=== PATIENT | male | born 1945 | race Caucasian/White ===

== ENCOUNTER 2017-06-30 12:28 | Emergency (ER) | payer MEDICARE, OTHER ==
[2017-06-30] MEDS ORDERED: Acetaminophen 500 MG Tab PO ONE (12:40)
--- NOTE | 2017-06-30 12:49 | EDM.PDOC ---
ED HPI GENERAL MEDICAL PROBLEM - General Chief Complaint: General Stated Complaint: BY AMBULANCE Time Seen by Provider: 06/30/17 12:46 Source of Information: Reports: Patient History Limitations: Reports: No Limitations - History of Present Illness INITIAL COMMENTS - FREE TEXT/NARRATIVE: Pt presents to the ER per [facility] with c/o fever, weakness, sore throat, cough. He and his state that he began experiencing cold symptoms about 3 days ago. Yesterday he began spiking a fever and feeling more sob. states he has been very weak and sleeping more. He states he has had a sore throat and cough productive of yellow phlegm. Pt denies chest pains, N/V/D. Onset: Gradual Onset Date: 06/27/17 Location: Reports: Head, Neck, Chest - Related Data Allergies Allergy/AdvReac Type Severity Reaction Status Date / Time azithromycin [From Zithromax] Allergy rash/hives Verified 06/30/17 12:41 Home Meds: Home Meds Allopurinol [Zyloprim] 1 tab PO DAILY 06/30/17 [History] Carvedilol [Carvedilol] 1 tab PO BID 06/30/17 [History] Digoxin [Digoxin] 1 tab PO DAILY 06/30/17 [History] Furosemide [Furosemide] 1 tab PO DAILY 06/30/17 [History] Glimepiride [Amaryl] 1 tab PO DAILY 06/30/17 [History] Losartan [Cozaar] 1 tab PO DAILY 06/30/17 [History] Simvastatin [Zocor] 1 tab PO BEDTIME 06/30/17 [History] Warfarin Sodium [Jantoven] 1 tab PO ASDIRECTED 06/30/17 [History] Warfarin Sodium [Jantoven] 7.5 mg PO ASDIRECTED 06/30/17 [History] metFORMIN HCl [Metformin HCl] 1 tab PO BID 06/30/17 [History] ED ROS GENERAL - Review of Systems Review Of Systems: ROS reveals no pertinent complaints other than HPI. ED EXAM, SEPSIS - Physical Exam Exam: See Below Exam Limited By: No Limitations General Appearance: Alert, WD/WN, Mild Distress Eye Exam: Bilateral Eye: EOMI, Normal Inspection, PERRL (3 brisk) Ears: Normal External Exam, Hearing Grossly Normal Nose: Normal Inspection Throat/Mouth: Normal Voice, No Airway Compromise, Other (pharyngeal erythema) Head: Atraumatic, Normocephalic Neck: Normal Inspection, Supple, Non-Tender, Full Range of Motion Respiratory/Chest: No Accessory Muscle Use, Chest Non-Tender, Decreased Breath Sounds, Rhonchi Cardiovascular: Tachycardia, Irregularly Irregular Peripheral Pulses: 1+: Radial (L), Radial (R), Dorsalis Pedis (L), Dorsalis Pedis (R) GI/Abdominal Exam: Normal Bowel Sounds, Soft, Non-Tender, No Organomegaly, No Distention, No Abnormal Bruit, No Mass (Male) Exam: Deferred Rectal (Males) Exam: Deferred Back: Normal Inspection, Full Range of Motion Extremities: Normal Inspection, Normal Range of Motion, Non-Tender, No Pedal Edema, Normal Capillary Refill Neurological: Alert, Oriented, Normal Cognition, Normal Gait, No Motor/Sensory Deficits, Slow to Respond Psychiatric: Normal Affect, Normal Mood Skin: Warm, Dry, Intact, Normal Color, No Rash Lymphatic: Bilateral: No Adenopathy EKG INTERPRETATION EKG Date: 06/30/17 Time: 12:38 Rhythm: A-Fib Rate (Beats/Min): 146 Comparison: NA - No Prior EKG Course - Vital Signs Last Recorded V/S: Last Vital Signs Temp 103 F H 06/30/17 14:52 Pulse 132 H 06/30/17 13:51 Resp 22 H 06/30/17 13:51 BP 119/84 06/30/17 13:51 Pulse Ox 99 06/30/17 13:51 - Orders/Labs/Meds Orders: Active Orders 24 hr Category Date Time Status EKG Documentation Completion [RC] STAT Care 06/30/17 12:40 Active CULTURE BLOOD [BC] Stat Lab 06/30/17 12:50 Received CULTURE BLOOD [BC] Stat Lab 06/30/17 12:58 Received Blood Culture x2 Reflex Set [OM.PC] Stat Oth 06/30/17 12:40 Ordered Labs: Laboratory Tests 06/30/17 06/30/17 06/30/17 Range/Units 12:50 12:50 12:50 WBC 15.8 H (5.0-10.0) 10^3/uL RBC 4.39 L (4.6-6.2) 10^6/uL Hgb 13.2 L (14.0-18.0) g/dL Hct 39.2 L (40.0-54.0) % MCV 89.3 (80-100) fL MCH 30.1 (27.0-34.0) pg MCHC 33.7 (33.0-35.0) g/dL Plt Count 214 (150-450) 10^3/uL Neut % (Auto) 77.3 H (42.2-75.2) % Lymph % (Auto) 14.2 L (20.5-50.1) % Hutchinson % (Auto) 8.1 H (2-8) % Eos % (Auto) 0.2 L (1.0-3.0) % Baso % (Auto) 0.2 (0.0-1.0) % PT (9.0-12.0) SEC INR (0.9-1.2) Sodium 137 (135-145) mmol/L Potassium 3.9 (3.6-5.0) mmol/L Chloride 105 (101-111) mmol/L Carbon Dioxide 22.0 (21.0-31.0) mmol/L Anion Gap 13.9 BUN 20 H (7-18) mg/dL Creatinine 1.5 H (0.6-1.3) mg/dL Est Cr Clr Drug Dosing 41.01 mL/min Estimated GFR (MDRD) 46 BUN/Creatinine Ratio 13.33 Glucose 179 H (74-105) mg/dL Lactic Acid 1.8 (0.5-2.2) mmol/L Calcium 8.7 (8.4-10.2) mg/dl Total Bilirubin 0.9 (0.2-1.0) mg/dL AST 21 (10-42) IU/L ALT 14 (10-60) IU/L Alkaline Phosphatase 40 L (42-121) IU/L Troponin I < 0.02 (0.00-0.02) ng/ml B-Natriuretic Peptide (0-100) pg/ml Total Protein 7.7 (6.7-8.2) g/dl Albumin 3.8 (3.2-5.5) g/dl Globulin 3.9 Albumin/Globulin Ratio 0.97 Digoxin (0-2.5) ng/ml 06/30/17 06/30/17 06/30/17 Range/Units 12:50 12:50 12:50 WBC (5.0-10.0) 10^3/uL RBC (4.6-6.2) 10^6/uL Hgb (14.0-18.0) g/dL Hct (40.0-54.0) % MCV (80-100) fL MCH (27.0-34.0) pg MCHC (33.0-35.0) g/dL Plt Count (150-450) 10^3/uL Neut % (Auto) (42.2-75.2) % Lymph % (Auto) (20.5-50.1) % Hutchinson % (Auto) (2-8) % Eos % (Auto) (1.0-3.0) % Baso % (Auto) (0.0-1.0) % PT 17.7 H (9.0-12.0) SEC INR 1.8 H (0.9-1.2) Sodium (135-145) mmol/L Potassium (3.6-5.0) mmol/L Chloride (101-111) mmol/L Carbon Dioxide (21.0-31.0) mmol/L Anion Gap BUN (7-18) mg/dL Creatinine (0.6-1.3) mg/dL Est Cr Clr Drug Dosing mL/min Estimated GFR (MDRD) BUN/Creatinine Ratio Glucose (74-105) mg/dL Lactic Acid (0.5-2.2) mmol/L Calcium (8.4-10.2) mg/dl Total Bilirubin (0.2-1.0) mg/dL AST (10-42) IU/L ALT (10-60) IU/L Alkaline Phosphatase (42-121) IU/L Troponin I (0.00-0.02) ng/ml B-Natriuretic Peptide 102 H (0-100) pg/ml Total Protein (6.7-8.2) g/dl Albumin (3.2-5.5) g/dl Globulin Albumin/Globulin Ratio Digoxin 1.1 (0-2.5) ng/ml Meds: Medications Discontinued Medications Generic Name Dose Route Start Last Admin Trade Name Freq PRN Reason Stop Dose Admin Acetaminophen 1,000 mg 06/30/17 12:40 06/30/17 12:53 Tylenol Extra Strength PO 06/30/17 12:41 1,000 mg ONETIME ONE Administration Diltiazem HCl 25 mg 12/16/17 14:30 06/30/17 14:41 Diltiazem IVPUSH 06/30/17 14:31 25 mg ONETIME ONE Administration Sodium Chloride 1,000 mls @ 100 mls/hr 06/30/17 13:15 06/30/17 13:09 Normal Saline IV 100 mls/hr ASDIRECTED ALEX Administration Levofloxacin/Dextrose 500 mg/ 100 mls @ 100 mls/hr 06/30/17 14:29 06/30/17 14 :59 Premix IV 06/30/17 15:28 100 mls/hr ONETIME ONE Administration Ibuprofen 600 mg 06/30/17 14:29 06/30/17 14:52 Motrin PO 06/30/17 14:30 600 mg ONETIME ONE Administration - Radiology Interpretation Free Text/Narrative:: Portable Chest xray: Cardiomegaly with very mild CHF. No pneumonia See rad report Departure - Departure Time of Disposition: 15:14 Disposition: DC/Tfer to [facility] Condition: Fair, Serious Clinical Impression: Hyperthermia, Neutrophilic leukocytosis - Discharge Information Referrals: PCP,None [Primary Care Provider] - Forms: ED Department Discharge, Interfacility Transfer EMTALA - My Orders Last 24 Hours: My Active Orders 06/30/17 12:40 EKG Documentation Completion [RC] STAT Blood Culture x2 Reflex Set [OM.PC] Stat 06/30/17 12:50 CULTURE BLOOD [BC] Stat 06/30/17 12:58 CULTURE BLOOD [BC] Stat - Assessment/Plan Last 24 Hours: My Active Orders 06/30/17 12:40 EKG Documentation Completion [RC] STAT Blood Culture x2 Reflex Set [OM.PC] Stat 06/30/17 12:50 CULTURE BLOOD [BC] Stat 06/30/17 12:58 CULTURE BLOOD [BC] Stat
[2017-06-30] MEDS ORDERED: Sodium Chloride 0.9% 1,000 ML IV SCH (13:15)
[2017-06-30 13:22] LABS: CHLORIDE,CL 105 mmol/L (101-111); SODIUM,NA 137 mmol/L (135-145)
[2017-06-30] MEDS ORDERED: Ibuprofen 600 MG Tab PO ONE (14:29)
[2017-06-30] MEDS ORDERED: Levofloxacin/Dextrose 5%-Water 500 MG in Premix Bag 1 BAG IV ONE (14:29)
[2017-06-30] MEDS ORDERED: Diltiazem 25 MG/5 ML SDV IVPUSH ONE (14:30)
--- NOTE | 2017-07-04 10:50 | EKG ---
06/30/2017 - SHANTI ORTIZ - FINDINGS: I reviewed the EKG and agree with the machine's reading. [facility] /[id number]
== END 2017-06-30 15:14 ==
LOC: DL.ED 12:28
DX: D72.829 Elevated white blood cell count, unspecified (principal); R06.02 Shortness of breath; Z88.1 Allergy status to other antibiotic agents; Z79.899 Other long term (current) drug therapy; Z79.01 Long term (current) use of anticoagulants; Z79.84 Long term (current) use of oral hypoglycemic drugs
CPT/HCPCS: 36415; 71010; 80053; 80162; 83605; 83880; 84484; 85025; 85610; 87040; 87804; 93005; 93010; 96361; 96374; 96375; 99285; A9270; J1956; J3490; J7030

== ENCOUNTER 2020-12-22 05:31 | Day surgery (SDC) | payer MEDICARE, OTHER ==
[~2020-12-22 05:31] MED LIST: Dextrose 5%-0.45% NaCl 1,000 ML IV SCH; Midazolam 1 MG/ML 2 ML SDV ONE; Sodium Chloride 0.9% 10 ML Syringe FLUSH PRN; fentaNYL 100 MCG/2 ML SDV ONE
[2020-12-22] MEDS ORDERED: fentaNYL 100 MCG/2 ML SDV IV ONE ×3 (05:32→06:51)
[2020-12-22] MEDS ORDERED: Midazolam 1 MG/ML 2 ML SDV IV ONE ×4 (05:32→06:54)
--- NOTE | 2020-12-22 07:56 | OR ---
DATE: 12/22/2020 PROCEDURE: Esophagogastroduodenoscopy and multiple pinch biopsies. INSTRUMENT USED: [id number]-[id number] Olympus video panendoscope. PREMEDICATIONS: No oral or topical anesthesia used. Fentanyl 100 mcg intravenous, Versed 2 mg intravenous. Nasal O2 cannula. The procedure was done under pulse oximetry, BP recording, and hall monitor. INDICATION: The patient with unexplained iron deficiency anemia on long-term Coumadin. DESCRIPTION OF PROCEDURE: Esophagogastroduodenoscopy is performed for detection of any active erosive lesions, Burden esophagus and/or malignancy also under consideration, H pylori status to be determined, small bowel biopsies to be obtained for celiac disease if indicated, endoscopic hemostasis therapy if needed. The scope was passed with ease. Adequate visualization of the esophagus was made from proximal to distal areas. No esophageal lesions identified. No distal esophageal stricture. No uphill or downhill esophageal varices. No Vernell-Nixon tear. No evidence of erosive esophagitis by [place] criteria. No esophageal polyp or tumor mass identified. Z-line was seen at around 39 cm distal to the oral verge. No proximal gastric varices noted. Gastric fundus examination by retroflexion showed no polypoid lesions. No gastric ulcer, malignant mass, or vascular ectasia identified. Few scattered gastric antral erosions were noted without bleeding from them. Duodenal bulb showed no ulcer. Visualized second part of the duodenum was unremarkable. Multiple pinch biopsies were taken from the gastric antrum and proximal body, and sent for PyloriTek test for H pylori, and if negative in an hour, tissue is to be sent for histopathology. No bleeding was noted from any of the visualized areas at the completion of examination. Photographs were taken of the duodenal bulb, gastric antrum, fundus, and distal esophagus. IMPRESSION: Gastric antral erosions. The patient tolerated the procedure well. [facility] /[id number]
== END 2020-12-22 09:03 | disposition home or self-care (01) ==
LOC: DL.ENDO 05:31
PROVIDERS: ATTEND Internal Medicine Gastroenterology
DX: K25.9 Gastric ulcer, unspecified as acute or chronic, without hemorrhage or perforation (principal); D64.9 Anemia, unspecified; E11.22 Type 2 diabetes mellitus with diabetic chronic kidney disease; I13.0 Hypertensive heart and chronic kidney disease with heart failure and stage 1 through stage 4 chronic kidney disease, or unspecified chronic kidney disease; N18.9 Chronic kidney disease, unspecified; I50.9 Heart failure, unspecified; I48.20 Chronic atrial fibrillation, unspecified
CPT/HCPCS: 87077; 88305; J2250; J3010; J7042

== ENCOUNTER 2020-12-31 06:00 | Day surgery (SDC) | payer MEDICARE, OTHER ==
[~2020-12-31 06:00] MED LIST changes: -Dextrose 5%-0.45% NaCl 1,000 ML IV SCH; -Sodium Chloride 0.9% 10 ML Syringe FLUSH PRN; -fentaNYL 100 MCG/2 ML SDV ONE
[2020-12-31] MEDS ORDERED: fentaNYL 100 MCG/2 ML SDV IV ONE ×3 (06:01→07:20)
[2020-12-31] MEDS ORDERED: fentaNYL 100 MCG/2 ML SDV ONE (06:01)
[2020-12-31] MEDS ORDERED: Midazolam 1 MG/ML 2 ML SDV IV ONE ×5 (06:01→07:42)
[2020-12-31] MEDS ORDERED: Dextrose 5%-0.45% NaCl 1,000 ML IV SCH (06:15)
--- NOTE | 2020-12-31 08:57 | OR ---
DATE: 12/31/2020 PROCEDURES: Total colonoscopy, narrow band imaging, multiple cold snare polypectomies, and biopsies. INSTRUMENT USED: [id number]-[id number] Olympus video colonoscope. PREMEDICATIONS: Fentanyl 100 mcg intravenous, Versed 3 mg intravenous. Nasal O2 cannula. The procedure was done under pulse oximetry, BP recording, and marketing support assistant. INDICATION: The patient with unexplained iron deficiency anemia. Colonoscopic examination is done for detection of any polypoid lesions and removal, endoscopic hemostasis therapy if needed. DESCRIPTION OF PROCEDURE: Initial rectal exam showed large polypoid mass at finger tip.Rigid anoscopy showed the large sessile polyp. Colonoscope was passed with ease. More than 2 cm sized sessile polyp noted in the distal rectum, villous configuration. NBI and magnification views were obtained. Multiple pinch biopsies were obtained and sent for histopathology. In the proximal sigmoid colon, 1 cm sized benign-appearing polyp was noted. Cold snare polypectomy was done. The tissue was retrieved and sent for histopathology. Polypectomy site was found to be clean. Photographs were obtained. Numerous scattered diverticula were noted in the distal left colon along with deformity. The scope was passed with ease up to the ileocecal area. Photographs were taken of the normal-appearing cecum, identified by landmarks of appendiceal orifice and double-bulged ileocecal folds. No bleeding was noted from any of the visualized areas at the commencement of the examination. The bowel preparation was found to be adequate, [place] scale 2 in all the regions, total score 6. In the mid ascending colon, around 2 cm sized superficial sessile polyp was noted. NBI views were obtained and photographs were taken. Numerous scattered diminutive polyps were noted, the ones in mid ascending colon and mid transverse colon removed by cold biopsy polypectomy technique. Probing the proximal sides of folds and flexures using adequate distention and clearing of the stool material, withdrawal of the scope was made. No bleeding was noted from any of the visualized areas at the completion of examination. IMPRESSION: 1. Diverticulosis. 2. Multiple colonic polyps. The patient tolerated the procedure well. [facility] [place] /[id number] OZZIE
== END 2020-12-31 10:08 | disposition home or self-care (01) ==
LOC: DL.ENDO 06:00
PROVIDERS: ATTEND Internal Medicine Gastroenterology
DX: D12.5 Benign neoplasm of sigmoid colon (principal); D12.8 Benign neoplasm of rectum; D12.2 Benign neoplasm of ascending colon; D12.3 Benign neoplasm of transverse colon; K57.30 Diverticulosis of large intestine without perforation or abscess without bleeding; D50.9 Iron deficiency anemia, unspecified; E11.22 Type 2 diabetes mellitus with diabetic chronic kidney disease; I13.0 Hypertensive heart and chronic kidney disease with heart failure and stage 1 through stage 4 chronic kidney disease, or unspecified chronic kidney disease; N18.9 Chronic kidney disease, unspecified; I50.9 Heart failure, unspecified; I48.20 Chronic atrial fibrillation, unspecified
CPT/HCPCS: 88305; J2250; J3010; J7042

== ENCOUNTER 2021-05-10 02:54 | Inpatient (IN) | payer MEDICARE, OTHER ==
[2021-05-10] MEDS ORDERED: Sodium Chloride 0.9% 1,000 ML IV ONE (03:33)
--- NOTE | 2021-05-10 03:58 | EDM.PDOC ---
ED HPI GENERAL MEDICAL PROBLEM - General Chief Complaint: Fever Stated Complaint: AMBULANCE Time Seen by Provider: 05/10/21 03:25 Source of Information: Reports: Patient, EMS, RN History Limitations: Reports: No Limitations - History of Present Illness INITIAL COMMENTS - FREE TEXT/NARRATIVE: ED via [facility] with generalized weakness, lower abdominal pain, hx colon cancer near rectum. pain intermittent and not new for patient. Weakness also comes and goes. getting out of bed [employer] and went only to knee and could not get up off floor No fever, Diarrhea today, maybe some blood not sure, Has had radiation and oral chemo. Last at [facility] on 04/27. Surgery scheduled for june for area next to rectum that radiation did not effect. No known exposure to flu or COVID - Related Data Allergies Allergy/AdvReac Type Severity Reaction Status Date / Time azithromycin [From Zithromax] Allergy rash/hives Verified 12/31/20 06:11 lisinopril AdvReac Cough Verified 12/31/20 06:11 Home Meds: Home Meds Digoxin 125 mcg PO DAILY 06/30/17 [History] Furosemide 20 mg PO DAILY 06/30/17 [History] Glimepiride [Amaryl] 4 mg PO DAILY 06/30/17 [History] carvediloL [Carvedilol] 6.25 mg PO BID 06/30/17 [History] Warfarin Sodium [Jantoven] 5 mg PO DAILY 05/10/21 [History] Past Medical History HEENT History: Reports: Hard of Hearing, Impaired Vision, Macular Degeneration Other HEENT History: wears glasses and wears hearing aides. Cardiovascular History: Reports: Afib, CAD, Heart Failure, High Cholesterol, Hypertension Respiratory History: Reports: Bronchitis, Recurrent Gastrointestinal History: Reports: None Genitourinary History: Reports: Chronic Renal Insuffiency Musculoskeletal History: Reports: Gout, Other (See Below) Other Musculoskeletal History: Knee pain, uses a lift chair Neurological History: Reports: None Psychiatric History: Reports: None Endocrine/Metabolic History: Reports: Diabetes, Type II, Obesity/BMI 30+ Hematologic History: Reports: None Immunologic History: Reports: None Oncologic (Cancer) History: Reports: None Dermatologic History: Reports: None - Infectious Disease History Infectious Disease History: Reports: Chicken Pox, Measles, Mumps - Past Surgical History Head Surgeries/Procedures: Reports: None HEENT Surgical History: Reports: Cataract Surgery, Tonsillectomy Cardiovascular Surgical History: Reports: Other (See Below) Other Cardiovascular Surgeries/Procedures: angiogram Respiratory Surgical History: Reports: None GI Surgical History: Reports: Appendectomy, Cholecystectomy, Colonoscopy, EGD, Hernia Repair/Other Male Surgical History: Reports: None Neurological Surgical History: Reports: None Musculoskeletal Surgical History: Reports: Shoulder Surgery, Other (See Below) Other Musculoskeletal Surgeries/Procedures:: rotory cuff surgery Oncologic Surgical History: Reports: None Dermatological Surgical History: Reports: None Social & Family History - Family History Family Medical History: No Pertinent Family History - Tobacco Use Tobacco Use Status *Q: Never Tobacco User Second Hand Smoke Exposure: No - Caffeine Use Caffeine Use: Reports: Coffee Other Caffeine Use: COFFEE 2-3 CUPS DAILY IN THE AM ED ROS GENERAL - Review of Systems Review Of Systems: Comprehensive ROS is negative, except as noted in HPI. ED EXAM, GENERAL - Physical Exam Exam: See Below Exam Limited By: No Limitations General Appearance: Alert, Mild Distress, Other (generalized weakness) Eye Exam: Bilateral Eye: EOMI, PERRL Ears: Normal External Exam Nose: Normal Inspection Throat/Mouth: Normal Inspection Head: Atraumatic, Normocephalic Neck: Normal Inspection Respiratory/Chest: No Respiratory Distress, Lungs Clear, Normal Breath Sounds Cardiovascular: No Edema, Tachycardia, Irregularly Irregular GI/Abdominal: Normal Bowel Sounds, Soft, Tender (general lower abdomen). No: Distended, Guarding Rectal (Males) Exam: Heme - Stool Back Exam: Normal Inspection, Other (stiff) Extremities: Pedal Edema (trace) Neurological: Alert, Oriented, Normal Cognition, Memory Loss Recent Events Psychiatric: Flat Affect Skin Exam: Warm, Dry, Intact, Pallor #1 Interpretation EKG Date: 05/10/21 Time: 03:24 Rhythm: A-Fib Rate (Beats/Min): 9 [place]: LAD-Left [place] Deviation P-Wave: Variable Comparison: NA - No Prior EKG Course - Vital Signs Last Recorded V/S: Last Vital Signs Temp 99.1 F 05/10/21 03:24 Pulse 127 H 05/10/21 03:24 Resp 18 05/10/21 03:24 BP 117/74 05/10/21 03:24 Pulse Ox 94 L 05/10/21 03:24 - Orders/Labs/Meds Orders: Active Orders 24 hr Category Date Time Status CULTURE BLOOD [BC] Stat Lab 05/10/21 03:30 Received Sodium Chloride 0.9% [Normal Saline] 1,000 ml Med 05/10/21 03:33 Active IV .BOLUS Blood Culture x2 Reflex Set [OM.PC] Stat Oth 05/10/21 03:25 Ordered Medication Orders Sodium Chloride (Normal Saline) 1,000 mls @ 200 mls/hr IV .BOLUS ONE Stop: 05/10/21 08:32 Last Infusion: 05/10/21 04:52 Dose: 250 mls/hr Documented by: Admin: 05/10/21 03:39 Dose: 200 mls/hr Documented by: KAROLYN Labs: Laboratory Tests 05/10/21 05/10/21 05/10/21 Range/Units 03:15 03:30 03:30 WBC 11.6 H (5.0-10.0) 10^3/uL RBC 3.70 L (4.6-6.2) 10^6/uL Hgb 11.7 L D (14.0-18.0) g/dL Hct 34.4 L (40.0-54.0) % MCV 93.0 D (80-100) fL MCH 31.6 (27.0-34.0) pg MCHC 34.0 (33.0-35.0) g/dL Plt Count 183 (150-450) 10^3/uL Neut % (Auto) 74.2 (42.2-75.2) % Lymph % (Auto) 10.4 L (20.5-50.1) % Ford % (Auto) 14.8 H (2-8) % Eos % (Auto) 0.3 L (1.0-3.0) % Baso % (Auto) 0.3 (0.0-1.0) % PT 78.3 H D (9.0-12.0) SEC INR 8.1 H* (0.9-1.2) Sodium (136-145) mmol/L Potassium (3.5-5.1) mmol/L Chloride (98-107) mmol/L Carbon Dioxide (21-32) mmol/L Anion Gap (7-13) mEq/L BUN (7-18) mg/dL Creatinine (0.70-1.30) mg/dL Est Cr Clr Drug Dosing mL/min Estimated GFR (MDRD) BUN/Creatinine Ratio (No establ ref range) Glucose (70-99) mg/dL Lactic Acid (0.4-2.0) mmol/L Calcium (8.5-10.1) mg/dL Magnesium (1.8-2.4) mg/dL Total Bilirubin (0.2-1.0) mg/dL AST (15-37) U/L ALT (16-63) U/L Alkaline Phosphatase (46-116) U/L Total Protein (6.4-8.2) g/dL Albumin (3.4-5.0) g/dL Globulin Albumin/Globulin Ratio Amylase (25-115) U/L Lipase (73-393) U/L Urine Color (YELLOW) Urine Appearance (CLEAR) Urine pH (5.0-9.0) Ur Specific [place] (1.005-1.030) Urine Protein (NEGATIVE) Urine Glucose (UA) (NEGATIVE) Urine Ketones (NEGATIVE) Urine Occult Blood (NEGATIVE) Urine Nitrite (NEGATIVE) Urine Bilirubin (NEGATIVE) Urine Urobilinogen (0.2-1.0) mg/dL Ur Leukocyte Esterase (NEGATIVE) U Hyaline Cast (Auto) Urine RBC (0-5) /HPF Urine WBC (0-5/HPF) /HPF Ur Epithelial Cells (NOT SEEN) /HPF Amorphous Sediment (NOT SEEN) /HPF Fine Granular Casts (NOT SEEN) /LPF Urine Mucus (NOT SEEN) /LPF Digoxin (0.9-2.0) ng/mL Influenza Type A RNA Negative (NEGATIVE) Influenza Type B RNA Negative (NEGATIVE) SARS-CoV-2 RNA (SHARMAINE) Negative (NEGATIVE) 05/10/21 05/10/21 05/10/21 Range/Units 03:30 03:30 03:30 WBC (5.0-10.0) 10^3/uL RBC (4.6-6.2) 10^6/uL Hgb (14.0-18.0) g/dL Hct (40.0-54.0) % MCV (80-100) fL MCH (27.0-34.0) pg MCHC (33.0-35.0) g/dL Plt Count (150-450) 10^3/uL Neut % (Auto) (42.2-75.2) % Lymph % (Auto) (20.5-50.1) % Ford % (Auto) (2-8) % Eos % (Auto) (1.0-3.0) % Baso % (Auto) (0.0-1.0) % PT (9.0-12.0) SEC INR (0.9-1.2) Sodium 136 (136-145) mmol/L Potassium 4.3 (3.5-5.1) mmol/L Chloride 100 (98-107) mmol/L Carbon Dioxide 27 (21-32) mmol/L Anion Gap 13.3 H (7-13) mEq/L BUN 18 (7-18) mg/dL Creatinine 2.06 H (0.70-1.30) mg/dL Est Cr Clr Drug Dosing 28.08 mL/min Estimated GFR (MDRD) 31 BUN/Creatinine Ratio 8.7 (No establ ref range) Glucose 230 H (70-99) mg/dL Lactic Acid 1.6 (0.4-2.0) mmol/L Calcium 8.5 (8.5-10.1) mg/dL Magnesium 1.9 (1.8-2.4) mg/dL Total Bilirubin 1.0 (0.2-1.0) mg/dL AST 18 (15-37) U/L ALT 17 (16-63) U/L Alkaline Phosphatase 81 (46-116) U/L Total Protein 7.6 (6.4-8.2) g/dL Albumin 3.1 L (3.4-5.0) g/dL Globulin 4.5 Albumin/Globulin Ratio 0.69 Amylase 58 (25-115) U/L Lipase 297 (73-393) U/L Urine Color (YELLOW) Urine Appearance (CLEAR) Urine pH (5.0-9.0) Ur Specific [place] (1.005-1.030) Urine Protein (NEGATIVE) Urine Glucose (UA) (NEGATIVE) Urine Ketones (NEGATIVE) Urine Occult Blood (NEGATIVE) Urine Nitrite (NEGATIVE) Urine Bilirubin (NEGATIVE) Urine Urobilinogen (0.2-1.0) mg/dL Ur Leukocyte Esterase (NEGATIVE) U Hyaline Cast (Auto) Urine RBC (0-5) /HPF Urine WBC (0-5/HPF) /HPF Ur Epithelial Cells (NOT SEEN) /HPF Amorphous Sediment (NOT SEEN) /HPF Fine Granular Casts (NOT SEEN) /LPF Urine Mucus (NOT SEEN) /LPF Digoxin 1.1 (0.9-2.0) ng/mL Influenza Type A RNA (NEGATIVE) Influenza Type B RNA (NEGATIVE) SARS-CoV-2 RNA (SHARMAINE) (NEGATIVE) 05/10/21 Range/Units 03:45 WBC (5.0-10.0) 10^3/uL RBC (4.6-6.2) 10^6/uL Hgb (14.0-18.0) g/dL Hct (40.0-54.0) % MCV (80-100) fL MCH (27.0-34.0) pg MCHC (33.0-35.0) g/dL Plt Count (150-450) 10^3/uL Neut % (Auto) (42.2-75.2) % Lymph % (Auto) (20.5-50.1) % [place] % (Auto) (2-8) % Eos % (Auto) (1.0-3.0) % Baso % (Auto) (0.0-1.0) % PT (9.0-12.0) SEC INR (0.9-1.2) Sodium (136-145) mmol/L Potassium (3.5-5.1) mmol/L Chloride (98-107) mmol/L Carbon Dioxide (21-32) mmol/L Anion Gap (7-13) mEq/L BUN (7-18) mg/dL Creatinine (0.70-1.30) mg/dL Est Cr Clr Drug Dosing mL/min Estimated GFR (MDRD) BUN/Creatinine Ratio (No establ ref range) Glucose (70-99) mg/dL Lactic Acid (0.4-2.0) mmol/L Calcium (8.5-10.1) mg/dL Magnesium (1.8-2.4) mg/dL Total Bilirubin (0.2-1.0) mg/dL AST (15-37) U/L ALT (16-63) U/L Alkaline Phosphatase (46-116) U/L Total Protein (6.4-8.2) g/dL Albumin (3.4-5.0) g/dL Globulin Albumin/Globulin Ratio Amylase (25-115) U/L Lipase (73-393) U/L Urine Color Yellow (YELLOW) Urine Appearance Clear (CLEAR) Urine pH 5.5 (5.0-9.0) Ur Specific [place] 1.025 (1.005-1.030) Urine Protein 30 H (NEGATIVE) Urine Glucose (UA) Negative (NEGATIVE) Urine Ketones Negative (NEGATIVE) Urine Occult Blood Trace-intact H (NEGATIVE) Urine Nitrite Negative (NEGATIVE) Urine Bilirubin Negative (NEGATIVE) Urine Urobilinogen 0.2 (0.2-1.0) mg/dL Ur Leukocyte Esterase Negative (NEGATIVE) U Hyaline Cast (Auto) Moderate Urine RBC 0-5 (0-5) /HPF Urine WBC 0-5 (0-5/HPF) /HPF Ur Epithelial Cells Few (NOT SEEN) /HPF Amorphous Sediment Few (NOT SEEN) /HPF Fine Granular Casts Few H (NOT SEEN) /LPF Urine Mucus Few H (NOT SEEN) /LPF Digoxin (0.9-2.0) ng/mL Influenza Type A RNA (NEGATIVE) Influenza Type B RNA (NEGATIVE) SARS-CoV-2 RNA (SHARMAINE) (NEGATIVE) Meds: Medications Generic Name Dose Route Start Last Admin Trade Name Freq PRN Reason Stop Dose Admin Sodium Chloride 1,000 mls @ 200 mls/hr 05/10/21 03:33 05/10/21 04:52 Normal Saline IV 05/10/21 08:32 250 mls/hr .BOLUS ONE Infusion Discontinued Medications Generic Name Dose Route Start Last Admin Trade Name Freq PRN Reason Stop Dose Admin Piperacillin Sod/Tazobactam 100 mls @ 200 mls/hr 05/10/21 04:48 05/10/21 05:00 Sod 3.375 gm/ Sodium Chloride IV 05/10/21 05:17 200 mls/hr ONETIME ONE Administration Phytonadione 2.5 mg 05/10/21 05:46 05/10/21 05:58 Phytonadione 5 Mg Tab PO 05/10/21 05:47 2.5 mg ONETIME ONE Administration - Re-Assessments/Exams Free Text/Narrative Re-Assessment/Exam: 05/10/21 06:[address] Love, accepting for admission. Departure - Departure Time of Disposition: 06:06 Disposition: Home, Self-Care 01 Condition: Fair Clinical Impression: Diverticulitis, Elevated INR, Chronic a-fib, Weakness, Chronic kidney disease Colon cancer Qualifiers: Colon location: unspecified part of colon Qualified Code(s): C18.9 - Malignant neoplasm of colon, unspecified Type 2 diabetes mellitus Qualifiers: Diabetes mellitus snf insulin use: without snf use Diabetes mellitus complication status: with other specified complication Qualified Code(s): E11.69 - Type 2 diabetes mellitus with other specified complication - Discharge Information *PRESCRIPTION DRUG MONITORING PROGRAM REVIEWED*: No *COPY OF PRESCRIPTION DRUG MONITORING REPORT IN PATIENT SUSANNA: No Forms: ED Department Discharge Sepsis Event Note (ED) - Evaluation Sepsis Screening Result: No Definite Risk - Focused Exam Vital Signs: Vital Signs Temp Pulse Resp BP Pulse Ox 05/10/21 03:24 99.1 F 127 H 18 117/74 94 L - My Orders Last 24 Hours: My Active Orders 05/10/21 03:25 Blood Culture x2 Reflex Set [OM.PC] Stat 05/10/21 03:30 CULTURE BLOOD [BC] Stat 05/10/21 03:33 Sodium Chloride 0.9% [Normal Saline] 1,000 ml IV .BOLUS - Assessment/Plan Last 24 Hours: My Active Orders 05/10/21 03:25 Blood Culture x2 Reflex Set [OM.PC] Stat 05/10/21 03:30 CULTURE BLOOD [BC] Stat 05/10/21 03:33 Sodium Chloride 0.9% [Normal Saline] 1,000 ml IV .BOLUS
[2021-05-10 04:11] LABS: ANION GAP 13.3 mEq/L (7-13)
[2021-05-10 04:20] LABS: CORONAVIRUS COVID-19 NAA NEGATIVE (NEGATIVE)
[2021-05-10] MEDS ORDERED: Piperacillin/Tazobactam 3.375 GM in Sodium Chloride 0.9% 100 ML IV ONE (04:48)
--- NOTE | 2021-05-10 05:30 | CT ---
PROCEDURE INFORMATION: Exam: CT Head Without Contrast Exam date and time: 05/10/2021 4:40 AM Age: 75 years old Clinical indication: Altered mental status/memory loss; Confusion or disorientation; Additional info: Pain HX colon cancer, TECHNIQUE: Imaging protocol: Computed tomography of the head without contrast. Radiation optimization: All CT scans at this facility use at least one of these dose optimization techniques: automated exposure control; mA and/or kV adjustment per patient size (includes targeted exams where dose is matched to clinical indication); or iterative reconstruction. COMPARISON: No relevant prior studies available. FINDINGS: Brain: There is moderate diffuse cerebral atrophy present, consistent with this patient's age. There is moderate diffuse heterogeneity of the white matter attenuation, consistent with chronic white matter ischemic changes. Cerebral ventricles: No ventriculomegaly. Paranasal sinuses: Visualized sinuses are unremarkable. No fluid levels. Mastoid air cells: Visualized mastoid air cells are well aerated. Bones/joints: Unremarkable. No acute fracture. Soft tissues: Unremarkable. IMPRESSION: Chronic changes without superimposed acute abnormality.
--- NOTE | 2021-05-10 05:40 | CT ---
PROCEDURE INFORMATION: Exam: CT Abdomen And Pelvis Without Contrast Exam date and time: 05/10/2021 4:40 AM Age: 75 years old Clinical indication: Abdominal pain; Generalized; Additional info: Pain HX colon cancer, TECHNIQUE: Imaging protocol: Computed tomography of the abdomen and pelvis without contrast. Radiation optimization: All CT scans at this facility use at least one of these dose optimization techniques: automated exposure control; mA and/or kV adjustment per patient size (includes targeted exams where dose is matched to clinical indication); or iterative reconstruction. COMPARISON: No relevant prior studies available. FINDINGS: Lungs: Centrilobular emphysema. Liver: Diffuse fatty infiltration of the liver. Gallbladder and bile ducts: The patient is status post cholecystectomy. Pancreas: Normal. No ductal dilation. Spleen: Normal. No splenomegaly. Adrenal glands: Normal. No mass. Kidneys and ureters: Normal. No hydronephrosis. Stomach and bowel: Findings consistent with diverticulitis involving the proximal sigmoid colon. There is focal circumferential wall thickening and surrounding inflammatory stranding. No abscess or perforation. Appendix: No evidence of appendicitis. Intraperitoneal space: Unremarkable. No free air. No significant fluid collection. Vasculature: Unremarkable. No abdominal aortic aneurysm. Lymph nodes: Unremarkable. No enlarged lymph nodes. Urinary bladder: Unremarkable as visualized. Reproductive: Unremarkable as visualized. Bones/joints: Unremarkable. No acute fracture. Soft tissues: Unremarkable. IMPRESSION: Sigmoid diverticulitis without abscess or perforation.
[2021-05-10] MEDS ORDERED: Phytonadione 5 MG Tab PO ONE (05:46)
[2021-05-10] MEDS ORDERED: Ciprofloxacin in D5W 400 MG in Premix Bag 1 BAG IV SCH ×2 (07:45)
--- NOTE | 2021-05-10 08:15 | PCM.HP ---
H&P History of Present Illness - General Date of Service: 05/10/21 Admit Problem/Dx: Admission Diagnosis/Problem Admission Diagnosis/Problem Diverticulitis - History of Present Illness Initial Comments - Free Text/Narative: Jazmyn is a 75-year-old man who presented to the ER with lower left abdominal pain. He was found to have diverticulitis with a slightly elevated white count. Jazmyn has a known current history of adenocarcinoma of the sigmoid colon, quite near to the rectum. He is due for surgery in June. He also has a history of chronic atrial fibrillation, and is currently anticoagulated with Coumadin. In the ED, he was found to have an INR of 8.0, was given 2.5 mg of oral vitamin K. Decision was made to admit him for IV antibiotics, due to his current cancer as well as his multiple medical comorbidities. - Related Data Allergies/Adverse Reactions: Allergies Allergy/AdvReac Type Severity Reaction Status Date / Time azithromycin [From Zithromax] Allergy rash/hives Verified 05/10/21 07:38 lisinopril AdvReac Cough Verified 05/10/21 07:38 Home Medications: Home Meds Digoxin 125 mcg PO DAILY 06/30/17 [History] Furosemide 20 mg PO DAILY 06/30/17 [History] Glimepiride [Amaryl] 4 mg PO DAILY 06/30/17 [History] carvediloL [Carvedilol] 6.25 mg PO BID 06/30/17 [History] Warfarin Sodium [Jantoven] 5 mg PO DAILY 05/10/21 [History] Past Medical History HEENT History: Reports: Hard of Hearing, Impaired Vision, Macular Degeneration Other HEENT History: wears glasses and wears hearing aides. Cardiovascular History: Reports: Afib, CAD, Heart Failure, High Cholesterol, Hypertension Respiratory History: Reports: Bronchitis, Recurrent Gastrointestinal History: Reports: Diverticulosis Genitourinary History: Reports: Chronic Renal Insuffiency Musculoskeletal History: Reports: Gout, Other (See Below) Other Musculoskeletal History: Knee pain, uses a lift chair Neurological History: Reports: None Psychiatric History: Reports: None Endocrine/Metabolic History: Reports: Diabetes, Type II, Obesity/BMI 30+ Hematologic History: Reports: None Immunologic History: Reports: None Oncologic (Cancer) History: Reports: Colon Dermatologic History: Reports: None - Infectious Disease History Infectious Disease History: Reports: Chicken Pox, Measles, Mumps - Past Surgical History Head Surgeries/Procedures: Reports: None HEENT Surgical History: Reports: Cataract Surgery, Tonsillectomy Cardiovascular Surgical History: Reports: Other (See Below) Other Cardiovascular Surgeries/Procedures: angiogram Respiratory Surgical History: Reports: None GI Surgical History: Reports: Appendectomy, Cholecystectomy, Colonoscopy, EGD, Hernia Repair/Other Male Surgical History: Reports: None Neurological Surgical History: Reports: None Musculoskeletal Surgical History: Reports: Shoulder Surgery, Other (See Below) Other Musculoskeletal Surgeries/Procedures:: rotory cuff surgery Oncologic Surgical History: Reports: None Dermatological Surgical History: Reports: None Social & Family History - Family History Family Medical History: No Pertinent Family History - Tobacco Use Tobacco Use Status *Q: Light Tobacco User Years of Tobacco use: 10 Packs/Tins Daily: 0 Used Tobacco, but Quit: Yes Month/Year Tobacco Last Used: 07/1979 Second Hand Smoke Exposure: No - Caffeine Use Caffeine Use: Reports: Coffee Other Caffeine Use: COFFEE 2-3 CUPS DAILY IN THE AM - Recreational Drug Use Recreational Drug Use: No H&P Review of Systems - Review of Systems: Review Of Systems: See Below General: Reports: Fever, Chills, Night Sweats. Denies: Weight Loss, Weight Gain HEENT: Denies: Hearing Changes, Visual Changes Pulmonary: Denies: Shortness of Breath, Cough Cardiovascular: Denies: Chest Pain, Dyspnea on Exertion Gastrointestinal: Reports: Other (See HPI) Genitourinary: Denies: Dysuria, Hematuria Musculoskeletal: Denies: Joint Pain, Joint Swelling Skin: Denies: Rash, Lesions Psychiatric: Reports: Other (No increased depressive or anxiety type symptoms) Neurological: Denies: Headache, Trouble Speaking, Difficulty Walking Hematologic/Lymphatic: Denies: Easy Bleeding, Easy Bruising Review of Systems Comment:: Rest of his review of systems is complete and negative Exam - Exam Exam: See Below - Vital Signs Vital Signs: Last Vital Signs Temp 98.2 F 05/10/21 06:22 Pulse 107 H 05/10/21 06:22 Resp 20 05/10/21 06:22 BP 100/59 L 05/10/21 06:22 Pulse Ox 96 05/10/21 06:22 Weight: 192 lb 6.4 oz - Exam Physical Exam Comments:: General: Patient is a 75-year-old man in no acute distress Oropharynx is clear, mucous membranes are moist Neck: Supple, no lymphadenopathy Heart: Irregularly irregular with a rate of 80: 1 out of 6 systolic murmur heard throughout Lungs: Clear to auscultation throughout Abdomen: Soft, tender to palpation in the lower left quadrant Neurological: Cranial nerves II through XII grossly intact, he is moving all extremities normally - Patient Data Lab Results Last 24 hrs: Laboratory Results - last 24 hr 05/10/21 05/10/21 05/10/21 Range/Units 03:15 03:30 03:30 WBC 11.6 H (5.0-10.0) 10^3/uL RBC 3.70 L (4.6-6.2) 10^6/uL Hgb 11.7 L D (14.0-18.0) g/dL Hct 34.4 L (40.0-54.0) % MCV 93.0 D (80-100) fL MCH 31.6 (27.0-34.0) pg MCHC 34.0 (33.0-35.0) g/dL Plt Count 183 (150-450) 10^3/uL Neut % (Auto) 74.2 (42.2-75.2) % Lymph % (Auto) 10.4 L (20.5-50.1) % Upton % (Auto) 14.8 H (2-8) % Eos % (Auto) 0.3 L (1.0-3.0) % Baso % (Auto) 0.3 (0.0-1.0) % PT 78.3 H D (9.0-12.0) SEC INR 8.1 H* (0.9-1.2) Sodium (136-145) mmol/L Potassium (3.5-5.1) mmol/L Chloride (98-107) mmol/L Carbon Dioxide (21-32) mmol/L Anion Gap (7-13) mEq/L BUN (7-18) mg/dL Creatinine (0.70-1.30) mg/dL Est Cr Clr Drug Dosing mL/min Estimated GFR (MDRD) BUN/Creatinine Ratio (No establ ref range) Glucose (70-99) mg/dL Lactic Acid (0.4-2.0) mmol/L Calcium (8.5-10.1) mg/dL Magnesium (1.8-2.4) mg/dL Total Bilirubin (0.2-1.0) mg/dL AST (15-37) U/L ALT (16-63) U/L Alkaline Phosphatase (46-116) U/L Total Protein (6.4-8.2) g/dL Albumin (3.4-5.0) g/dL Globulin Albumin/Globulin Ratio Amylase (25-115) U/L Lipase (73-393) U/L Urine Color (YELLOW) Urine Appearance (CLEAR) Urine pH (5.0-9.0) Ur Specific [place] (1.005-1.030) Urine Protein (NEGATIVE) Urine Glucose (UA) (NEGATIVE) Urine Ketones (NEGATIVE) Urine Occult Blood (NEGATIVE) Urine Nitrite (NEGATIVE) Urine Bilirubin (NEGATIVE) Urine Urobilinogen (0.2-1.0) mg/dL Ur Leukocyte Esterase (NEGATIVE) U Hyaline Cast (Auto) Urine RBC (0-5) /HPF Urine WBC (0-5/HPF) /HPF Ur Epithelial Cells (NOT SEEN) /HPF Amorphous Sediment (NOT SEEN) /HPF Fine Granular Casts (NOT SEEN) /LPF Urine Mucus (NOT SEEN) /LPF Digoxin (0.9-2.0) ng/mL Influenza Type A RNA Negative (NEGATIVE) Influenza Type B RNA Negative (NEGATIVE) SARS-CoV-2 RNA (SHARMAINE) Negative (NEGATIVE) 05/10/21 05/10/21 05/10/21 Range/Units 03:30 03:30 03:30 WBC (5.0-10.0) 10^3/uL RBC (4.6-6.2) 10^6/uL Hgb (14.0-18.0) g/dL Hct (40.0-54.0) % MCV (80-100) fL MCH (27.0-34.0) pg MCHC (33.0-35.0) g/dL Plt Count (150-450) 10^3/uL Neut % (Auto) (42.2-75.2) % Lymph % (Auto) (20.5-50.1) % Upton % (Auto) (2-8) % Eos % (Auto) (1.0-3.0) % Baso % (Auto) (0.0-1.0) % PT (9.0-12.0) SEC INR (0.9-1.2) Sodium 136 (136-145) mmol/L Potassium 4.3 (3.5-5.1) mmol/L Chloride 100 (98-107) mmol/L Carbon Dioxide 27 (21-32) mmol/L Anion Gap 13.3 H (7-13) mEq/L BUN 18 (7-18) mg/dL Creatinine 2.06 H (0.70-1.30) mg/dL Est Cr Clr Drug Dosing 28.08 mL/min Estimated GFR (MDRD) 31 BUN/Creatinine Ratio 8.7 (No establ ref range) Glucose 230 H (70-99) mg/dL Lactic Acid 1.6 (0.4-2.0) mmol/L Calcium 8.5 (8.5-10.1) mg/dL Magnesium 1.9 (1.8-2.4) mg/dL Total Bilirubin 1.0 (0.2-1.0) mg/dL AST 18 (15-37) U/L ALT 17 (16-63) U/L Alkaline Phosphatase 81 (46-116) U/L Total Protein 7.6 (6.4-8.2) g/dL Albumin 3.1 L (3.4-5.0) g/dL Globulin 4.5 Albumin/Globulin Ratio 0.69 Amylase 58 (25-115) U/L Lipase 297 (73-393) U/L Urine Color (YELLOW) Urine Appearance (CLEAR) Urine pH (5.0-9.0) Ur Specific [place] (1.005-1.030) Urine Protein (NEGATIVE) Urine Glucose (UA) (NEGATIVE) Urine Ketones (NEGATIVE) Urine Occult Blood (NEGATIVE) Urine Nitrite (NEGATIVE) Urine Bilirubin (NEGATIVE) Urine Urobilinogen (0.2-1.0) mg/dL Ur Leukocyte Esterase (NEGATIVE) U Hyaline Cast (Auto) Urine RBC (0-5) /HPF Urine WBC (0-5/HPF) /HPF Ur Epithelial Cells (NOT SEEN) /HPF Amorphous Sediment (NOT SEEN) /HPF Fine Granular Casts (NOT SEEN) /LPF Urine Mucus (NOT SEEN) /LPF Digoxin 1.1 (0.9-2.0) ng/mL Influenza Type A RNA (NEGATIVE) Influenza Type B RNA (NEGATIVE) SARS-CoV-2 RNA (SHARMAINE) (NEGATIVE) 05/10/21 Range/Units 03:45 WBC (5.0-10.0) 10^3/uL RBC (4.6-6.2) 10^6/uL Hgb (14.0-18.0) g/dL Hct (40.0-54.0) % MCV (80-100) fL MCH (27.0-34.0) pg MCHC (33.0-35.0) g/dL Plt Count (150-450) 10^3/uL Neut % (Auto) (42.2-75.2) % Lymph % (Auto) (20.5-50.1) % Upton % (Auto) (2-8) % Eos % (Auto) (1.0-3.0) % Baso % (Auto) (0.0-1.0) % PT (9.0-12.0) SEC INR (0.9-1.2) Sodium (136-145) mmol/L Potassium (3.5-5.1) mmol/L Chloride (98-107) mmol/L Carbon Dioxide (21-32) mmol/L Anion Gap (7-13) mEq/L BUN (7-18) mg/dL Creatinine (0.70-1.30) mg/dL Est Cr Clr Drug Dosing mL/min Estimated GFR (MDRD) BUN/Creatinine Ratio (No establ ref range) Glucose (70-99) mg/dL Lactic Acid (0.4-2.0) mmol/L Calcium (8.5-10.1) mg/dL Magnesium (1.8-2.4) mg/dL Total Bilirubin (0.2-1.0) mg/dL AST (15-37) U/L ALT (16-63) U/L Alkaline Phosphatase (46-116) U/L Total Protein (6.4-8.2) g/dL Albumin (3.4-5.0) g/dL Globulin Albumin/Globulin Ratio Amylase (25-115) U/L Lipase (73-393) U/L Urine Color Yellow (YELLOW) Urine Appearance Clear (CLEAR) Urine pH 5.5 (5.0-9.0) Ur Specific [place] 1.025 (1.005-1.030) Urine Protein 30 H (NEGATIVE) Urine Glucose (UA) Negative (NEGATIVE) Urine Ketones Negative (NEGATIVE) Urine Occult Blood Trace-intact H (NEGATIVE) Urine Nitrite Negative (NEGATIVE) Urine Bilirubin Negative (NEGATIVE) Urine Urobilinogen 0.2 (0.2-1.0) mg/dL Ur Leukocyte Esterase Negative (NEGATIVE) U Hyaline Cast (Auto) Moderate Urine RBC 0-5 (0-5) /HPF Urine WBC 0-5 (0-5/HPF) /HPF Ur Epithelial Cells Few (NOT SEEN) /HPF Amorphous Sediment Few (NOT SEEN) /HPF Fine Granular Casts Few H (NOT SEEN) /LPF Urine Mucus Few H (NOT SEEN) /LPF Digoxin (0.9-2.0) ng/mL Influenza Type A RNA (NEGATIVE) Influenza Type B RNA (NEGATIVE) SARS-CoV-2 RNA (SHARMAINE) (NEGATIVE) Result Diagrams: 05/10/21 03:30 05/10/21 03:30 Patrick Results Last 24 hrs: Microbiology 05/10/21 03:10 Stool Occult Blood (PATRICK) - Final Stool / Feces NEGATIVE OCCULT BLOOD REFERENCE RANGE: NEGATIVE *Q Meaningful Use (ADM) - VTE *Q VTE Pharmacological Contraindications *Q: High INR Value - VTE Risk Assess *Q Each Risk Factor Represents 1 Point: Other Risk Factor Other Venous Thromboembolism Risk: Chronic atrial fibrillation Total Score 1 Point Risk Factors: 1 Each Risk Factor Represents 2 Points: Malignancy (present or previous) Total Score 2 Point Risk Factors: 2 Each Risk Factor Represents 3 Points: Age 75 Years or Greater Total Score 3 Point Risk Factors: 3 Each Risk Factor Represents 5 Points: None Total Score 5 Point Risk Factors: 0 Venous Thromboembolism Risk Factor Score *Q: 6 - Problem List (1) Colon cancer SNOMED Code(s): 416675473 ICD Code: C18.9 - MALIGNANT NEOPLASM OF COLON, UNSPECIFIED Status: Chronic Priority: High Current Visit: Yes Qualifiers: Colon location: sigmoid Qualified Code(s): C18.7 - Malignant neoplasm of sigmoid colon (2) Diverticulitis SNOMED Code(s): 288574549 ICD Code: K57.92 - DVTRCLI OF INTEST, PART UNSP, W/O PERF OR ABSCESS W/O BLEED Status: Acute Current Visit: Yes (3) Chronic a-fib SNOMED Code(s): 162491756 ICD Code: I48.20 - CHRONIC ATRIAL FIBRILLATION, UNSPECIFIED Status: Chronic Priority: High Current Visit: Yes (4) Type 2 diabetes mellitus SNOMED Code(s): 15331727 ICD Code: E11.9 - TYPE 2 DIABETES MELLITUS WITHOUT COMPLICATIONS Status: Chronic Priority: High Current Visit: Yes Qualifiers: 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 use Diabetes mellitus complication status: with kidney complications Diabetes mellitus complication detail: with chronic kidney disease Chronic kidney disease stage: unspecified stage Qualified Code(s): E11.22 - Type 2 diabetes mellitus with diabetic chronic kidney disease (5) Chronic kidney disease SNOMED Code(s): 455813318 ICD Code: N18.9 - CHRONIC KIDNEY DISEASE, UNSPECIFIED Status: Chronic Current Visit: Yes (6) Long-term use of high-risk medication SNOMED Code(s): 464187275 ICD Code: Z79.899 - OTHER SENIOR PENSIONS ADMINISTRATOR (CURRENT) DRUG THERAPY Status: Chronic Current Visit: Yes Problem Details: Warfarin Problem List Initiated/Reviewed/Updated: Yes Orders Last 24hrs: Active Orders 24 hr Category Date Time Status Admission Diagnosis [ADT] Stat ADT 05/10/21 06:09 Ordered Admission Status [Patient Status] [ADT] Routine ADT 05/10/21 06:09 Active Oxygen Therapy [RC] PRN Care 05/10/21 07:39 Active Up ad Екатерина [RC] ASDIRECTED Care 05/10/21 07:38 Active VTE/DVT Education [RC] PER UNIT ROUTINE Care 05/10/21 07:39 Active Vital Signs [RC] Q4H Care 05/10/21 07:39 Active Clear Liquid Diet [DIET] Diet 05/10/21 Lunch Active CBC WITH AUTO DIFF [HEME] AM Lab 05/11/21 05:11 Ordered COMPREHENSIVE METABOLIC PN,CMP [CHEM] AM Lab 05/11/21 05:11 Ordered CULTURE BLOOD [BC] Stat Lab 05/10/21 03:30 Received INR,PT,PROTHROMBIN TIME [COAG] AM Lab 05/11/21 05:11 Ordered INR,PT,PROTHROMBIN TIME [COAG] Routine Lab 05/10/21 17:00 Ordered Ciprofloxacin in D5W [Cipro in D5W 400 MG/200 ML] 400 Med 05/10/21 07:45 Active mg Premix Bag 1 bag IV Q18H Digoxin [Lanoxin] Med 05/10/21 08:00 Active 125 mcg PO DAILY@0800 Furosemide [Lasix] Med 05/10/21 09:00 Active 20 mg PO DAILY Glimepiride [Amaryl] Med 05/10/21 09:00 Active 4 mg PO DAILY HYDROmorphone [Dilaudid] Med 05/10/21 07:45 Active 0.5 mg IVPUSH Q1H PRN Lactated Ringers [Ringers, Lactated] 1,000 ml Med 05/10/21 07:45 Active IV ASDIRECTED Sodium Chloride 0.9% [Normal Saline] 1,000 ml Med 05/10/21 03:33 Active IV .BOLUS carvediloL [Coreg] Med 05/10/21 09:00 Active 6.25 mg PO BIDMEALS metroNIDAZOLE/Normal Saline [Flagyl in NS 500 MG/100 ML Med 05/10/21 07:45 Active ] 500 mg Premix Bag 100 bag IV Q8H Blood Culture x2 Reflex Set [OM.PC] Stat Oth 05/10/21 03:25 Ordered Medication Orders Carvedilol (Carvedilol 6.25 Mg Tab) 6.25 mg PO BIDMEALS [facility] Digoxin (Digoxin 125 Mcg Tab) 125 mcg PO DAILY@0800 [facility] Furosemide (Furosemide 20 Mg Tab) 20 mg PO DAILY [facility] Glimepiride (Glimepiride 2 Mg Tab) 4 mg PO DAILY [facility] Hydromorphone HCl (Hydromorphone 0.5 Mg/0.5 Ml Syringe) 0.5 mg IVPUSH Q1H PRN PRN Reason: Pain Sodium Chloride (Normal Saline) 1,000 mls @ 200 mls/hr IV .BOLUS ONE Stop: 05/10/21 08:32 Last Infusion: 05/10/21 04:52 Dose: 250 mls/hr Documented by: Admin: 05/10/21 03:39 Dose: 200 mls/hr Documented by: KAROLYN Lactated Ringer's (Ringers, Lactated) 1,000 mls @ 125 mls/hr IV ASDIRECTED ALEX Ciprofloxacin/Dextrose 400 mg/ (Premix) 200 mls @ 200 mls/hr IV Q18H [facility] Last Admin: 05/10/21 08:01 Dose: 200 mls/hr Documented by: CHRISTOPHER Metronidazole 500 mg/ Premix 100 mls @ 100 mls/hr IV Q8H [facility] Assessment/Plan Comment:: Assessment/Plan: 1. 75-year-old man with diverticulitis of the sigmoid colon -His GFR is 31, so we will dose him with ciprofloxacin, 400 mg IV every 18 hours -Metronidazole, 500 mg IV every 8 hours -We will have him do a light clear liquid diet today, and advance his diet slowly tomorrow 2. Known adenocarcinoma of the sigmoid colon, near the rectum -We will watch for hematochezia or melena, he will be at risk of ileus due to this cancer 3. Chronic atrial fibrillation -Has not needed any rate control in the recent past 4. Chronic anticoagulation with warfarin, secondary to #3 -As above, was treated with 2.5 mg of vitamin K for an INR of 8.0 this morning. He has numerous risk factors for VTE: Including chronic atrial fibrillation, and current known malignancy. We need to avoid him getting subtherapeutic at all costs. He did not have any bleeding with the above INR. I will check an INR this afternoon, if he is getting close to therapeutic, we may dose him this evening or tomorrow a.m. 5. Diabetes mellitus type 2, with renal complication of chronic kidney disease -Is on glimepiride at home, has not needed insulin at home. We do not know his recent A1c -We will not do sliding scale and bedside checks unless patient has concerns 6. Chronic kidney disease, unknown stage -We will try to find out his baseline GFR today from his records if we can
[2021-05-10] MEDS: Lactated Ringers 1,000 ML IV SCH ×2 (08:48→17:14)
[2021-05-10] MEDS: metroNIDAZOLE/Normal Saline 500 MG in Premix Bag 100 BAG IV SCH ×2 (09:13→18:24)
[2021-05-10] MEDS: Furosemide 20 MG Tab PO SCH (09:29)
[2021-05-10] MEDS: Digoxin 125 MCG Tab PO SCH (09:29)
[2021-05-10] MEDS: Carvedilol 6.25 MG Tab PO SCH ×2 (09:29→18:23)
[2021-05-10] MEDS: Glimepiride 2 MG Tab PO SCH (09:30)
[2021-05-10] MEDS: Acetaminophen 325 MG Tab PO PRN ×2 (13:07→22:14)
[2021-05-11] MEDS: metroNIDAZOLE/Normal Saline 500 MG in Premix Bag 100 BAG IV SCH ×5 (00:44→16:32)
[2021-05-11] MEDS: Lactated Ringers 1,000 ML IV SCH ×3 (03:31→23:02)
[2021-05-11] MEDS: Ciprofloxacin in D5W 400 MG in Premix Bag 1 BAG IV SCH ×4 (04:02→22:58)
[2021-05-11 06:52] LABS: ANION GAP 14.3 mEq/L (7-13)
[2021-05-11] MEDS: Carvedilol 6.25 MG Tab PO SCH ×2 (08:12→19:24)
[2021-05-11] MEDS: Digoxin 125 MCG Tab PO SCH (08:12)
[2021-05-11] MEDS ORDERED: Carvedilol 6.25 MG Tab PO SCH (08:45)
[2021-05-11] MEDS: Glimepiride 2 MG Tab PO SCH (09:37)
[2021-05-11] MEDS: Losartan 25 MG Tab PO SCH (09:37)
[2021-05-11] MEDS: Allopurinol 100 MG Tab PO SCH (09:38)
[2021-05-11] MEDS: Furosemide 20 MG Tab PO SCH (09:38)
[2021-05-11] MEDS: Warfarin 5 MG Tab PO SCH (09:38)
[2021-05-11] MEDS: Saccharomyces Boulardii (Probiotic) 250 MG Cap PO SCH ×3 (10:32→20:20)
[2021-05-11] MEDS: HYDROmorphone 0.5 MG/0.5 ML Syringe IVPUSH PRN ×2 (10:46→20:16)
[2021-05-11] MEDS: Simvastatin 40 MG Tab PO SCH (20:19)
[2021-05-12] MEDS: metroNIDAZOLE/Normal Saline 500 MG in Premix Bag 100 BAG IV SCH ×3 (00:12→15:32)
[2021-05-12] MEDS: Lactated Ringers 1,000 ML IV SCH ×2 (08:28→19:29)
[2021-05-12] MEDS: Furosemide 20 MG Tab PO SCH (08:29)
[2021-05-12] MEDS: Allopurinol 100 MG Tab PO SCH (08:29)
[2021-05-12] MEDS: Warfarin 5 MG Tab PO SCH (08:29)
[2021-05-12] MEDS: Glimepiride 2 MG Tab PO SCH (08:29)
[2021-05-12] MEDS: Digoxin 125 MCG Tab PO SCH (08:29)
[2021-05-12] MEDS: Carvedilol 6.25 MG Tab PO SCH ×2 (08:33→17:19)
[2021-05-12] MEDS: HYDROmorphone 0.5 MG/0.5 ML Syringe IVPUSH PRN ×2 (08:33→22:31)
[2021-05-12] MEDS: Saccharomyces Boulardii (Probiotic) 250 MG Cap PO SCH ×3 (08:33→21:21)
[2021-05-12 09:11] LABS: ANION GAP 16.5 mEq/L (7-13)
--- NOTE | 2021-05-12 09:27 | PCM.PN ---
- General Info Date of Service: 05/12/21 Admission Dx/Problem (Free Text): Admission Diagnosis/Problem Admission Diagnosis/Problem Diverticulitis Subjective Update: Patient is doing better today. He states that his diarrhea has slowed down quite a bit. He is still feeling quite weak however, when I asked him if he felt ready to be discharged home today, he stated "I am not ready". He has been afebrile the past 24 hours. - Patient Data Vitals - Most Recent: Last Vital Signs Temp 98.2 F 05/12/21 07:49 Pulse 98 05/12/21 08:33 Resp 20 05/12/21 07:49 BP 129/74 05/12/21 08:33 Pulse Ox 97 05/12/21 07:49 Weight - Most Recent: 192 lb 6.4 oz I&O - Last 24 Hours: Intake & Output 05/11/21 05/12/21 05/12/21 22:59 06:59 14:59 Intake Total 1398 50 Balance 1398 50 Lab Results Last 24 Hours: Laboratory Results - last 24 hr 05/12/21 05/12/21 Range/Units 08:41 08:41 WBC 9.0 (5.0-10.0) 10^3/uL RBC 3.23 L (4.6-6.2) 10^6/uL Hgb 10.2 L (14.0-18.0) g/dL Hct 30.9 L (40.0-54.0) % MCV 95.7 (80-100) fL MCH 31.6 (27.0-34.0) pg MCHC 33.0 (33.0-35.0) g/dL Plt Count 165 (150-450) 10^3/uL Neut % (Auto) 77.1 H (42.2-75.2) % Lymph % (Auto) 9.9 L (20.5-50.1) % [place] % (Auto) 11.4 H (2-8) % Eos % (Auto) 1.5 (1.0-3.0) % Baso % (Auto) 0.1 (0.0-1.0) % Sodium 140 (136-145) mmol/L Potassium 3.5 (3.5-5.1) mmol/L Chloride 103 (98-107) mmol/L Carbon Dioxide 24 (21-32) mmol/L Anion Gap 16.5 H (7-13) mEq/L BUN 12 (7-18) mg/dL Creatinine 1.52 H (0.70-1.30) mg/dL Est Cr Clr Drug Dosing 38.05 mL/min Estimated GFR (MDRD) 45 BUN/Creatinine Ratio 7.9 (No establ ref range) Glucose 119 H (70-99) mg/dL Calcium 7.8 L (8.5-10.1) mg/dL Total Bilirubin 0.7 (0.2-1.0) mg/dL AST 26 (15-37) U/L ALT 15 L (16-63) U/L Alkaline Phosphatase 65 (46-116) U/L Total Protein 6.2 L (6.4-8.2) g/dL Albumin 2.3 L (3.4-5.0) g/dL Globulin 3.9 Albumin/Globulin Ratio 0.59 Patrick Results Last 24 Hours: Microbiology 05/10/21 03:30 Aerobic Blood Culture - Preliminary Blood - Venous NO GROWTH AFTER 2 DAYS Anaerobic Blood Culture - Preliminary NO GROWTH AFTER 2 DAYS Med Orders - Current: Current Medications Acetaminophen (Acetaminophen 325 Mg Tab) 650 mg PO Q6H PRN PRN Reason: Pain/Fever Last Admin: 05/10/21 22:14 Dose: 650 mg Documented by: Allopurinol (Allopurinol 100 Mg Tab) 100 mg PO DAILY [facility] Last Admin: 05/12/21 08:29 Dose: 100 mg Documented by: Carvedilol (Carvedilol 6.25 Mg Tab) 12.5 mg PO BIDMEALS [facility] Last Admin: 05/12/21 08:33 Dose: 12.5 mg Documented by: Digoxin (Digoxin 125 Mcg Tab) 125 mcg PO DAILY@0800 [facility] Last Admin: 05/12/21 08:29 Dose: 125 mcg Documented by: Furosemide (Furosemide 20 Mg Tab) 20 mg PO DAILY [facility] Last Admin: 05/12/21 08:29 Dose: 20 mg Documented by: Glimepiride (Glimepiride 2 Mg Tab) 4 mg PO DAILY [facility] Last Admin: 05/12/21 08:29 Dose: 4 mg Documented by: Hydromorphone HCl (Hydromorphone 0.5 Mg/0.5 Ml Syringe) 0.5 mg IVPUSH Q1H PRN PRN Reason: Pain Last Admin: 05/12/21 08:33 Dose: 0.5 mg Documented by: Lactated Ringer's (Ringers, Lactated) 1,000 mls @ 125 mls/hr IV ASDIRECTED [facility] Last Admin: 05/12/21 08:28 Dose: 125 mls/hr Documented by: Ciprofloxacin/Dextrose 400 mg/ (Premix) 200 mls @ 200 mls/hr IV Q18H [facility] Last Admin: 05/11/21 22:58 Dose: 200 mls/hr Documented by: Metronidazole 500 mg/ Premix 100 mls @ 100 mls/hr IV Q8H [facility] Last Admin: 05/12/21 08:28 Dose: 100 mls/hr Documented by: Influenza Virus Vaccine (Pharmacy To Dose - Influenza Vaccine) 1 each IM DAILY [facility] Last Admin: 05/11/21 10:33 Dose: Not Given Documented by: Losartan Potassium (Losartan 25 Mg Tab) 25 mg PO Q48H [facility] Last Admin: 05/11/21 09:37 Dose: 25 mg Documented by: Ondansetron HCl (Ondansetron 4 Mg Tab.Dis) 4 mg PO Q6H PRN PRN Reason: Nausea/Vomiting Saccharomyces Boulardii (Saccharomyces Boulardii (Probiotic) 250 Mg Cap) 500 mg PO TID [facility] Last Admin: 05/12/21 08:33 Dose: 500 mg Documented by: Simvastatin (Simvastatin 40 Mg Tab) 40 mg PO BEDTIME [facility] Last Admin: 05/11/21 20:19 Dose: 40 mg Documented by: Warfarin Sodium (Warfarin 5 Mg Tab) 5 mg PO DAILY [facility] Last Admin: 05/12/21 08:29 Dose: 5 mg Documented by: Discontinued Medications Carvedilol (Carvedilol 6.25 Mg Tab) 6.25 mg PO BIDMEALS [facility] Last Admin: 05/11/21 08:12 Dose: 6.25 mg Documented by: Sodium Chloride (Normal Saline) 1,000 mls @ 200 mls/hr IV .BOLUS ONE Stop: 05/10/21 08:32 Last Infusion: 05/10/21 04:52 Dose: 250 mls/hr Documented by: Piperacillin Sod/Tazobactam (Sod 3.375 gm/ Sodium Chloride) 100 mls @ 200 mls/hr IV ONETIME ONE Stop: 05/10/21 05:17 Last Admin: 05/10/21 05:00 Dose: 200 mls/hr Documented by: Ciprofloxacin/Dextrose 400 mg/ (Premix) 200 mls @ 200 mls/hr IV Q18H [facility] Last Admin: 05/10/21 08:01 Dose: 200 mls/hr Documented by: Metronidazole 500 mg/ Premix 100 mls @ 100 mls/hr IV Q8H [facility] Last Admin: 05/11/21 08:04 Dose: Not Given Documented by: Phytonadione (Phytonadione 5 Mg Tab) 2.5 mg PO ONETIME ONE Stop: 05/10/21 05:47 Last Admin: 05/10/21 05:58 Dose: 2.5 mg Documented by: - Exam Physical Findings Comments:: General: Patient is a 75-year-old man in no acute distress Oropharynx is clear, mucous membranes are moist Heart: Regular rate and rhythm, 1 out of 6 systolic murmur heard throughout Lungs: Clear to auscultation throughout Abdomen soft, still some mild tenderness in the left lower quadrant, normal bowel sounds heard throughout - Patient Data Lab Results Last 24 hrs: Laboratory Results - last 24 hr 05/12/21 05/12/21 Range/Units 08:41 08:41 WBC 9.0 (5.0-10.0) 10^3/uL RBC 3.23 L (4.6-6.2) 10^6/uL Hgb 10.2 L (14.0-18.0) g/dL Hct 30.9 L (40.0-54.0) % MCV 95.7 (80-100) fL MCH 31.6 (27.0-34.0) pg MCHC 33.0 (33.0-35.0) g/dL Plt Count 165 (150-450) 10^3/uL Neut % (Auto) 77.1 H (42.2-75.2) % Lymph % (Auto) 9.9 L (20.5-50.1) % [place] % (Auto) 11.4 H (2-8) % Eos % (Auto) 1.5 (1.0-3.0) % Baso % (Auto) 0.1 (0.0-1.0) % Sodium 140 (136-145) mmol/L Potassium 3.5 (3.5-5.1) mmol/L Chloride 103 (98-107) mmol/L Carbon Dioxide 24 (21-32) mmol/L Anion Gap 16.5 H (7-13) mEq/L BUN 12 (7-18) mg/dL Creatinine 1.52 H (0.70-1.30) mg/dL Est Cr Clr Drug Dosing 38.05 mL/min Estimated GFR (MDRD) 45 BUN/Creatinine Ratio 7.9 (No establ ref range) Glucose 119 H (70-99) mg/dL Calcium 7.8 L (8.5-10.1) mg/dL Total Bilirubin 0.7 (0.2-1.0) mg/dL AST 26 (15-37) U/L ALT 15 L (16-63) U/L Alkaline Phosphatase 65 (46-116) U/L Total Protein 6.2 L (6.4-8.2) g/dL Albumin 2.3 L (3.4-5.0) g/dL Globulin 3.9 Albumin/Globulin Ratio 0.59 Result Diagrams: 05/12/21 08:41 05/12/21 08:41 Patrick Results Last 24 hrs: Microbiology 05/10/21 03:30 Aerobic Blood Culture - Preliminary Blood - Venous NO GROWTH AFTER 2 DAYS Anaerobic Blood Culture - Preliminary NO GROWTH AFTER 2 DAYS Sepsis Event Note - Evaluation Sepsis Screening Result: No Definite Risk - Focused Exam Vital Signs: Vital Signs Temp Pulse Pulse Resp BP BP Pulse Ox 05/12/21 08:33 98 129/74 05/12/21 08:29 98 05/12/21 07:49 98.2 F 98 20 129/74 97 05/12/21 04:00 97.9 F 112 H 20 136/83 96 05/12/21 00:00 98.6 F 110 H 20 125/76 90 L - Problem List & Annotations (1) Colon cancer SNOMED Code(s): 028312306 Code(s): C18.9 - MALIGNANT NEOPLASM OF COLON, UNSPECIFIED Status: Chronic Priority: High Current Visit: Yes Qualifiers: Colon location: sigmoid Qualified Code(s): C18.7 - Malignant neoplasm of sigmoid colon (2) Diverticulitis SNOMED Code(s): 355374532 Code(s): K57.92 - DVTRCLI OF INTEST, PART UNSP, W/O PERF OR ABSCESS W/O BLEED Status: Acute Current Visit: Yes (3) Chronic a-fib SNOMED Code(s): 941576559 Code(s): I48.20 - CHRONIC ATRIAL FIBRILLATION, UNSPECIFIED Status: Chronic Priority: High Current Visit: Yes (4) Type 2 diabetes mellitus SNOMED Code(s): 51759871 Code(s): E11.9 - TYPE 2 DIABETES MELLITUS WITHOUT COMPLICATIONS Status: Chronic Priority: High Current Visit: Yes Qualifiers: Diabetes mellitus intermediate designer insulin use: without intermediate designer use Diabetes mellitus complication status: with kidney complications Diabetes mellitus complication detail: with chronic kidney disease Chronic kidney disease stage: unspecified stage Qualified Code(s): E11.22 - Type 2 diabetes mellitus with diabetic chronic kidney disease (5) Chronic kidney disease SNOMED Code(s): 173192407 Code(s): N18.9 - CHRONIC KIDNEY DISEASE, UNSPECIFIED Status: Chronic Current Visit: Yes (6) Long-term use of high-risk medication SNOMED Code(s): 518968019 Code(s): Z79.899 - OTHER USP (CURRENT) DRUG THERAPY Status: Chronic Current Visit: Yes Annotation/Comment:: Warfarin - Problem List Review Problem List Initiated/Reviewed/Updated: Yes - My Orders Last 24 Hours: My Active Orders 05/11/21 09:00 Losartan [Cozaar] 25 mg PO Q48H Pharmacy to Dose - InFluenza V [Pharmacy to Dose - InFluenza Vaccine] 1 each IM DAILY Warfarin [Coumadin] 5 mg PO DAILY allopurinoL [Zyloprim] 100 mg PO DAILY 05/11/21 10:00 Saccharomyces Boulardii [Florastor] 500 mg PO TID 05/11/21 18:00 carvediloL [Coreg] 12.5 mg PO BIDMEALS 05/11/21 19:54 Ondansetron [Zofran ODT] 4 mg PO Q6H PRN 05/11/21 21:00 Simvastatin [Zocor] 40 mg PO BEDTIME 05/12/21 08:41 INR,PT,PROTHROMBIN TIME [COAG] Routine - Plan Plan:: Assessment/Plan: 1. 75-year-old man with diverticulitis of the sigmoid colon -His GFR is much improved, so we will switch him to ciprofloxacin 400 mg IV every 12 hours -Metronidazole, 500 mg IV every 8 hours -We will have him do a light clear liquid diet today, and advance his diet slowly tomorrow 2. 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 Chronic atrial fibrillation -His heart rate has been trending upwards while here, it is now averaging around 100, so I will start some metoprolol succinate with him today. This will be helpful in anticipation of his surgery upcoming anyway, if we can get him better controlled on a steady dose. 4. Chronic anticoagulation with warfarin, secondary to #3 -His INR fell to 3.6 yesterday, he received 5 mg orally. I am awaiting his INR today, and hopefully it has not dropped all the way to subtherapeutic, but that is a possibility. We will get him back therapeutic as soon as possible. 5. Diabetes mellitus type 2, with renal complication of chronic kidney disease -Is on glimepiride at home, has not needed insulin at home. We do not know his recent A1c -We will not do sliding scale and bedside checks unless patient has concerns 6. Chronic kidney disease, unknown stage -Creatinine has improved markedly since admission, no further concerns 7. VTE prophylaxis: Is anticoagulated on Coumadin
[2021-05-12] MEDS: Ciprofloxacin in D5W 400 MG in Premix Bag 1 BAG IV SCH ×4 (10:36→21:19)
[2021-05-12] MEDS: Metoprolol Succinate 25 MG Tab.ER PO SCH (10:36)
[2021-05-12] MEDS: Simvastatin 40 MG Tab PO SCH (21:21)
[2021-05-12] MEDS: Ondansetron 4 MG Tab.DIS PO PRN (22:30)
[2021-05-13] MEDS: metroNIDAZOLE/Normal Saline 500 MG in Premix Bag 100 BAG IV SCH ×4 (00:37→23:14)
[2021-05-13] MEDS: Lactated Ringers 1,000 ML IV SCH ×2 (05:26→15:27)
[2021-05-13 06:36] LABS: ANION GAP 15.4 mEq/L (7-13)
[2021-05-13] MEDS: Losartan 25 MG Tab PO SCH (09:33)
[2021-05-13] MEDS: Digoxin 125 MCG Tab PO SCH (09:33)
[2021-05-13] MEDS: Carvedilol 6.25 MG Tab PO SCH ×2 (09:33→17:55)
[2021-05-13] MEDS: Furosemide 20 MG Tab PO SCH (09:34)
[2021-05-13] MEDS: Glimepiride 2 MG Tab PO SCH (09:34)
[2021-05-13] MEDS: Metoprolol Succinate 25 MG Tab.ER PO SCH (09:34)
[2021-05-13] MEDS: Allopurinol 100 MG Tab PO SCH (09:34)
[2021-05-13] MEDS: Warfarin 5 MG Tab PO SCH (10:33)
--- NOTE | 2021-05-13 10:37 | PCM.PN ---
- General Info Date of Service: 05/11/21 Admission Dx/Problem (Free Text): Admission Diagnosis/Problem Admission Diagnosis/Problem Diverticulitis Subjective Update: Jazmyn states he had a rough night last night, with frequent loose stools. Nursing reports that there was no blood in any of the stools. He does not have much of an appetite this morning. Sheyla was admitted last night with diverticulitis of the sigmoid colon - Patient Data Vitals - Most Recent: Last Vital Signs Temp 99.2 F 05/13/21 08:00 Pulse 116 H 05/13/21 09:34 Resp 18 05/13/21 08:00 BP 176/66 H 05/13/21 09:34 Pulse Ox 93 L 05/13/21 08:00 Weight - Most Recent: 192 lb 6.4 oz I&O - Last 24 Hours: Intake & Output 05/12/21 05/13/21 05/13/21 22:59 06:59 14:59 Intake Total 400 700 Balance 400 700 Lab Results Last 24 Hours: Laboratory Results - last 24 hr 05/13/21 05/13/21 05/13/21 Range/Units 05:50 05:50 05:50 WBC 6.0 (5.0-10.0) 10^3/uL RBC 2.87 L (4.6-6.2) 10^6/uL Hgb 9.1 L (14.0-18.0) g/dL Hct 27.6 L (40.0-54.0) % MCV 96.2 (80-100) fL MCH 31.7 (27.0-34.0) pg MCHC 33.0 (33.0-35.0) g/dL Plt Count 169 (150-450) 10^3/uL Neut % (Auto) 72.6 (42.2-75.2) % Lymph % (Auto) 10.8 L (20.5-50.1) % [place] % (Auto) 13.4 H (2-8) % Eos % (Auto) 3.0 (1.0-3.0) % Baso % (Auto) 0.2 (0.0-1.0) % PT 48.1 H D (9.0-12.0) SEC INR 4.9 H (0.9-1.2) Sodium 142 (136-145) mmol/L Potassium 3.4 L (3.5-5.1) mmol/L Chloride 105 (98-107) mmol/L Carbon Dioxide 25 (21-32) mmol/L Anion Gap 15.4 H (7-13) mEq/L BUN 10 (7-18) mg/dL Creatinine 1.49 H (0.70-1.30) mg/dL Est Cr Clr Drug Dosing 38.82 mL/min Estimated GFR (MDRD) 46 BUN/Creatinine Ratio 6.7 (No establ ref range) Glucose 106 H (70-99) mg/dL Calcium 7.8 L (8.5-10.1) mg/dL Total Bilirubin 0.4 (0.2-1.0) mg/dL AST 31 (15-37) U/L ALT 16 (16-63) U/L Alkaline Phosphatase 67 (46-116) U/L Total Protein 5.8 L (6.4-8.2) g/dL Albumin 2.1 L (3.4-5.0) g/dL Globulin 3.7 Albumin/Globulin Ratio 0.57 Patrick Results Last 24 Hours: Microbiology 05/10/21 03:30 Aerobic Blood Culture - Preliminary Blood - Venous NO GROWTH AFTER 3 DAYS Anaerobic Blood Culture - Preliminary NO GROWTH AFTER 3 DAYS Med Orders - Current: Current Medications Acetaminophen (Acetaminophen 325 Mg Tab) 650 mg PO Q6H PRN PRN Reason: Pain/Fever Last Admin: 05/10/21 22:14 Dose: 650 mg Documented by: Allopurinol (Allopurinol 100 Mg Tab) 100 mg PO DAILY [facility] Last Admin: 05/13/21 09:34 Dose: 100 mg Documented by: Carvedilol (Carvedilol 6.25 Mg Tab) 12.5 mg PO BIDMEALS [facility] Last Admin: 05/13/21 09:33 Dose: 6.25 mg Documented by: Digoxin (Digoxin 125 Mcg Tab) 125 mcg PO DAILY@0800 [facility] Last Admin: 05/13/21 09:33 Dose: 125 mcg Documented by: Furosemide (Furosemide 20 Mg Tab) 20 mg PO DAILY [facility] Last Admin: 05/13/21 09:34 Dose: 20 mg Documented by: Glimepiride (Glimepiride 2 Mg Tab) 4 mg PO DAILY [facility] Last Admin: 05/13/21 09:34 Dose: 4 mg Documented by: Hydromorphone HCl (Hydromorphone 0.5 Mg/0.5 Ml Syringe) 0.5 mg IVPUSH Q1H PRN PRN Reason: Pain Last Admin: 05/12/21 22:31 Dose: 0.5 mg Documented by: Lactated Ringer's (Ringers, Lactated) 1,000 mls @ 125 mls/hr IV ASDIRECTED [facility] Last Admin: 05/13/21 05:26 Dose: 125 mls/hr Documented by: Metronidazole 500 mg/ Premix 100 mls @ 100 mls/hr IV Q8H [facility] Last Admin: 05/13/21 09:35 Dose: 100 mls/hr Documented by: Ciprofloxacin/Dextrose 400 mg/ (Premix) 200 mls @ 200 mls/hr IV Q12H [facility] Last Admin: 05/12/21 21:19 Dose: 200 mls/hr Documented by: Influenza Virus Vaccine (Pharmacy To Dose - Influenza Vaccine) 1 each IM DAILY [facility] Last Admin: 05/12/21 09:42 Dose: Not Given Documented by: Losartan Potassium (Losartan 25 Mg Tab) 25 mg PO Q48H [facility] Last Admin: 05/13/21 09:33 Dose: 25 mg Documented by: Metoprolol Succinate (Metoprolol Succinate 25 Mg Tab.Er) 25 mg PO DAILY [facility] Last Admin: 05/13/21 09:34 Dose: 25 mg Documented by: Ondansetron HCl (Ondansetron 4 Mg Tab.Dis) 4 mg PO Q6H PRN PRN Reason: Nausea/Vomiting Last Admin: 05/12/21 22:30 Dose: 4 mg Documented by: Saccharomyces Boulardii (Saccharomyces Boulardii (Probiotic) 250 Mg Cap) 500 mg PO TID [facility] Last Admin: 05/12/21 21:21 Dose: 500 mg Documented by: Simvastatin (Simvastatin 40 Mg Tab) 40 mg PO BEDTIME [facility] Last Admin: 05/12/21 21:21 Dose: 40 mg Documented by: Warfarin Sodium (Pharmacy To Dose - Warfarin) 0 dose .XX ASDIRECTED [facility] Discontinued Medications Carvedilol (Carvedilol 6.25 Mg Tab) 6.25 mg PO BIDMEALS [facility] Last Admin: 05/11/21 08:12 Dose: 6.25 mg Documented by: Sodium Chloride (Normal Saline) 1,000 mls @ 200 mls/hr IV .BOLUS ONE Stop: 05/10/21 08:32 Last Infusion: 05/10/21 04:52 Dose: 250 mls/hr Documented by: Piperacillin Sod/Tazobactam (Sod 3.375 gm/ Sodium Chloride) 100 mls @ 200 mls/h r IV ONETIME ONE Stop: 05/10/21 05:17 Last Admin: 05/10/21 05:00 Dose: 200 mls/hr Documented by: Ciprofloxacin/Dextrose 400 mg/ (Premix) 200 mls @ 200 mls/hr IV Q18H [facility] Last Admin: 05/10/21 08:01 Dose: 200 mls/hr Documented by: Metronidazole 500 mg/ Premix 100 mls @ 100 mls/hr IV Q8H [facility] Last Admin: 05/11/21 08:04 Dose: Not Given Documented by: Ciprofloxacin/Dextrose 400 mg/ (Premix) 200 mls @ 200 mls/hr IV Q18H [facility] Last Admin: 05/11/21 22:58 Dose: 200 mls/hr Documented by: Phytonadione (Phytonadione 5 Mg Tab) 2.5 mg PO ONETIME ONE Stop: 05/10/21 05:47 Last Admin: 05/10/21 05:58 Dose: 2.5 mg Documented by: Warfarin Sodium (Warfarin 5 Mg Tab) 5 mg PO DAILY [facility] Last Admin: 05/12/21 08:29 Dose: 5 mg Documented by: - Exam Physical Findings Comments:: General: Sheyla is a 75-year-old man in no acute distress Oropharynx is clear, mucous membranes are moist Neck: Supple, no lymphadenopathy Abdomen: Soft, he does have some mild tenderness in the left lower quadrant, but overall improved from yesterday. Hyperactive bowel sounds now heard throughout - Patient Data Lab Results Last 24 hrs: Laboratory Results - last 24 hr 05/13/21 05/13/21 05/13/21 Range/Units 05:50 05:50 05:50 WBC 6.0 (5.0-10.0) 10^3/uL RBC 2.87 L (4.6-6.2) 10^6/uL Hgb 9.1 L (14.0-18.0) g/dL Hct 27.6 L (40.0-54.0) % MCV 96.2 (80-100) fL MCH 31.7 (27.0-34.0) pg MCHC 33.0 (33.0-35.0) g/dL Plt Count 169 (150-450) 10^3/uL Neut % (Auto) 72.6 (42.2-75.2) % Lymph % (Auto) 10.8 L (20.5-50.1) % [place] % (Auto) 13.4 H (2-8) % Eos % (Auto) 3.0 (1.0-3.0) % Baso % (Auto) 0.2 (0.0-1.0) % PT 48.1 H D (9.0-12.0) SEC INR 4.9 H (0.9-1.2) Sodium 142 (136-145) mmol/L Potassium 3.4 L (3.5-5.1) mmol/L Chloride 105 (98-107) mmol/L Carbon Dioxide 25 (21-32) mmol/L Anion Gap 15.4 H (7-13) mEq/L BUN 10 (7-18) mg/dL Creatinine 1.49 H (0.70-1.30) mg/dL Est Cr Clr Drug Dosing 38.82 mL/min Estimated GFR (MDRD) 46 BUN/Creatinine Ratio 6.7 (No establ ref range) Glucose 106 H (70-99) mg/dL Calcium 7.8 L (8.5-10.1) mg/dL Total Bilirubin 0.4 (0.2-1.0) mg/dL AST 31 (15-37) U/L ALT 16 (16-63) U/L Alkaline Phosphatase 67 (46-116) U/L Total Protein 5.8 L (6.4-8.2) g/dL Albumin 2.1 L (3.4-5.0) g/dL Globulin 3.7 Albumin/Globulin Ratio 0.57 Result Diagrams: 05/13/21 05:50 05/13/21 05:50 Patrick Results Last 24 hrs: Microbiology 05/10/21 03:30 Aerobic Blood Culture - Preliminary Blood - Venous NO GROWTH AFTER 3 DAYS Anaerobic Blood Culture - Preliminary NO GROWTH AFTER 3 DAYS Sepsis Event Note - Evaluation Sepsis Screening Result: No Definite Risk - Focused Exam Vital Signs: Vital Signs Temp Pulse Pulse Resp BP BP Pulse Ox 10/29/21 09:34 116 H 176/66 H 05/13/21 09:33 116 H 176/66 H 05/13/21 08:00 99.2 F 116 H 18 117/66 93 L 05/13/21 04:00 98.6 F 110 H 18 118/77 96 05/13/21 00:00 99.2 F 109 H 20 121/78 95 - Problem List & Annotations (1) Colon cancer SNOMED Code(s): 908437328 Code(s): C18.9 - MALIGNANT NEOPLASM OF COLON, UNSPECIFIED Status: Chronic Priority: High Current Visit: Yes Qualifiers: Colon location: sigmoid Qualified Code(s): C18.7 - Malignant neoplasm of sigmoid colon (2) Diverticulitis SNOMED Code(s): 175302034 Code(s): K57.92 - DVTRCLI OF INTEST, PART UNSP, W/O PERF OR ABSCESS W/O BLEED Status: Acute Current Visit: Yes (3) Chronic a-fib SNOMED Code(s): 209273024 Code(s): I48.20 - CHRONIC ATRIAL FIBRILLATION, UNSPECIFIED Status: Chronic Priority: High Current Visit: Yes (4) Type 2 diabetes mellitus SNOMED Code(s): 39803234 Code(s): E11.9 - TYPE 2 DIABETES MELLITUS WITHOUT COMPLICATIONS Status: Chronic Priority: High Current Visit: Yes Qualifiers: Diabetes mellitus intermediate designer insulin use: without intermediate designer use Diabetes mellitus complication status: with kidney complications Diabetes mellitus complication detail: with chronic kidney disease Chronic kidney disease stage: unspecified stage Qualified Code(s): E11.22 - Type 2 diabetes mellitus with diabetic chronic kidney disease (5) Chronic kidney disease SNOMED Code(s): 622797778 Code(s): N18.9 - CHRONIC KIDNEY DISEASE, UNSPECIFIED Status: Chronic Current Visit: Yes (6) Long-term use of high-risk medication SNOMED Code(s): 234777187 Code(s): Z79.899 - OTHER NURSING HOME (CURRENT) DRUG THERAPY Status: Chronic Current Visit: Yes Annotation/Comment:: Warfarin - Problem List Review Problem List Initiated/Reviewed/Updated: Yes - My Orders Last 24 Hours: My Active Orders 05/12/21 10:00 Ciprofloxacin in D5W [Cipro in D5W 400 MG/200 ML] 400 mg Premix Bag 1 bag IV Q12H Metoprolol Succinate [Toprol XL] 25 mg PO DAILY 05/12/21 10:21 Resuscitation Status Routine 05/13/21 08:32 Consult to Occupational Therapy [OT Evaluation and Treatment] [CONS] Routine PT Evaluation and Treatment [CONS] Routine 05/13/21 09:00 Warfarin Pharmacy to Dose [Pharmacy to Dose - Warfarin] 0 dose .XX ASDIRECTED 05/14/21 06:00 INR,PT,PROTHROMBIN TIME [COAG] DAILY 05/15/21 06:00 INR,PT,PROTHROMBIN TIME [COAG] DAILY 05/16/21 06:00 INR,PT,PROTHROMBIN TIME [COAG] DAILY 05/17/21 06:00 INR,PT,PROTHROMBIN TIME [COAG] DAILY 05/18/21 06:00 INR,PT,PROTHROMBIN TIME [COAG] DAILY 05/19/21 06:00 INR,PT,PROTHROMBIN TIME [COAG] DAILY 05/20/21 06:00 INR,PT,PROTHROMBIN TIME [COAG] DAILY - Plan Plan:: Assessment/Plan: 1. 75-year-old man with diverticulitis of the sigmoid colon -Ciprofloxacin 400 mg IV every 12 hours -Metronidazole, 500 mg IV every 8 hours -Start Florastor probiotic today -[place]/BRAT diet to help with loose stools 2. 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 Chronic atrial fibrillation 4. Chronic anticoagulation with warfarin, secondary to #3 -INR this morning 3.6, he received 2.5mg oral Vit K yesterday in ER. Will dose him today at 5mg, continue daily checks 5. Diabetes mellitus type 2, with renal complication of chronic kidney disease -Is on glimepiride at home, has not needed insulin at home. We do not know his recent A1c -We will not do sliding scale and bedside checks unless patient has concerns 6. Chronic kidney disease, unknown stage -creatinine improved this morning 7. VTE prophylaxis: Is anticoagulated on Coumadin
[2021-05-13] MEDS ORDERED: Nitroglycerin 0.4 MG Tab.SL SL PRN (10:38)
[2021-05-13] MEDS: Ciprofloxacin in D5W 400 MG in Premix Bag 1 BAG IV SCH ×4 (10:39→21:52)
[2021-05-13] MEDS: HYDROmorphone 0.5 MG/0.5 ML Syringe IVPUSH PRN ×2 (10:42→22:36)
[2021-05-13] MEDS: Acetaminophen 325 MG Tab PO PRN ×2 (10:43→21:51)
--- NOTE | 2021-05-13 11:45 | PCM.PN ---
- General Info Date of Service: 05/13/21 Admission Dx/Problem (Free Text): Admission Diagnosis/Problem Admission Diagnosis/Problem Diverticulitis Subjective Update: Jazmyn is doing a little better today. He reports he is still having some occasional loose stools. Nursing reports he had an episode of incontinent stool this morning. He is on dual antibiotic therapy for diverticulitis. - Patient Data Vitals - Most Recent: Last Vital Signs Temp 100.3 F 05/13/21 11:05 Pulse 110 H 05/13/21 11:05 Resp 18 05/13/21 11:05 BP 121/76 05/13/21 11:05 Pulse Ox 96 05/13/21 11:05 Weight - Most Recent: 192 lb 6.4 oz I&O - Last 24 Hours: Intake & Output 05/12/21 05/13/21 05/13/21 22:59 06:59 14:59 Intake Total 400 700 20 Balance 400 700 20 Lab Results Last 24 Hours: Laboratory Results - last 24 hr 05/13/21 05/13/21 05/13/21 Range/Units 05:50 05:50 05:50 WBC 6.0 (5.0-10.0) 10^3/uL RBC 2.87 L (4.6-6.2) 10^6/uL Hgb 9.1 L (14.0-18.0) g/dL Hct 27.6 L (40.0-54.0) % MCV 96.2 (80-100) fL MCH 31.7 (27.0-34.0) pg MCHC 33.0 (33.0-35.0) g/dL Plt Count 169 (150-450) 10^3/uL Neut % (Auto) 72.6 (42.2-75.2) % Lymph % (Auto) 10.8 L (20.5-50.1) % [place] % (Auto) 13.4 H (2-8) % Eos % (Auto) 3.0 (1.0-3.0) % Baso % (Auto) 0.2 (0.0-1.0) % PT 48.1 H D (9.0-12.0) SEC INR 4.9 H (0.9-1.2) Sodium 142 (136-145) mmol/L Potassium 3.4 L (3.5-5.1) mmol/L Chloride 105 (98-107) mmol/L Carbon Dioxide 25 (21-32) mmol/L Anion Gap 15.4 H (7-13) mEq/L BUN 10 (7-18) mg/dL Creatinine 1.49 H (0.70-1.30) mg/dL Est Cr Clr Drug Dosing 38.82 mL/min Estimated GFR (MDRD) 46 BUN/Creatinine Ratio 6.7 (No establ ref range) Glucose 106 H (70-99) mg/dL Calcium 7.8 L (8.5-10.1) mg/dL Total Bilirubin 0.4 (0.2-1.0) mg/dL AST 31 (15-37) U/L ALT 16 (16-63) U/L Alkaline Phosphatase 67 (46-116) U/L Troponin I High Sens (<=76) pg/mL Total Protein 5.8 L (6.4-8.2) g/dL Albumin 2.1 L (3.4-5.0) g/dL Globulin 3.7 Albumin/Globulin Ratio 0.57 05/13/21 05/13/21 Range/Units 05:50 10:54 WBC (5.0-10.0) 10^3/uL RBC (4.6-6.2) 10^6/uL Hgb (14.0-18.0) g/dL Hct (40.0-54.0) % MCV (80-100) fL MCH (27.0-34.0) pg MCHC (33.0-35.0) g/dL Plt Count (150-450) 10^3/uL Neut % (Auto) (42.2-75.2) % Lymph % (Auto) (20.5-50.1) % [place] % (Auto) (2-8) % Eos % (Auto) (1.0-3.0) % Baso % (Auto) (0.0-1.0) % PT (9.0-12.0) SEC INR (0.9-1.2) Sodium (136-145) mmol/L Potassium (3.5-5.1) mmol/L Chloride (98-107) mmol/L Carbon Dioxide (21-32) mmol/L Anion Gap (7-13) mEq/L BUN (7-18) mg/dL Creatinine (0.70-1.30) mg/dL Est Cr Clr Drug Dosing mL/min Estimated GFR (MDRD) BUN/Creatinine Ratio (No establ ref range) Glucose (70-99) mg/dL Calcium (8.5-10.1) mg/dL Total Bilirubin (0.2-1.0) mg/dL AST (15-37) U/L ALT (16-63) U/L Alkaline Phosphatase (46-116) U/L Troponin I High Sens 11 11 (<=76) pg/mL Total Protein (6.4-8.2) g/dL Albumin (3.4-5.0) g/dL Globulin Albumin/Globulin Ratio Patrick Results Last 24 Hours: Microbiology 05/10/21 03:30 Aerobic Blood Culture - Preliminary Blood - Venous NO GROWTH AFTER 3 DAYS Anaerobic Blood Culture - Preliminary NO GROWTH AFTER 3 DAYS Med Orders - Current: Current Medications Acetaminophen (Acetaminophen 325 Mg Tab) 650 mg PO Q6H PRN PRN Reason: Pain/Fever Last Admin: 05/13/21 10:43 Dose: 650 mg Documented by: Allopurinol (Allopurinol 100 Mg Tab) 100 mg PO DAILY [facility] Last Admin: 05/13/21 09:34 Dose: 100 mg Documented by: Carvedilol (Carvedilol 6.25 Mg Tab) 12.5 mg PO BIDMEALS [facility] Last Admin: 05/13/21 09:33 Dose: 12.5 mg Documented by: Digoxin (Digoxin 125 Mcg Tab) 125 mcg PO DAILY@0800 [facility] Last Admin: 05/13/21 09:33 Dose: 125 mcg Documented by: Furosemide (Furosemide 20 Mg Tab) 20 mg PO DAILY [facility] Last Admin: 05/13/21 09:34 Dose: 20 mg Documented by: Glimepiride (Glimepiride 2 Mg Tab) 4 mg PO DAILY [facility] Last Admin: 05/13/21 09:34 Dose: 4 mg Documented by: Hydromorphone HCl (Hydromorphone 0.5 Mg/0.5 Ml Syringe) 0.5 mg IVPUSH Q1H PRN PRN Reason: Pain Last Admin: 05/13/21 10:42 Dose: 0.5 mg Documented by: Lactated Ringer's (Ringers, Lactated) 1,000 mls @ 125 mls/hr IV ASDIRECTED [facility] Last Admin: 05/13/21 05:26 Dose: 125 mls/hr Documented by: Metronidazole 500 mg/ Premix 100 mls @ 100 mls/hr IV Q8H [facility] Last Admin: 05/13/21 09:35 Dose: 100 mls/hr Documented by: Ciprofloxacin/Dextrose 400 mg/ (Premix) 200 mls @ 200 mls/hr IV Q12H [facility] Last Admin: 05/13/21 10:39 Dose: 200 mls/hr Documented by: Influenza Virus Vaccine (Pharmacy To Dose - Influenza Vaccine) 1 each IM DAILY [facility] Last Admin: 05/13/21 10:39 Dose: Not Given Documented by: Losartan Potassium (Losartan 25 Mg Tab) 25 mg PO Q48H [facility] Last Admin: 05/13/21 09:33 Dose: 25 mg Documented by: Metoprolol Succinate (Metoprolol Succinate 25 Mg Tab.Er) 25 mg PO DAILY [facility] Last Admin: 05/13/21 09:34 Dose: 25 mg Documented by: Nitroglycerin (Nitroglycerin 0.4 Mg Tab.Sl) 0.4 mg SL Q5M PRN PRN Reason: Chest Pain Last Admin: 05/13/21 10:55 Dose: 0.4 mg Documented by: Ondansetron HCl (Ondansetron 4 Mg Tab.Dis) 4 mg PO Q6H PRN PRN Reason: Nausea/Vomiting Last Admin: 05/12/21 22:30 Dose: 4 mg Documented by: Saccharomyces Boulardii (Saccharomyces Boulardii (Probiotic) 250 Mg Cap) 500 mg PO TID [facility] Last Admin: 05/12/21 21:21 Dose: 500 mg Documented by: Simvastatin (Simvastatin 40 Mg Tab) 40 mg PO BEDTIME [facility] Last Admin: 05/12/21 21:21 Dose: 40 mg Documented by: Warfarin Sodium (Pharmacy To Dose - Warfarin) 0 dose .XX ASDIRECTED [facility] Discontinued Medications Carvedilol (Carvedilol 6.25 Mg Tab) 6.25 mg PO BIDMEALS [facility] Last Admin: 05/11/21 08:12 Dose: 6.25 mg Documented by: Sodium Chloride (Normal Saline) 1,000 mls @ 200 mls/hr IV .BOLUS ONE Stop: 05/10/21 08:32 Last Infusion: 05/10/21 04:52 Dose: 250 mls/hr Documented by: Piperacillin Sod/Tazobactam (Sod 3.375 gm/ Sodium Chloride) 100 mls @ 200 mls/hr IV ONETIME ONE Stop: 05/10/21 05:17 Last Admin: 05/10/21 05:00 Dose: 200 mls/hr Documented by: Ciprofloxacin/Dextrose 400 mg/ (Premix) 200 mls @ 200 mls/hr IV Q18H [facility] Last Admin: 05/10/21 08:01 Dose: 200 mls/hr Documented by: Metronidazole 500 mg/ Premix 100 mls @ 100 mls/hr IV Q8H [facility] Last Admin: 05/11/21 08:04 Dose: Not Given Documented by: Ciprofloxacin/Dextrose 400 mg/ (Premix) 200 mls @ 200 mls/hr IV Q18H [facility] Last Admin: 05/11/21 22:58 Dose: 200 mls/hr Documented by: Phytonadione (Phytonadione 5 Mg Tab) 2.5 mg PO ONETIME ONE Stop: 05/10/21 05:47 Last Admin: 05/10/21 05:58 Dose: 2.5 mg Documented by: Warfarin Sodium (Warfarin 5 Mg Tab) 5 mg PO DAILY [facility] Last Admin: 05/13/21 10:33 Dose: Not Given Documented by: - Exam Physical Findings Comments:: General: Patient is a 75-year-old man in no acute distress Oropharynx is clear, mucous membranes are moist Heart: Regular rate and rhythm, 1 out of 6 systolic murmur Lungs: Clear to auscultation throughout Abdomen: Soft, much less tenderness to palpation, normal bowel sounds throughout - Patient Data Lab Results Last 24 hrs: Laboratory Results - last 24 hr 05/13/21 05/13/21 05/13/21 Range/Units 05:50 05:50 05:50 WBC 6.0 (5.0-10.0) 10^3/uL RBC 2.87 L (4.6-6.2) 10^6/uL Hgb 9.1 L (14.0-18.0) g/dL Hct 27.6 L (40.0-54.0) % MCV 96.2 (80-100) fL MCH 31.7 (27.0-34.0) pg MCHC 33.0 (33.0-35.0) g/dL Plt Count 169 (150-450) 10^3/uL Neut % (Auto) 72.6 (42.2-75.2) % Lymph % (Auto) 10.8 L (20.5-50.1) % [place] % (Auto) 13.4 H (2-8) % Eos % (Auto) 3.0 (1.0-3.0) % Baso % (Auto) 0.2 (0.0-1.0) % PT 48.1 H D (9.0-12.0) SEC INR 4.9 H (0.9-1.2) Sodium 142 (136-145) mmol/L Potassium 3.4 L (3.5-5.1) mmol/L Chloride 105 (98-107) mmol/L Carbon Dioxide 25 (21-32) mmol/L Anion Gap 15.4 H (7-13) mEq/L BUN 10 (7-18) mg/dL Creatinine 1.49 H (0.70-1.30) mg/dL Est Cr Clr Drug Dosing 38.82 mL/min Estimated GFR (MDRD) 46 BUN/Creatinine Ratio 6.7 (No establ ref range) Glucose 106 H (70-99) mg/dL Calcium 7.8 L (8.5-10.1) mg/dL Total Bilirubin 0.4 (0.2-1.0) mg/dL AST 31 (15-37) U/L ALT 16 (16-63) U/L Alkaline Phosphatase 67 (46-116) U/L Troponin I High Sens (<=76) pg/mL Total Protein 5.8 L (6.4-8.2) g/dL Albumin 2.1 L (3.4-5.0) g/dL Globulin 3.7 Albumin/Globulin Ratio 0.57 05/13/21 05/13/21 Range/Units 05:50 10:54 WBC (5.0-10.0) 10^3/uL RBC (4.6-6.2) 10^6/uL Hgb (14.0-18.0) g/dL Hct (40.0-54.0) % MCV (80-100) fL MCH (27.0-34.0) pg MCHC (33.0-35.0) g/dL Plt Count (150-450) 10^3/uL Neut % (Auto) (42.2-75.2) % Lymph % (Auto) (20.5-50.1) % [place] % (Auto) (2-8) % Eos % (Auto) (1.0-3.0) % Baso % (Auto) (0.0-1.0) % PT (9.0-12.0) SEC INR (0.9-1.2) Sodium (136-145) mmol/L Potassium (3.5-5.1) mmol/L Chloride (98-107) mmol/L Carbon Dioxide (21-32) mmol/L Anion Gap (7-13) mEq/L BUN (7-18) mg/dL Creatinine (0.70-1.30) mg/dL Est Cr Clr Drug Dosing mL/min Estimated GFR (MDRD) BUN/Creatinine Ratio (No establ ref range) Glucose (70-99) mg/dL Calcium (8.5-10.1) mg/dL Total Bilirubin (0.2-1.0) mg/dL AST (15-37) U/L ALT (16-63) U/L Alkaline Phosphatase (46-116) U/L Troponin I High Sens 11 11 (<=76) pg/mL Total Protein (6.4-8.2) g/dL Albumin (3.4-5.0) g/dL Globulin Albumin/Globulin Ratio Result Diagrams: 05/13/21 05:50 05/13/21 05:50 Patrick Results Last 24 hrs: Microbiology 05/10/21 03:30 Aerobic Blood Culture - Preliminary Blood - Venous NO GROWTH AFTER 3 DAYS Anaerobic Blood Culture - Preliminary NO GROWTH AFTER 3 DAYS Sepsis Event Note - Evaluation Sepsis Screening Result: No Definite Risk - Focused Exam Vital Signs: Vital Signs Temp Temp Pulse Pulse Resp BP BP 05/13/21 11:05 100.3 F 110 H 18 121/76 05/13/21 10:55 121/76 05/13/21 10:43 100.4 F 05/13/21 09:34 116 H 176/66 H 05/13/21 09:33 116 H 176/66 H 05/13/21 09:00 05/13/21 08:00 99.2 F 116 H 18 117/66 05/13/21 04:00 98.6 F 110 H 18 118/77 05/13/21 00:00 99.2 F 109 H 20 121/78 Pulse Ox Pulse Ox 05/13/21 11:05 96 05/13/21 10:55 05/13/21 10:43 05/13/21 09:34 05/13/21 09:33 05/13/21 09:00 96 05/13/21 08:00 93 L 05/13/21 04:00 96 05/13/21 00:00 95 - Problem List & Annotations (1) Colon cancer SNOMED Code(s): 974554430 Code(s): C18.9 - MALIGNANT NEOPLASM OF COLON, UNSPECIFIED Status: Chronic Priority: High Current Visit: Yes Qualifiers: Colon location: sigmoid Qualified Code(s): C18.7 - Malignant neoplasm of sigmoid colon (2) Diverticulitis SNOMED Code(s): 338668820 Code(s): K57.92 - DVTRCLI OF INTEST, PART UNSP, W/O PERF OR ABSCESS W/O BLEED Status: Acute Current Visit: Yes (3) Chronic a-fib SNOMED Code(s): 398674403 Code(s): I48.20 - CHRONIC ATRIAL FIBRILLATION, UNSPECIFIED Status: Chronic Priority: High Current Visit: Yes (4) Type 2 diabetes mellitus SNOMED Code(s): 84068733 Code(s): E11.9 - TYPE 2 DIABETES MELLITUS WITHOUT COMPLICATIONS Status: Chronic Priority: High Current Visit: Yes Qualifiers: Diabetes mellitus skilled nursing insulin use: without supervisor intermediates use Diabetes mellitus complication status: with kidney complications Diabetes mellitus complication detail: with chronic kidney disease Chronic kidney disease stage: unspecified stage Qualified Code(s): E11.22 - Type 2 diabetes mellitus with diabetic chronic kidney disease (5) Chronic kidney disease SNOMED Code(s): 395377390 Code(s): N18.9 - CHRONIC KIDNEY DISEASE, UNSPECIFIED Status: Chronic Current Visit: Yes (6) Long-term use of high-risk medication SNOMED Code(s): 833476885 Code(s): Z79.899 - OTHER EXPERIMENTAL TECHNICIAN (CURRENT) DRUG THERAPY Status: Chronic Current Visit: Yes Annotation/Comment:: Warfarin - Problem List Review Problem List Initiated/Reviewed/Updated: Yes - My Orders Last 24 Hours: My Active Orders 05/13/21 08:32 Consult to Occupational Therapy [OT Evaluation and Treatment] [CONS] Routine PT Evaluation and Treatment [CONS] Routine 05/13/21 09:00 Warfarin Pharmacy to Dose [Pharmacy to Dose - Warfarin] 0 dose .XX ASDIRECTED 05/13/21 10:38 Nitroglycerin [Nitrostat] 0.4 mg SL Q5M PRN 05/14/21 06:00 INR,PT,PROTHROMBIN TIME [COAG] DAILY 05/15/21 06:00 INR,PT,PROTHROMBIN TIME [COAG] DAILY 05/16/21 06:00 INR,PT,PROTHROMBIN TIME [COAG] DAILY 05/17/21 06:00 INR,PT,PROTHROMBIN TIME [COAG] DAILY 05/18/21 06:00 INR,PT,PROTHROMBIN TIME [COAG] DAILY 05/19/21 06:00 INR,PT,PROTHROMBIN TIME [COAG] DAILY 05/20/21 06:00 INR,PT,PROTHROMBIN TIME [COAG] DAILY - Plan Plan:: Assessment/Plan: 1. 75-year-old man with diverticulitis of the sigmoid colon -Ciprofloxacin 400 mg IV every 12 hours -Metronidazole, 500 mg IV every 8 hours -Continue bland/BRAT diet, continue Florastor probiotics 2. 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 Chronic atrial fibrillation -His heart rate has been trending upwards while here, it is now averaging around 100, so I will start some metoprolol succinate with him today. This will be helpful in anticipation of his surgery upcoming anyway, if we can get him better controlled on a steady dose. 4. Chronic anticoagulation with warfarin, secondary to #3 -INR 4.9 today, will have pharmacy dose him daily 5. Diabetes mellitus type 2, with renal complication of chronic kidney disease -Is on glimepiride at home, has not needed insulin at home. We do not know his recent A1c -We will not do sliding scale and bedside checks unless patient has concerns 6. Chronic kidney disease, unknown stage -Creatinine has improved markedly since admission, no further concerns 7. VTE prophylaxis: Is anticoagulated on Coumadin
[2021-05-13] MEDS: Escitalopram 10 MG Tab PO SCH (12:30)
[2021-05-13] MEDS: Saccharomyces Boulardii (Probiotic) 250 MG Cap PO SCH ×3 (12:30→21:51)
[2021-05-13] MEDS: Simvastatin 40 MG Tab PO SCH (21:51)
[2021-05-14] MEDS: Lactated Ringers 1,000 ML IV SCH ×2 (03:35→14:29)
[2021-05-14] MEDS: metroNIDAZOLE/Normal Saline 500 MG in Premix Bag 100 BAG IV SCH ×3 (08:56→23:36)
[2021-05-14] MEDS: Carvedilol 6.25 MG Tab PO SCH ×2 (09:01→18:36)
[2021-05-14] MEDS: Saccharomyces Boulardii (Probiotic) 250 MG Cap PO SCH ×3 (09:02→20:21)
[2021-05-14] MEDS: Allopurinol 100 MG Tab PO SCH (09:02)
[2021-05-14] MEDS: Digoxin 125 MCG Tab PO SCH (09:02)
[2021-05-14] MEDS: Glimepiride 2 MG Tab PO SCH (09:02)
[2021-05-14] MEDS: Escitalopram 10 MG Tab PO SCH (09:02)
[2021-05-14] MEDS: Furosemide 20 MG Tab PO SCH (09:02)
[2021-05-14] MEDS: Metoprolol Succinate 25 MG Tab.ER PO SCH (09:02)
[2021-05-14] MEDS: Ciprofloxacin in D5W 400 MG in Premix Bag 1 BAG IV SCH ×4 (11:09→22:20)
[2021-05-14] MEDS ORDERED: oxyCODONE 5 MG Tab PO PRN (12:09)
--- NOTE | 2021-05-14 12:17 | PCM.PN ---
- General Info Date of Service: 05/14/21 Admission Dx/Problem (Free Text): Admission Diagnosis/Problem Admission Diagnosis/Problem Diverticulitis Subjective Update: Jazmyn is doing a little better today. He reports he is still having some occasional loose stools. Nursing reports he had an episode of incontinent stool this morning. He is on dual antibiotic therapy for diverticulitis. continued small loose stools, no associated nausea, has been present for days. c/o abdominal bloating, no sob, no cp - Patient Data Vitals - Most Recent: Last Vital Signs Temp 98.4 F 05/14/21 07:39 Pulse 104 H 05/14/21 09:02 Resp 18 05/14/21 07:39 BP 121/76 05/14/21 09:02 Pulse Ox 92 L 05/14/21 09:00 Weight - Most Recent: 192 lb 6.4 oz I&O - Last 24 Hours: Intake & Output 05/13/21 05/14/21 05/14/21 22:59 06:59 14:59 Intake Total 120 120 Balance 120 120 Lab Results Last 24 Hours: Laboratory Results - last 24 hr 05/14/21 Range/Units 05:45 PT 61.4 H (9.0-12.0) SEC INR 6.3 H* (0.9-1.2) Patrick Results Last 24 Hours: Microbiology 05/10/21 03:30 Aerobic Blood Culture - Preliminary Blood - Venous NO GROWTH AFTER 4 DAYS Anaerobic Blood Culture - Preliminary NO GROWTH AFTER 4 DAYS Med Orders - Current: Current Medications Acetaminophen (Acetaminophen 325 Mg Tab) 650 mg PO Q6H PRN PRN Reason: Pain/Fever Last Admin: 05/13/21 21:51 Dose: 650 mg Documented by: Allopurinol (Allopurinol 100 Mg Tab) 100 mg PO DAILY [facility]PLACED BY [facility] Last Admin: 05/14/21 09:02 Dose: 100 mg Documented by: Carvedilol (Carvedilol 6.25 Mg Tab) 12.5 mg PO BIDMEALS REPLACED BY [facility] Last Admin: 05/14/21 09:01 Dose: 12.5 mg Documented by: Digoxin (Digoxin 125 Mcg Tab) 125 mcg PO DAILY@0800 [facility]PL[facility]ED [facility] Last Admin: 05/14/21 09:02 Dose: 125 mcg Documented by: Escitalopram Oxalate (Escitalopram 10 Mg Tab) 10 mg PO DAILY [facility]PL[facility] Last Admin: 05/14/21 09:02 Dose: 10 mg Documented by: Furosemide (Furosemide 20 Mg Tab) 20 mg PO DAILY [facility] Last Admin: 05/14/21 09:02 Dose: 20 mg Documented by: Glimepiride (Glimepiride 2 Mg Tab) 4 mg PO DAILY [facility] Last Admin: 05/14/21 09:02 Dose: 4 mg Documented by: Hydromorphone HCl (Hydromorphone 0.5 Mg/0.5 Ml Syringe) 0.5 mg IVPUSH Q1H PRN PRN Reason: Pain (severe 7-10) Last Admin: 05/13/21 22:36 Dose: 0.5 mg Documented by: Lactated Ringer's (Ringers, Lactated) 1,000 mls @ 125 mls/hr IV ASDIRECTED [facility]PL[facility]ED [facility] Last Admin: 05/14/21 03:35 Dose: 125 mls/hr Documented by: Metronidazole 500 mg/ Premix 100 mls @ 100 mls/hr IV Q8H [facility]PL[facility] Last Admin: 05/14/21 08:56 Dose: 100 mls/hr Documented by: Ciprofloxacin/Dextrose 400 mg/ (Premix) 200 mls @ 200 mls/hr IV Q12H [facility] Last Admin: 05/14/21 11:09 Dose: 200 mls/hr Documented by: Influenza Virus Vaccine (Pharmacy To Dose - Influenza Vaccine) 1 each IM DAILY [facility] Last Admin: 05/13/21 10:39 Dose: Not Given Documented by: Losartan Potassium (Losartan 25 Mg Tab) 25 mg PO Q48H [facility]PL[facility]ED [facility] Last Admin: 05/13/21 09:33 Dose: 25 mg Documented by: Metoprolol Succinate (Metoprolol Succinate 25 Mg Tab.Er) 25 mg PO DAILY [facility] Last Admin: 05/14/21 09:02 Dose: 25 mg Documented by: Nitroglycerin (Nitroglycerin 0.4 Mg Tab.Sl) 0.4 mg SL Q5M PRN PRN Reason: Chest Pain Last Admin: 05/13/21 10:55 Dose: 0.4 mg Documented by: Ondansetron HCl (Ondansetron 4 Mg Tab.Dis) 4 mg PO Q6H PRN PRN Reason: Nausea/Vomiting Last Admin: 05/12/21 22:30 Dose: 4 mg Documented by: Oxycodone HCl (Oxycodone 5 Mg Tab) 5 mg PO Q6H PRN PRN Reason: Pain (moderate 4-6) Saccharomyces Boulardii (Saccharomyces Boulardii (Probiotic) 250 Mg Cap) 500 mg PO TID REPLACED BY [facility] Last Admin: 05/14/21 09:02 Dose: 500 mg Documented by: Simvastatin (Simvastatin 40 Mg Tab) 40 mg PO BEDTIME REPLACED [facility] Last Admin: 05/13/21 21:51 Dose: 40 mg Documented by: Warfarin Sodium (Pharmacy To Dose - Warfarin) 0 dose .XX ASDIRECTED REPLACED BY [facility] Discontinued Medications Carvedilol (Carvedilol 6.25 Mg Tab) 6.25 mg PO BIDMEALS REPLACED BY [facility] Last Admin: 05/11/21 08:12 Dose: 6.25 mg Documented by: Sodium Chloride (Normal Saline) 1,000 mls @ 200 mls/hr IV .BOLUS ONE Stop: 05/10/21 08:32 Last Infusion: 05/10/21 04:52 Dose: 250 mls/hr Documented by: Piperacillin Sod/Tazobactam (Sod 3.375 gm/ Sodium Chloride) 100 mls @ 200 mls/hr IV ONETIME ONE Stop: 05/10/21 05:17 Last Admin: 05/10/21 05:00 Dose: 200 mls/hr Documented by: Ciprofloxacin/Dextrose 400 mg/ (Premix) 200 mls @ 200 mls/hr IV Q18H REPLACED [facility] Last Admin: 05/10/21 08:01 Dose: 200 mls/hr Documented by: Metronidazole 500 mg/ Premix 100 mls @ 100 mls/hr IV Q8H REPLACED [facility] Last Admin: 05/11/21 08:04 Dose: Not Given Documented by: Ciprofloxacin/Dextrose 400 mg/ (Premix) 200 mls @ 200 mls/hr IV Q18H REPLACED [facility] Last Admin: 05/11/21 22:58 Dose: 200 mls/hr Documented by: No Warfarin Today 0 each .XX ONETIME ONE Stop: 05/13/21 14:01 Last Admin: 05/13/21 14:17 Dose: Not Given Documented by: Phytonadione (Phytonadione 5 Mg Tab) 2.5 mg PO ONETIME ONE Stop: 05/10/21 05:47 Last Admin: 05/10/21 05:58 Dose: 2.5 mg Documented by: Warfarin Sodium (Warfarin 5 Mg Tab) 5 mg PO DAILY REPLACED BY [facility] Last Admin: 05/13/21 10:33 Dose: Not Given Documented by: - Exam General: Alert, Oriented Neck: Supple Lungs: Clear to Auscultation, Normal Respiratory Effort Cardiovascular: Irregular Rhythm. No: Tachycardia GI/Abdominal Exam: Normal Bowel Sounds, Distended, Tender (with palpation and percussion) Extremities: Pedal Edema Skin: Warm, Dry Psy/Mental Status: Alert, Normal Affect, Normal Mood - Patient Data Lab Results Last 24 hrs: Laboratory Results - last 24 hr 05/14/21 Range/Units 05:45 PT 61.4 H (9.0-12.0) SEC INR 6.3 H* (0.9-1.2) Result Diagrams: 05/13/21 05:50 05/13/21 05:50 Patrick Results Last 24 hrs: Microbiology 05/10/21 03:30 Aerobic Blood Culture - Preliminary Blood - Venous NO GROWTH AFTER 4 DAYS Anaerobic Blood Culture - Preliminary NO GROWTH AFTER 4 DAYS Sepsis Event Note - Evaluation Sepsis Screening Result: No Definite Risk - Focused Exam Vital Signs: Vital Signs Temp Pulse Pulse Resp BP BP Pulse Ox 05/14/21 09:02 104 H 121/76 05/14/21 09:01 104 H 121/76 05/14/21 09:00 05/14/21 07:39 98.4 F 104 H 18 121/76 92 L 05/14/21 04:00 98.1 F 96 16 116/65 96 Pulse Ox 05/14/21 09:02 05/14/21 09:01 05/14/21 09:00 92 L 05/14/21 07:39 05/14/21 04:00 - Problem List & Annotations (1) Diverticulitis SNOMED Code(s): 479612004 Code(s): K57.92 - DVTRCLI OF INTEST, PART UNSP, W/O PERF OR ABSCESS W/O BLEED Status: Acute Current Visit: Yes (2) Chronic a-fib SNOMED Code(s): 421206660 Code(s): I48.20 - CHRONIC ATRIAL FIBRILLATION, UNSPECIFIED Status: Chronic Priority: High Current Visit: Yes (3) Type 2 diabetes mellitus SNOMED Code(s): 58281854 Code(s): E11.9 - TYPE 2 DIABETES MELLITUS WITHOUT COMPLICATIONS Status: Chronic Priority: High Current Visit: Yes Qualifiers: Diabetes mellitus assisted insulin use: without assisted use Diabetes mellitus complication status: with kidney complications Diabetes mellitus complication detail: with chronic kidney disease Chronic kidney disease stage: unspecified stage Qualified Code(s): E11.22 - Type 2 diabetes mellitus with diabetic chronic kidney disease (4) Elevated INR SNOMED Code(s): 569487630 Code(s): R79.1 - ABNORMAL COAGULATION PROFILE Status: Acute Current Visit: No - Problem List Review Problem List Initiated/Reviewed/Updated: Yes - My Orders Last 24 Hours: My Active Orders 05/14/21 12:08 Abdomen Pelvis w Cont [CT] Routine 05/14/21 12:09 oxyCODONE 5 mg PO Q6H PRN 05/15/21 05:15 BASIC METABOLIC PANEL,BMP [CHEM] AM CBC WITH AUTO DIFF [HEME] AM - Plan Plan:: Assessment/Plan: 1. 75-year-old man with h/o colon ca with recent chemotherapy presented with abdominal pain CT showed diverticulitis of the sigmoid colon treated with Ciprofloxacin, Metronidazole has abd distention, pain on palpation will repeat CT abd clear liquid diet add PO pain med, oxycodone for mod pain 2. dyslipidemia hold statin while on limited diet 3. Chronic atrial fibrillation rate control with metoprolol Chronic anticoagulation with warfarin check INR daily adjust coumadin daily for target INR 2-3 5. Diabetes mellitus type 2, with renal complication of chronic kidney disease -Is on glimepiride at home -We will not do sliding scale and bedside checks unless patient has concerns 6. Chronic kidney disease, unknown stage GLENN POA Creatinine has improved markedly since admission cont low dose losartan 7. VTE prophylaxis: full dose anticoagulation with Coumadin d/w dr. Love
[2021-05-14] MEDS ORDERED: Iopamidol 612 MG/ML 100 ML Bottle IVPUSH ONE (12:25)
--- NOTE | 2021-05-14 13:25 | CT ---
PROCEDURE INFORMATION: Exam: CT Abdomen And Pelvis With Contrast Exam date and time: 05/14/2021 12:41 PM Age: 75 years old Clinical indication: Abdominal pain; Additional info: Abdominal distentiona, pain recent colon CA chemo TECHNIQUE: Imaging protocol: Computed tomography of the abdomen and pelvis with contrast. Radiation optimization: All CT scans at this facility use at least one of these dose optimization techniques: automated exposure control; mA and/or kV adjustment per patient size (includes targeted exams where dose is matched to clinical indication); or iterative reconstruction. Contrast material: ISOVUE; Contrast volume: 100 ml; Contrast route: INTRAVENOUS (IV); COMPARISON: CT Abdomen Pelvis wo Cont 05/10/2021 4:40 AM FINDINGS: Lungs: Calcified granuloma left lung base. New interstitial infiltrates in the lung bases. Pleural spaces: New small bilateral pleural effusions. Heart: Cardiomegaly. Liver: Normal. No mass. Gallbladder and bile ducts: Cholecystectomy. Pancreas: Normal. No ductal dilation. Spleen: Normal. No splenomegaly. Adrenal glands: Normal. No mass. Kidneys and ureters: Small benign renal cysts. Stomach and bowel: Acute diverticulitis of the segment of colon at the junction of the descending colon and sigmoid colon. The length of colon measures approximately 13 cm in length and is in the same location as the CT of 05/10/2021. Interval increase in the surrounding edema about this segment of colon. No focal abscess is identified. Thickening of the wall of the gastric antrum could be due to gastritis. This is better demonstrated on today's CT likely due to the addition of intravenous contrast. Appendix: No evidence of appendicitis. Intraperitoneal space: New small amount of free fluid in the pelvis. Progression of mesenteric edema. Vasculature: Vascular calcifications. No abdominal aortic aneurysm. Lymph nodes: Unremarkable. No enlarged lymph nodes. Urinary bladder: Stable diffuse thickening of the wall the urinary bladder could be due to chronic inflammation. Reproductive: Prostate enlargement. 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 Soft tissues: Fat containing bilateral inguinal hernias, larger on the left. IMPRESSION: 1. Progression of pericolonic edema about the segment of low descending and upper sigmoid colon affected by acute diverticulitis when compared with 05/10/2021 but no free air nor abscess identified and no evidence of obstruction 2. Edema and wall thickening in the gastric antrum suspicious for gastritis 3. New small bilateral pleural effusions and infiltrates in the lung bases 4. New small amount of free fluid in the pelvis 5. Other stable incidental findings as described COMMENTS: Consistent with the [employer]'s Incidental Findings Committee white paper (J Am Clarissa Radiol 2018): Any incidental renal lesion less than 1 cm or classified as too small to characterize, or any incidental cystic renal lesion characterized as simple-appearing, is likely benign. No follow-up imaging is recommended for these lesions per consensus recommendations based on imaging criteria.
[2021-05-14] MEDS: Ondansetron 4 MG Tab.DIS PO PRN (16:25)
[2021-05-14] MEDS: Pantoprazole 40 MG Tab.CR PO SCH (18:36)
[2021-05-15] MEDS: Pantoprazole 40 MG Tab.CR PO SCH (05:28)
[2021-05-15 07:20] LABS: ANION GAP 12.4 mEq/L (7-13)
[2021-05-15] MEDS: metroNIDAZOLE/Normal Saline 500 MG in Premix Bag 100 BAG IV SCH (08:06)
[2021-05-15] MEDS: Saccharomyces Boulardii (Probiotic) 250 MG Cap PO SCH ×2 (09:08→14:42)
[2021-05-15] MEDS: Glimepiride 2 MG Tab PO SCH (09:08)
[2021-05-15] MEDS: Losartan 25 MG Tab PO SCH (09:08)
[2021-05-15] MEDS: Allopurinol 100 MG Tab PO SCH (09:10)
[2021-05-15] MEDS: Furosemide 20 MG Tab PO SCH (09:11)
[2021-05-15] MEDS: Carvedilol 6.25 MG Tab PO SCH (09:11)
[2021-05-15] MEDS: Metoprolol Succinate 25 MG Tab.ER PO SCH (09:11)
[2021-05-15] MEDS: Escitalopram 10 MG Tab PO SCH (09:11)
[2021-05-15] MEDS: Digoxin 125 MCG Tab PO SCH (09:12)
[2021-05-15] MEDS ORDERED: Phytonadione 5 MG Tab PO ONE (10:03)
[2021-05-15] MEDS ORDERED: Potassium Chloride 10 MEQ Tab.ER PO ONE (10:03)
[2021-05-15] MEDS: Ciprofloxacin in D5W 400 MG in Premix Bag 1 BAG IV SCH ×2 (10:52)
[2021-05-15] MEDS ORDERED: FLU Vacc QS2021(65UP)/MF59C/PF 60 MCG/0.5 ML Syringe IM ONE ×2 (12:15→15:00)
--- NOTE | 2021-05-17 09:34 | PCM.DCSUM1 ---
Discharge Summary - Hospital Course Free Text/Narrative:: 1. 75-year-old man with h/o colon ca with recent chemotherapy presented with abdominal pain CT showed diverticulitis of the sigmoid colon treated with Ciprofloxacin, Metronidazole abd distention and pain on palpation has improved will discharge home f/up with pMD na doncology 2. dyslipidemia resume statin 3. Chronic atrial fibrillation rate control with metoprolol Chronic anticoagulation with warfarin 5. Diabetes mellitus type 2, with renal complication of chronic kidney disease resume glimepiride 6. Chronic kidney disease, unknown stage GLENN POA Creatinine has improved markedly since admission cont low dose losartan Diagnosis: Stroke: No - Discharge Data Discharge Date: 05/15/21 Discharge Disposition: Home, Self-Care 01 Condition: Stable - Referral to Home Health Primary Care Physician: PCP None - Discharge Diagnosis/Problem(s) (1) Diverticulitis SNOMED Code(s): 924449495 ICD Code: K57.92 - DVTRCLI OF INTEST, PART UNSP, W/O PERF OR ABSCESS W/O BLEED Status: Acute (2) Chronic a-fib SNOMED Code(s): 586279400 ICD Code: I48.20 - CHRONIC ATRIAL FIBRILLATION, UNSPECIFIED Status: Chronic Priority: High (3) Type 2 diabetes mellitus SNOMED Code(s): 48887797 ICD Code: E11.9 - TYPE 2 DIABETES MELLITUS WITHOUT COMPLICATIONS Status: Chronic Priority: High Qualifiers: Diabetes mellitus group home insulin use: without long goods drier use Diabetes mellitus complication status: with kidney complications Diabetes mellitus complication detail: with chronic kidney disease Chronic kidney disease stage: unspecified stage Qualified Code(s): E11.22 - Type 2 diabetes mellitus with diabetic chronic kidney disease (4) Elevated INR SNOMED Code(s): 221369886 ICD Code: R79.1 - ABNORMAL COAGULATION PROFILE Status: Acute - Patient Summary/Data Consults: Consultations 05/13/21 08:32 Consult to Occupational Therapy [OT Evaluation and Treatment] [CONS] Routine PT Evaluation and Treatment [CONS] Routine - Patient Instructions Diet: Heart Healthy Diet Activity: As Tolerated - Discharge Plan *PRESCRIPTION DRUG MONITORING PROGRAM REVIEWED*: No *COPY OF PRESCRIPTION DRUG MONITORING REPORT IN PATIENT SUSANNA: No Prescriptions/Med Rec: Ciprofloxacin [Ciprofloxacin HCl] 500 mg PO BID #14 tab metroNIDAZOLE [Flagyl] 500 mg PO Q8H #21 tab Saccharomyces Boulardii [Florastor] 500 mg PO TID #30 cap oxyCODONE 5 mg PO Q6H PRN #12 tablet PRN Reason: Pain (Moderate 4-6) Potassium Chloride 20 meq PO DAILY #30 tablet.er Pantoprazole [ProTONIX] 40 mg PO DAILY #14 tab.cr Metoprolol Succinate [Toprol XL] 25 mg PO DAILY #30 tab.er Home Medications: Home Meds Digoxin 125 mcg PO DAILY 06/30/17 [History] Furosemide 20 mg PO DAILY 06/30/17 [History] Glimepiride [Amaryl] 8 mg PO ACBREAKFAST 06/30/17 [History] Capecitabine [Xeloda] 0 mg PO ASDIRECTED 05/10/21 [History] Losartan [Cozaar] 25 mg PO Q48H 05/10/21 [History] Simvastatin 40 mg PO BEDTIME 05/10/21 [History] allopurinoL [Zyloprim] 100 mg PO DAILY 05/10/21 [History] carvediloL [Carvedilol] 12.5 mg PO BID 05/10/21 [History] Acetaminophen [Tylenol] 650 mg PO Q6H PRN tablet 05/15/21 [Rx] Ciprofloxacin [Ciprofloxacin HCl] 500 mg PO BID #14 tab 05/15/21 [Rx] Metoprolol Succinate [Toprol XL] 25 mg PO DAILY #30 tab.er 05/15/21 [Rx] Pantoprazole [ProTONIX] 40 mg PO DAILY #14 tab.cr 05/15/21 [Rx] Potassium Chloride 20 meq PO DAILY #30 tablet.er 05/15/21 [Rx] Saccharomyces Boulardii [Florastor] 500 mg PO TID #30 cap 05/15/21 [Rx] metroNIDAZOLE [Flagyl] 500 mg PO Q8H #21 tab 05/15/21 [Rx] oxyCODONE 5 mg PO Q6H PRN #12 tablet 05/15/21 [Rx] Patient Handouts: Metoprolol Extended-Release Tablets, Diverticulitis, Znil-tq-Bwon, Oxycodone tablets or capsules, Potassium Chloride Extended-Release Wax Matrix Oral Tablets, Pantoprazole tablets, Ciprofloxacin tablets, Metronidazole tablets or capsules, [employer] Diet Referrals: Mckenzie Hugo NP [Ordering Only Provider] - (in 2-3 days, hold coumadin until appt and check INR) - Discharge Summary/Plan Comment DC Time >30 min.: No Total # of Minutes for Discharge Time: 20 min - General Info Date of Service: 05/15/21 Functional Status: Reports: Pain Controlled, Tolerating Diet, Ambulating - Review of Systems Pulmonary: Denies: Shortness of Breath Cardiovascular: Denies: Chest Pain Gastrointestinal: Denies: Abdominal Pain Genitourinary: Denies: Dysuria - Patient Data Vitals - Most Recent: Last Vital Signs Temp 97.0 F 05/15/21 11:43 Pulse 108 H 05/15/21 11:43 Resp 18 05/15/21 11:43 BP 116/65 05/15/21 11:43 Pulse Ox 92 L 05/15/21 11:43 Weight - Most Recent: 192 lb 6.4 oz Med Orders - Current: Current Medications Discontinued Medications Acetaminophen (Acetaminophen 325 Mg Tab) 650 mg PO Q6H PRN PRN Reason: Pain/Fever Last Admin: 05/13/21 21:51 Dose: 650 mg Documented by: Allopurinol (Allopurinol 100 Mg Tab) 100 mg PO DAILY [facility] Last Admin: 05/15/21 09:10 Dose: 100 mg Documented by: Carvedilol (Carvedilol 6.25 Mg Tab) 6.25 mg PO BIDMEALS [facility] Last Admin: 05/11/21 08:12 Dose: 6.25 mg Documented by: Carvedilol (Carvedilol 6.25 Mg Tab) 12.5 mg PO BIDMEALS [facility] Last Admin: 05/15/21 09:11 Dose: 12.5 mg Documented by: Digoxin (Digoxin 125 Mcg Tab) 125 mcg PO DAILY@0800 [facility] Last Admin: 05/15/21 09:12 Dose: 125 mcg Documented by: Escitalopram Oxalate (Escitalopram 10 Mg Tab) 10 mg PO DAILY [facility] Last Admin: 05/15/21 09:11 Dose: 10 mg Documented by: Furosemide (Furosemide 20 Mg Tab) 20 mg PO DAILY [facility] Last Admin: 05/15/21 09:11 Dose: 20 mg Documented by: Glimepiride (Glimepiride 2 Mg Tab) 4 mg PO DAILY [facility] Last Admin: 05/15/21 09:08 Dose: 4 mg Documented by: Hydromorphone HCl (Hydromorphone 0.5 Mg/0.5 Ml Syringe) 0.5 mg IVPUSH Q1H PRN PRN Reason: Pain (severe 7-10) Last Admin: 05/13/21 22:36 Dose: 0.5 mg Documented by: Sodium Chloride (Normal Saline) 1,000 mls @ 200 mls/hr IV .BOLUS ONE Stop: 05/10/21 08:32 Last Infusion: 05/10/21 04:52 Dose: 250 mls/hr Documented by: Piperacillin Sod/Tazobactam (Sod 3.375 gm/ Sodium Chloride) 100 mls @ 200 mls/hr IV ONETIME ONE Stop: 05/10/21 05:17 Last Admin: 05/10/21 05:00 Dose: 200 mls/hr Documented by: Lactated Ringer's (Ringers, Lactated) 1,000 mls @ 125 mls/hr IV ASDIRECTED [facility] Last Admin: 05/14/21 14:29 Dose: 125 mls/hr Documented by: Ciprofloxacin/Dextrose 400 mg/ (Premix) 200 mls @ 200 mls/hr IV Q18H [facility] Last Admin: 05/10/21 08:01 Dose: 200 mls/hr Documented by: Metronidazole 500 mg/ Premix 100 mls @ 100 mls/hr IV Q8H [facility] Last Admin: 05/11/21 08:04 Dose: Not Given Documented by: Ciprofloxacin/Dextrose 400 mg/ (Premix) 200 mls @ 200 mls/hr IV Q18H [facility] Last Admin: 05/11/21 22:58 Dose: 200 mls/hr Documented by: Metronidazole 500 mg/ Premix 100 mls @ 100 mls/hr IV Q8H [facility] Last Infusion: 05/15/21 10:25 Dose: Infused Documented by: Ciprofloxacin/Dextrose 400 mg/ (Premix) 200 mls @ 200 mls/hr IV Q12H [facility] Last Admin: 05/15/21 10:52 Dose: 200 mls/hr Documented by: Influenza Virus Vaccine (Pharmacy To Dose - Influenza Vaccine) 1 each IM DAILY [facility] Last Admin: 05/15/21 15:42 Dose: Not Given Documented by: Influenza Virus Vaccine (Flu Vacc [id number](65up)/Mf59c/Pf 60 Mcg/0.5 Ml Syringe) 60 mcg IM .ONCE ONE Stop: 05/15/21 15:01 Last Admin: 05/15/21 14:50 Dose: 60 mcg Documented by: Iopamidol (Iopamidol 612 Mg/Ml 100 Ml Bottle) 100 ml IVPUSH ONETIME ONE Stop: 05/14/21 12:26 Last Admin: 05/14/21 12:54 Dose: 100 ml Documented by: Losartan Potassium (Losartan 25 Mg Tab) 25 mg PO Q48H [facility] Last Admin: 05/15/21 09:08 Dose: 25 mg Documented by: Metoprolol Succinate (Metoprolol Succinate 25 Mg Tab.Er) 25 mg PO DAILY [facility] Last Admin: 05/15/21 09:11 Dose: 25 mg Documented by: Nitroglycerin (Nitroglycerin 0.4 Mg Tab.Sl) 0.4 mg SL Q5M PRN PRN Reason: Chest Pain Last Admin: 05/13/21 10:55 Dose: 0.4 mg Documented by: No Warfarin Today 0 each .XX ONETIME ONE Stop: 05/13/21 14:01 Last Admin: 05/13/21 14:17 Dose: Not Given Documented by: Ondansetron HCl (Ondansetron 4 Mg Tab.Dis) 4 mg PO Q6H PRN PRN Reason: Nausea/Vomiting Last Admin: 05/14/21 16:25 Dose: 4 mg Documented by: Oxycodone HCl (Oxycodone 5 Mg Tab) 5 mg PO Q6H PRN PRN Reason: Pain (moderate 4-6) Last Admin: 05/14/21 23:34 Dose: 5 mg Documented by: Pantoprazole Sodium (Pantoprazole 40 Mg Tab.Cr) 40 mg PO BIDAC [facility] Last Admin: 05/15/21 05:28 Dose: 40 mg Documented by: Phytonadione (Phytonadione 5 Mg Tab) 2.5 mg PO ONETIME ONE Stop: 05/10/21 05:47 Last Admin: 05/10/21 05:58 Dose: 2.5 mg Documented by: Phytonadione (Phytonadione 5 Mg Tab) 5 mg PO ONETIME ONE Stop: 05/15/21 10:04 Last Admin: 05/15/21 10:50 Dose: 5 mg Documented by: Potassium Chloride (Potassium Chloride 10 Meq Tab.Er) 40 meq PO ONETIME ONE Stop: 05/15/21 10:04 Last Admin: 05/15/21 10:50 Dose: 40 meq Documented by: Saccharomyces Boulardii (Saccharomyces Boulardii (Probiotic) 250 Mg Cap) 500 mg PO TID [facility] Last Admin: 05/15/21 14:42 Dose: 500 mg Documented by: Simvastatin (Simvastatin 40 Mg Tab) 40 mg PO BEDTIME [facility] Last Admin: 05/13/21 21:51 Dose: 40 mg Documented by: Warfarin Sodium (Warfarin 5 Mg Tab) 5 mg PO DAILY [facility] Last Admin: 05/13/21 10:33 Dose: Not Given Documented by: Warfarin Sodium (Pharmacy To Dose - Warfarin) 0 dose .XX ASDIRECTED [facility] - Exam General: Reports: Alert, Oriented Neck: Reports: Supple Lungs: Reports: Clear to Auscultation, Normal Respiratory Effort Cardiovascular: Reports: Irregular Rhythm GI/Abdominal Exam: Normal Bowel Sounds, Soft, Non-Tender Extremities: No Pedal Edema *Q Meaningful Use (DIS) - VTE *Q VTE Pharmacological Contraindications *Q: High INR Value
== END 2021-05-15 15:00 | disposition home or self-care (01) | DRG 392 ==
LOC: DL.ED 02:54 → DL.MS 06:17
PROVIDERS: ADMIT Family Medicine; ATTEND Internal Medicine
DX: K57.92 Diverticulitis of intestine, part unspecified, without perforation or abscess without bleeding (principal); I48.0 Paroxysmal atrial fibrillation; C18.9 Malignant neoplasm of colon, unspecified; K57.32 Diverticulitis of large intestine without perforation or abscess without bleeding; I48.20 Chronic atrial fibrillation, unspecified; N17.9 Acute kidney failure, unspecified; C18.7 Malignant neoplasm of sigmoid colon; I13.0 Hypertensive heart and chronic kidney disease with heart failure and stage 1 through stage 4 chronic kidney disease, or unspecified chronic kidney disease; E78.5 Hyperlipidemia, unspecified; N18.9 Chronic kidney disease, unspecified; E11.22 Type 2 diabetes mellitus with diabetic chronic kidney disease; R79.1 Abnormal coagulation profile; Z20.822 Contact with and (suspected) exposure to COVID-19; H91.90 Unspecified hearing loss, unspecified ear; H54.7 Unspecified visual loss; I25.10 Atherosclerotic heart disease of native coronary artery without angina pectoris; E78.00 Pure hypercholesterolemia, unspecified; H91.93 Unspecified hearing loss, bilateral; I50.9 Heart failure, unspecified; M10.9 Gout, unspecified; E66.9 Obesity, unspecified; Z98.890 Other specified postprocedural states; Z92.21 Personal history of antineoplastic chemotherapy; Z88.1 Allergy status to other antibiotic agents; Z88.8 Allergy status to other drugs, medicaments and biological substances; Z79.01 Long term (current) use of anticoagulants; Z90.49 Acquired absence of other specified parts of digestive tract; Z23 Encounter for immunization; Z79.84 Long term (current) use of oral hypoglycemic drugs; Z79.899 Other long term (current) drug therapy; Z68.30 Body mass index [BMI] 30.0-30.9, adult
CPT/HCPCS: 0240U; 36415; 70450; 74176; 74177; 80048; 80053; 80162; 81001; 82150; 82272; 82947; 83605; 83690; 83735; 84484; 85025; 85610; 87040; 90694; 93005; 96365; 97162; 97165; 99285; A9270-GY; G0008; J0744; J1170; J2543; J3490; J7030; J7120; Q9967

== ENCOUNTER 2021-07-10 18:59 | Inpatient (IN) | payer MEDICARE, OTHER ==
--- NOTE | 2021-07-10 19:03 | EDM.PDOC ---
ED HPI GENERAL MEDICAL PROBLEM - General Stated Complaint: AMBULANCE Time Seen by Provider: 07/10/21 19:00 Source of Information: Reports: Patient, EMS History Limitations: Reports: No Limitations - History of Present Illness INITIAL COMMENTS - FREE TEXT/NARRATIVE: ED via [facility] with c/o increased weakness. Has been declining since colon resection for cancer early June. Possible exposure to flu yesterday. Chills today. No chest pain, no change in pain. Output normal from colostomy. No reported vomiting. No reported falls. No family immediately available. Patient responses slow. arrives, decreased appetite today. low grade temp started today. - Related Data Allergies Allergy/AdvReac Type Severity Reaction Status Date / Time azithromycin [From Zithromax] Allergy rash/hives Verified 07/10/21 23:17 lisinopril AdvReac Cough Verified 07/10/21 23:17 Home Meds: Home Meds Digoxin 187.5 mcg PO DAILY 06/30/17 [History] Furosemide 20 mg PO DAILY 06/30/17 [History] Glimepiride [Amaryl] 4 mg PO ACBREAKFAST 06/30/17 [History] Losartan [Cozaar] 25 mg PO Q48H 05/10/21 [History] Simvastatin 40 mg PO BEDTIME 05/10/21 [History] allopurinoL [Zyloprim] 100 mg PO DAILY 05/10/21 [History] carvediloL [Carvedilol] 12.5 mg PO BID 05/10/21 [History] Acetaminophen [Tylenol] 650 mg PO Q6H PRN tablet 05/15/21 [Rx] Cholecalciferol (Vitamin D3) [Vitamin D3] 1,000 units PO DAILY 07/10/21 [History] Cyanocobalamin (Vitamin B-12) [B-12] 500 mcg PO DAILY 07/10/21 [History] Ferrous Gluconate 324 mg PO DAILY 07/10/21 [History] Lactobacillus Acidophilus [Acidophilus] 1 tab PO BID 07/10/21 [History] Ondansetron [Zofran Odt] 8 mg BUCCAL Q8H PRN 07/10/21 [History] Tamsulosin [Flomax] 0.4 mg PO DAILY 07/10/21 [History] Warfarin Sodium [Jantoven] 5 mg PO DAILY 07/10/21 [History] oxyCODONE 5 mg PO Q4H PRN 07/10/21 [History] Past Medical History HEENT History: Reports: Hard of Hearing, Impaired Vision, Macular Degeneration Other HEENT History: wears glasses and wears hearing aides. Cardiovascular History: Reports: Afib, CAD, Heart Failure, High Cholesterol, Hypertension Respiratory History: Reports: Bronchitis, Recurrent Gastrointestinal History: Reports: Diverticulosis Genitourinary History: Reports: Chronic Renal Insuffiency Musculoskeletal History: Reports: Gout, Other (See Below) Other Musculoskeletal History: Knee pain, uses a lift chair Neurological History: Reports: None Psychiatric History: Reports: None Endocrine/Metabolic History: Reports: Diabetes, Type II, Obesity/BMI 30+ Hematologic History: Reports: None Immunologic History: Reports: None Oncologic (Cancer) History: Reports: Colon Dermatologic History: Reports: None - Infectious Disease History Infectious Disease History: Reports: Chicken Pox, Measles, Mumps - Past Surgical History Head Surgeries/Procedures: Reports: None HEENT Surgical History: Reports: Cataract Surgery, Tonsillectomy Cardiovascular Surgical History: Reports: Other (See Below) Other Cardiovascular Surgeries/Procedures: angiogram Respiratory Surgical History: Reports: None GI Surgical History: Reports: Appendectomy, Cholecystectomy, Colonoscopy, EGD, Hernia Repair/Other Male Surgical History: Reports: None Neurological Surgical History: Reports: None Musculoskeletal Surgical History: Reports: Shoulder Surgery, Other (See Below) Other Musculoskeletal Surgeries/Procedures:: rotory cuff surgery Oncologic Surgical History: Reports: None Dermatological Surgical History: Reports: None Social & Family History - Family History Family Medical History: No Pertinent Family History - Caffeine Use Caffeine Use: Reports: Coffee Other Caffeine Use: COFFEE 2-3 CUPS DAILY IN THE AM ED ROS GENERAL - Review of Systems Review Of Systems: See Below Constitutional: Reports: Fever, Malaise, Weakness, Decreased Appetite, Weight Loss HEENT: Reports: No Symptoms Respiratory: Reports: No Symptoms Cardiovascular: Reports: No Symptoms Endocrine: Reports: No Symptoms GI/Abdominal: Reports: Decreased Appetite. Denies: Abdominal Pain : Reports: No Symptoms Musculoskeletal: Reports: No Symptoms Skin: Reports: No Symptoms Neurological: Reports: Confusion, Weakness (general). Denies: Trouble Speaking ED EXAM, GENERAL - Physical Exam Exam: See Below Exam Limited By: No Limitations General Appearance: Alert, Mild Distress Eye Exam: Bilateral Eye: Conjunctival Injection, EOMI, PERRL Ears: Normal External Exam, Hearing Loss Nose: Normal Inspection Throat/Mouth: Normal Inspection Head: Atraumatic, Normocephalic Neck: Normal Inspection Respiratory/Chest: No Respiratory Distress, Decreased Breath Sounds. No: Crackles, Rales, Rhonchi, Wheezing Cardiovascular: Irregularly Irregular GI/Abdominal: Normal Bowel Sounds, Soft, Other (colostomy with greenish brown soft stool. no redness around stoma retained suture 5 oclock ) Extremities: Normal Inspection, Pedal Edema (trace) Neurological: Alert, Slow to Respond Psychiatric: Normal Affect, Normal Mood Skin Exam: Warm, Dry, Intact, Normal Color Course - Vital Signs Last Recorded V/S: Last Vital Signs Temp 99.1 F 07/11/21 03:44 Pulse 112 H 07/11/21 03:44 Resp 16 07/11/21 03:44 BP 124/54 L 07/11/21 03:44 Pulse Ox 97 07/11/21 03:44 - Orders/Labs/Meds Orders: Active Orders 24 hr Category Date Time Status CULTURE BLOOD [BC] Stat Lab 07/10/21 19:20 Results CULTURE BLOOD [BC] Stat Lab 07/10/21 19:30 Received Blood Culture x2 Reflex Set [OM.PC] Stat Oth 07/10/21 18:54 Ordered Medication Orders Acetaminophen (Acetaminophen 325 Mg Tab) 650 mg PO Q6H PRN PRN Reason: Pain/Fever Last Admin: 07/11/21 03:39 Dose: 650 mg Documented by: ERICROX Allopurinol (Allopurinol 100 Mg Tab) 100 mg PO DAILY [facility] Carvedilol (Carvedilol 6.25 Mg Tab) 12.5 mg PO BIDMEALS [facility] Last Admin: 07/11/21 00:51 Dose: Not Given Documented by: ERICROX Cholecalciferol (Cholecalciferol (Vitamin D3) 25 Mcg Tab) 25 mcg PO DAILY [facility] Cyanocobalamin (Cyanocobalamin (Vitamin B12) 1,000 Mcg Tab) 500 mcg PO DAILY [facility] Dextrose/Water (50% Dextrose In Water 50 Ml Syringe) 50 ml IVPUSH Q15M PRN PRN Reason: Hypoglycemia Digoxin (Digoxin 125 Mcg Tab) 187.5 mcg PO DAILY@0800 [facility] Famotidine (Famotidine 20 Mg Tab) 20 mg PO DAILY [facility] Furosemide (Furosemide 20 Mg Tab) 20 mg PO DAILY [facility] Glucagon (Glucagon,Human Recombinant 1 Mg Vial) 1 mg IM Q15M PRN PRN Reason: Hypoglycemia Piperacillin Sod/Tazobactam (Sod 3.375 gm/ Sodium Chloride) 100 mls @ 200 mls/hr IV Q6H [facility] Last Admin: 07/11/21 03:41 Dose: 200 mls/hr Documented by: ERICROX Insulin Human Lispro (Insulin Lispro 100 Units/Ml 3 Ml Vial) 0 unit SUBCUT WITHMEALSANDBED [facility]; Protocol Losartan Potassium (Losartan 25 Mg Tab) 25 mg PO Q48H [facility] Non-Formulary Medication (Ferrous Gluconate [Ferrous Gluconate]) 324 mg PO DAILY [facility] Non-Formulary Medication (Lactobacillus Acidophilus [Acidophilus]) 1 tab PO BID [facility] Ondansetron HCl (Ondansetron 4 Mg Tab.Dis) 8 mg PO Q8H PRN PRN Reason: Nausea Oxycodone HCl (Oxycodone 5 Mg Tab) 5 mg PO Q4H PRN PRN Reason: Pain (moderate 4-6) Simvastatin (Simvastatin 40 Mg Tab) 40 mg PO BEDTIME [facility] Tamsulosin HCl (Tamsulosin 0.4 Mg Cap.Er) 0.4 mg PO DAILY [facility] Warfarin Sodium (Warfarin 5 Mg Tab) 5 mg PO DAILY@1400 [facility] Labs: Laboratory Tests 07/10/21 07/10/21 07/10/21 Range/Units 19:20 19:20 19:20 WBC 11.2 H (5.0-10.0) 10^3/uL RBC 3.75 L (4.6-6.2) 10^6/uL Hgb 11.3 L D (14.0-18.0) g/dL Hct 35.5 L (40.0-54.0) % MCV 94.7 (80-100) fL MCH 30.1 (27.0-34.0) pg MCHC 31.8 L (33.0-35.0) g/dL Plt Count 251 (150-450) 10^3/uL Neut % (Auto) 81.1 H (42.2-75.2) % Lymph % (Auto) 9.3 L (20.5-50.1) % Stevens % (Auto) 9.3 H (2-8) % Eos % (Auto) 0.1 L (1.0-3.0) % Baso % (Auto) 0.2 (0.0-1.0) % PT 29.8 H D (9.0-12.0) SEC INR 3.0 H (0.9-1.2) Sodium (136-145) mmol/L Potassium (3.5-5.1) mmol/L Chloride (98-107) mmol/L Carbon Dioxide (21-32) mmol/L Anion Gap (7-13) mEq/L BUN (7-18) mg/dL Creatinine (0.70-1.30) mg/dL Est Cr Clr Drug Dosing Estimated GFR (MDRD) BUN/Creatinine Ratio (No establ ref range) Glucose (70-99) mg/dL Lactic Acid (0.4-2.0) mmol/L Calcium (8.5-10.1) mg/dL Magnesium (1.8-2.4) mg/dL Total Bilirubin (0.2-1.0) mg/dL AST (15-37) U/L ALT (16-63) U/L Alkaline Phosphatase (46-116) U/L Troponin I High Sens (<=76) pg/mL B-Natriuretic Peptide (0-100) pg/ml Total Protein (6.4-8.2) g/dL Albumin (3.4-5.0) g/dL Globulin Albumin/Globulin Ratio Amylase (25-115) U/L Lipase (73-393) U/L Urine Color (YELLOW) Urine Appearance (CLEAR) Urine pH (5.0-9.0) Ur Specific Sidney (1.005-1.030) Urine Protein (NEGATIVE) Urine Glucose (UA) (NEGATIVE) Urine Ketones (NEGATIVE) Urine Occult Blood (NEGATIVE) Urine Nitrite (NEGATIVE) Urine Bilirubin (NEGATIVE) Urine Urobilinogen (0.2-1.0) mg/dL Ur Leukocyte Esterase (NEGATIVE) Urine RBC (0-5) /HPF Urine WBC (0-5/HPF) /HPF Ur Epithelial Cells (NOT SEEN) /HPF Amorphous Sediment (NOT SEEN) /HPF Urine Bacteria (0-FEW/HPF) /HPF Fine Granular Casts (NOT SEEN) /LPF Digoxin (0.9-2.0) ng/mL Influenza Type A RNA Negative (NEGATIVE) Influenza Type B RNA Negative (NEGATIVE) SARS-CoV-2 RNA (SHARMAINE) Negative (NEGATIVE) 07/10/21 07/10/21 07/10/21 Range/Units 19:20 19:20 19:20 WBC (5.0-10.0) 10^3/uL RBC (4.6-6.2) 10^6/uL Hgb (14.0-18.0) g/dL Hct (40.0-54.0) % MCV (80-100) fL MCH (27.0-34.0) pg MCHC (33.0-35.0) g/dL Plt Count (150-450) 10^3/uL Neut % (Auto) (42.2-75.2) % Lymph % (Auto) (20.5-50.1) % Stevens % (Auto) (2-8) % Eos % (Auto) (1.0-3.0) % Baso % (Auto) (0.0-1.0) % PT (9.0-12.0) SEC INR (0.9-1.2) Sodium (136-145) mmol/L Potassium (3.5-5.1) mmol/L Chloride (98-107) mmol/L Carbon Dioxide (21-32) mmol/L Anion Gap (7-13) mEq/L BUN (7-18) mg/dL Creatinine (0.70-1.30) mg/dL Est Cr Clr Drug Dosing Estimated GFR (MDRD) BUN/Creatinine Ratio (No establ ref range) Glucose (70-99) mg/dL Lactic Acid 1.1 (0.4-2.0) mmol/L Calcium (8.5-10.1) mg/dL Magnesium 1.7 L (1.8-2.4) mg/dL Total Bilirubin (0.2-1.0) mg/dL AST (15-37) U/L ALT (16-63) U/L Alkaline Phosphatase (46-116) U/L Troponin I High Sens 11 (<=76) pg/mL B-Natriuretic Peptide 144 H (0-100) pg/ml Total Protein (6.4-8.2) g/dL Albumin (3.4-5.0) g/dL Globulin Albumin/Globulin Ratio Amylase 46 (25-115) U/L Lipase 193 (73-393) U/L Urine Color (YELLOW) Urine Appearance (CLEAR) Urine pH (5.0-9.0) Ur Specific Sidney (1.005-1.030) Urine Protein (NEGATIVE) Urine Glucose (UA) (NEGATIVE) Urine Ketones (NEGATIVE) Urine Occult Blood (NEGATIVE) Urine Nitrite (NEGATIVE) Urine Bilirubin (NEGATIVE) Urine Urobilinogen (0.2-1.0) mg/dL Ur Leukocyte Esterase (NEGATIVE) Urine RBC (0-5) /HPF Urine WBC (0-5/HPF) /HPF Ur Epithelial Cells (NOT SEEN) /HPF Amorphous Sediment (NOT SEEN) /HPF Urine Bacteria (0-FEW/HPF) /HPF Fine Granular Casts (NOT SEEN) /LPF Digoxin 1.1 (0.9-2.0) ng/mL Influenza Type A RNA (NEGATIVE) Influenza Type B RNA (NEGATIVE) SARS-CoV-2 RNA (SHARMAINE) (NEGATIVE) 07/10/21 07/10/21 Range/Units 19:30 21:20 WBC (5.0-10.0) 10^3/uL RBC (4.6-6.2) 10^6/uL Hgb (14.0-18.0) g/dL Hct (40.0-54.0) % MCV (80-100) fL MCH (27.0-34.0) pg MCHC (33.0-35.0) g/dL Plt Count (150-450) 10^3/uL Neut % (Auto) (42.2-75.2) % Lymph % (Auto) (20.5-50.1) % Stevens % (Auto) (2-8) % Eos % (Auto) (1.0-3.0) % Baso % (Auto) (0.0-1.0) % PT (9.0-12.0) SEC INR (0.9-1.2) Sodium 135 L (136-145) mmol/L Potassium 4.2 (3.5-5.1) mmol/L Chloride 98 (98-107) mmol/L Carbon Dioxide 25 (21-32) mmol/L Anion Gap 16.2 H (7-13) mEq/L BUN 17 (7-18) mg/dL Creatinine 1.52 H (0.70-1.30) mg/dL Est Cr Clr Drug Dosing TNP Estimated GFR (MDRD) 45 BUN/Creatinine Ratio 11.2 (No establ ref range) Glucose 195 H (70-99) mg/dL Lactic Acid (0.4-2.0) mmol/L Calcium 8.3 L (8.5-10.1) mg/dL Magnesium (1.8-2.4) mg/dL Total Bilirubin 0.7 (0.2-1.0) mg/dL AST 24 (15-37) U/L ALT 19 (16-63) U/L Alkaline Phosphatase 79 (46-116) U/L Troponin I High Sens (<=76) pg/mL B-Natriuretic Peptide (0-100) pg/ml Total Protein 7.4 (6.4-8.2) g/dL Albumin 2.8 L (3.4-5.0) g/dL Globulin 4.6 Albumin/Globulin Ratio 0.61 Amylase (25-115) U/L Lipase (73-393) U/L Urine Color Dark yellow (YELLOW) Urine Appearance Slightly cloudy (CLEAR) Urine pH 6.0 (5.0-9.0) Ur Specific Sidney >= 1.030 (1.005-1.030) Urine Protein >=300 H (NEGATIVE) Urine Glucose (UA) 100 H (NEGATIVE) Urine Ketones Negative (NEGATIVE) Urine Occult Blood Negative (NEGATIVE) Urine Nitrite Negative (NEGATIVE) Urine Bilirubin Negative (NEGATIVE) Urine Urobilinogen 0.2 (0.2-1.0) mg/dL Ur Leukocyte Esterase Negative (NEGATIVE) Urine RBC Not seen (0-5) /HPF Urine WBC 40-50 H (0-5/HPF) /HPF Ur Epithelial Cells Moderate H (NOT SEEN) /HPF Amorphous Sediment Few (NOT SEEN) /HPF Urine Bacteria Many H (0-FEW/HPF) /HPF Fine Granular Casts Many H (NOT SEEN) /LPF Digoxin (0.9-2.0) ng/mL Influenza Type A RNA (NEGATIVE) Influenza Type B RNA (NEGATIVE) SARS-CoV-2 RNA ([place]AR[place]INE) (NEGATIVE) Meds: Medications Generic Name Dose Route Start Last Admin Trade Name Freq PRN Reason Stop Dose Admin Acetaminophen 650 mg 07/11/21 00:14 07/11/21 03:39 Acetaminophen 325 Mg Tab PO 650 mg Q6H PRN Administration Pain/Fever Allopurinol 100 mg 07/11/21 09:00 Allopurinol 100 Mg Tab PO DAILY [facility] Carvedilol 12.5 mg 07/11/21 00:15 07/11/21 00:51 Carvedilol 6.25 Mg Tab PO Not Given BIDMEALS [facility] Cholecalciferol 25 mcg 07/11/21 09:00 Cholecalciferol (Vitamin D3) 25 Mcg Tab PO DAILY [facility] Cyanocobalamin 500 mcg 07/11/21 09:00 Cyanocobalamin (Vitamin B12) 1,000 Mcg Tab PO DAILY [facility] Dextrose/Water 50 ml 07/11/21 00:13 50% Dextrose In Water 50 Ml Syringe IVPUSH Q15M PRN Hypoglycemia Digoxin 187.5 mcg 07/11/21 08:00 Digoxin 125 Mcg Tab PO DAILY@0800 [facility] Famotidine 20 mg 07/11/21 09:00 Famotidine 20 Mg Tab PO DAILY [facility] Furosemide 20 mg 07/11/21 09:00 Furosemide 20 Mg Tab PO DAILY [facility] Glucagon 1 mg 07/11/21 00:13 Glucagon,Human Recombinant 1 Mg Vial IM Q15M PRN Hypoglycemia Piperacillin Sod/Tazobactam 100 mls @ 200 mls/hr 07/11/21 03:00 07/11/21 03:41 Sod 3.375 gm/ Sodium Chloride IV 200 mls/hr Q6H [facility] Administration Insulin Human Lispro 0 unit 07/11/21 08:00 Insulin Lispro 100 Units/Ml 3 Ml Vial SUBCUT WITHMEALSANDBED [facility] Protocol Losartan Potassium 25 mg 07/11/21 00:15 Losartan 25 Mg Tab PO Q48H [facility] Non-Formulary Medication 324 mg 07/11/21 09:00 Ferrous Gluconate [Ferrous Gluconate] PO DAILY [facility] Non-Formulary Medication 1 tab 07/11/21 09:00 Lactobacillus Acidophilus [Acidophilus] PO BID [facility] Ondansetron HCl 8 mg 07/11/21 00:14 Ondansetron 4 Mg Tab.Dis PO Q8H PRN Nausea Oxycodone HCl 5 mg 07/11/21 00:14 Oxycodone 5 Mg Tab PO Q4H PRN Pain (moderate 4-6) Simvastatin 40 mg 07/11/21 21:00 Simvastatin 40 Mg Tab PO BEDTIME [facility] Tamsulosin HCl 0.4 mg 07/11/21 09:00 Tamsulosin 0.4 Mg Cap.Er PO DAILY [facility] Warfarin Sodium 5 mg 07/11/21 14:00 Warfarin 5 Mg Tab PO DAILY@1400 [facility] Discontinued Medications Generic Name Dose Route Start Last Admin Trade Name Jake PRN Reason Stop Dose Admin Acetaminophen 650 mg 07/10/21 19:35 07/10/21 19:55 Acetaminophen 325 Mg Tab PO 07/10/21 19:36 650 mg NOW ONE Administration Diltiazem HCl 20 mg 07/10/21 23:23 Diltiazem 25 Mg/5 Ml Sdv IVPUSH 07/10/21 23:24 ONETIME ONE Sodium Chloride 1,000 mls @ 200 mls/hr 07/10/21 19:43 07/10/21 19:56 Normal Saline IV 07/11/21 00:42 200 mls/hr .BOLUS ONE Administration Piperacillin Sod/Tazobactam 100 mls @ 200 mls/hr 07/10/21 20:44 07/10/21 20:58 Sod 3.375 gm/ Sodium Chloride IV 07/10/21 21:13 200 mls/hr ONETIME ONE Administration Peppermint Confirm 07/10/21 19:50 07/10/21 20:50 Peppermint Oil 30 Ml Bottle Administered 07/10/21 19:51 Not Given Dose 30 ml .ROUTE .STK-MED ONE - Re-Assessments/Exams Free Text/Narrative Re-Assessment/Exam: 07/11/21 05:[address] Tito DURAN Hospitalist. Here to assess patient. Admit acute care. Sepsis T T max 103. Hx colon cancer with resection and colostomy. Chronic A-fib, increased weakness Departure - Departure Time of Disposition: 22:30 Disposition: Admitted As Inpatient 64 Condition: Fair Clinical Impression: Chronic a-fib, Weakness Sepsis Qualifiers: Sepsis type: sepsis due to unspecified organism Sepsis acute organ dysfunction status: without acute organ dysfunction Qualified Code(s): A41.9 - Sepsis, unspecified organism Type 2 diabetes mellitus Qualifiers: Diabetes mellitus community chest officer insulin use: without prison use Diabetes mellitus complication status: with kidney complications Diabetes mellitus complication detail: with chronic kidney disease Chronic kidney disease stage: unspecified stage Qualified Code(s): E11.22 - Type 2 diabetes mellitus with diabetic chronic kidney disease - Discharge Information *PRESCRIPTION DRUG MONITORING PROGRAM REVIEWED*: No *COPY OF PRESCRIPTION DRUG MONITORING REPORT IN PATIENT SUSANNA: No Sepsis Event Note (ED) - Focused Exam Vital Signs: Vital Signs Temp Temp Pulse Resp BP Pulse Ox 07/10/21 21:46 98 F 104 H 20 98/54 L 95 07/10/21 21:04 100.8 F H 07/10/21 19:55 102 F H 07/10/21 19:34 102 F H 119 H 27 H 131/71 95 - My Orders Last 24 Hours: My Active Orders 07/10/21 18:54 Blood Culture x2 Reflex Set [OM.PC] Stat 07/10/21 19:20 CULTURE BLOOD [BC] Stat 07/10/21 19:30 CULTURE BLOOD [BC] Stat - Assessment/Plan Last 24 Hours: My Active Orders 07/10/21 18:54 Blood Culture x2 Reflex Set [OM.PC] Stat 07/10/21 19:20 CULTURE BLOOD [BC] Stat 07/10/21 19:30 CULTURE BLOOD [BC] Stat
[2021-07-10] MEDS ORDERED: Acetaminophen 325 MG Tab PO ONE (19:35)
[2021-07-10] MEDS ORDERED: Sodium Chloride 0.9% 1,000 ML IV ONE (19:43)
[2021-07-10 20:04] LABS: CORONAVIRUS COVID-19 NAA NEGATIVE (NEGATIVE)
[2021-07-10 20:19] LABS: ANION GAP 16.2 mEq/L (7-13); CHLORIDE,CL 98 mmol/L (98-107); SODIUM,NA 135 mmol/L (136-145)
[2021-07-10] MEDS ORDERED: Piperacillin/Tazobactam 3.375 GM in Sodium Chloride 0.9% 100 ML IV ONE (20:44)
--- NOTE | 2021-07-10 21:42 | CT ---
PROCEDURE INFORMATION: Exam: CT Chest Without Contrast; Diagnostic Exam date and time: 07/10/2021 8:58 PM Age: 75 years old Clinical indication: Fever; Prior surgery; Surgery date: <1 month; Surgery type: Colon resection; Additional info: Fever, HX colon resection 3 weeks ago. [id number] TECHNIQUE: Imaging protocol: Diagnostic computed tomography of the chest without contrast. Radiation optimization: All CT scans at this facility use at least one of these dose optimization techniques: automated exposure control; mA and/or kV adjustment per patient size (includes targeted exams where dose is matched to clinical indication); or iterative reconstruction. COMPARISON: CT Abdomen Pelvis w Cont 05/14/2021 12:41 PM FINDINGS: Lungs: Emphysematous changes are present bilaterally. No significant abnormality is seen in the upper lung hancock. Minimal dependent atelectasis seen at lung bases. Pleural spaces: Unremarkable. No pneumothorax. No pleural effusion. Heart: The heart is mildly enlarged with a trace of pericardial effusion. Aorta: Unremarkable. No aortic aneurysm. Lymph nodes: Unremarkable. No enlarged lymph nodes. Bones/joints: Moderate degenerative changes are present in the dorsal spine. Soft tissues: Unremarkable. IMPRESSION: Emphysematous changes. 2. No definite acute parenchymal opacification is identified. 3. Cardiomegaly with trace of pericardial effusion. PROCEDURE INFORMATION: Exam: CT Abdomen And Pelvis Without Contrast Exam date and time: 07/10/2021 8:58 PM Age: 75 years old Clinical indication: Fever; Prior surgery; Surgery date: <1 month; Surgery type: Colon resection; Additional info: Fever, HX colon resection 3 weeks ago. [id number] TECHNIQUE: Imaging protocol: Computed tomography of the abdomen and pelvis without contrast. Radiation optimization: All CT scans at this facility use at least one of these dose optimization techniques: automated exposure control; mA and/or kV adjustment per patient size (includes targeted exams where dose is matched to clinical indication); or iterative reconstruction. COMPARISON: CT Abdomen Pelvis w Cont 05/14/2021 12:41 PM FINDINGS: Lungs: No significant abnormality is noted at the lung bases. Liver: Normal. No mass. Gallbladder and bile ducts: Surgical clips are present in the gallbladder fossa. Pancreas: Normal. No ductal dilation. Spleen: Normal. No splenomegaly. Adrenal glands: Normal. No mass. Kidneys and ureters: Normal. No hydronephrosis. Stomach and bowel: Unremarkable. No obstruction. No mucosal thickening. There is an ostomy site in the left anterior abdominal wall without evidence of bowel obstruction. Appendix: No evidence of appendicitis. Intraperitoneal space: Unremarkable. No free air. No significant fluid collection. Vasculature: Moderate calcification is present at the origin of the SMA with approximately 60% narrowing of the proximal SMA. No significant narrowing is seen the origin of the celiac axis. No aortic aneurysm is present. Lymph nodes: Unremarkable. No enlarged lymph nodes. Urinary bladder: Unremarkable as visualized. Reproductive: Unremarkable as visualized. Lipomatosis spermatic cords. Bones/joints: Extensive degenerative changes seen about the facet joints at L4/5 and L5/S1. At L4/5 the thecal sac is narrowed to 9 mm in both AP and interpedicular diameters. At L5/S1 no significant spinal stenosis is present but the foramina appear moderately compromised at that level. Soft tissues: Unremarkable. IMPRESSION: No definite acute change is identified other than the left ostomy. 2. Moderate stenosis of the SMA. 3. Extensive facet joint arthropathy at L4/5 and L5/S1. Mild central canal stenosis is present L4/5. Moderate bilateral foraminal stenosis is present at L5-S1.
[2021-07-10] MEDS ORDERED: Diltiazem 25 MG/5 ML SDV IVPUSH ONE (23:23)
[2021-07-11] MEDS ORDERED: 50% Dextrose in Water 50 ML Syringe IVPUSH PRN (00:13)
[2021-07-11] MEDS ORDERED: Glucagon,Human Recombinant 1 MG Vial IM PRN (00:13)
[2021-07-11] MEDS ORDERED: oxyCODONE 5 MG Tab PO PRN (00:14)
[2021-07-11] MEDS ORDERED: Ondansetron 4 MG Tab.DIS PO PRN (00:14)
[2021-07-11] MEDS: Carvedilol 6.25 MG Tab PO SCH ×3 (00:51→18:11)
--- NOTE | 2021-07-11 02:31 | HP ---
HISTORY OF PRESENT ILLNESS: The patient is a 75 years old man with history of diabetes mellitus; colon cancer, status post resection on 06/17 at [facility] [place] [facility] in [place], [place]; who presented to emergency room today because of pain localized in the lower abdomen that started the day before in the evening. The patient for the past few days is sleeping a lot. Last night, he slept in the recliner because of the abdominal pain which was rated 8 in 10, and it was intermittent, described as discomfort in the lower abdomen. The patient was discharged from [facility] [place] [facility] on 06/27/2021, and since then he is at home. He is not eating well as per his , and he lost about 3 pounds since he came home. His weight went from 177 to 174 as per his . The patient was diagnosed with colon cancer in February. He has colon cancer stage III, and he underwent chemotherapy and radiation therapy. He received 25 radiation therapy. The patient has a colostomy bag, and as per his who is at bedside the colostomy output was green, which is not the usual color of the colostomy and more liquid. The patient also had fever. At arrival in the ER, his temperature was 103. ALLERGIES: The patient is allergic to azithromycin and lisinopril. He has rash and hives with azithromycin, and with lisinopril he has a cough. REVIEW OF SYSTEMS: 12-point review of systems is negative, except as in history of present illness. PAST MEDICAL HISTORY: The patient has diabetes mellitus; atrial fibrillation, on chronic coagulation; he has hypertension; hyperlipidemia; BPH; history of colon cancer, status post radiation therapy, status post chemotherapy, status post resection, and colostomy. PAST SURGICAL HISTORY: He is status post colon resection for colon cancer in 06/2021. FAMILY HISTORY: His mom had cancer and diabetes. SOCIAL HISTORY: The patient does not smoke. No alcohol use. No drug use. LABORATORY DATA: At admission; WBC 11.2, hemoglobin 11.3, hematocrit 35.5, MCV 94.7, platelet count 251, and neutrophil 81.1. PT 39.8 and INR 3. Sodium 135, potassium 4.2, chloride 98, CO2 of 25, anion gap 16.2, BUN 17, creatinine 1.52, and estimated GFR 45. BUN to creatinine ratio 11.2. Glucose 195, lactic acid 1.1, calcium 8.3, magnesium 1.7, total bilirubin 0.7, AST 24, ALT 19, alkaline phosphatase 79, troponin 11, BNP 144, total protein 7.4, albumin 2.8, globulin 4.6, amylase 46, and lipase 193. Urine appearance: Urine color is dark yellow, slightly cloudy, urine pH 6, urine specific gravity more than 1.030, urine protein more than 300, urine glucose 100, urine ketones negative, urine occult blood negative, nitrites negative, bilirubin negative, urobilinogen 0.2, leukocyte esterase negative, rbc not seen, wbc's 40 to 50, urine epithelial cells moderate, amorphous sediment few, urine bacteria many, and fine granular casts. Digoxin 1.1. Influenza type A and B negative. SARS-COVID negative. 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 PHYSICAL EXAMINATION: HEENT: Head is atraumatic and normocephalic. Pupils are reactive to light equally. Neck: Supple. No thyromegaly. No lymphadenopathy. Heart: S1 and S2. Mildly tachycardic. Irregular rhythm and rate. Abdomen: Soft and nontender. Positive bowel sounds. Extremities: No edema. The patient received pain medication in the emergency room. Neurologic: The patient is alert and oriented x3. There are no gross focal neurologic deficits. ASSESSMENT AND PLAN: A 75 years old man with past medical history of diabetes mellitus; atrial fibrillation, on chronic coagulation; colon cancer, status post resection on 06/17, status post prior chemotherapy and radiation therapy, presented today to the emergency room with fever of 103 associated with lower abdominal pain, intermittent. The patient also reports having a change in his urinary output, which is clean and more liquid. Also urinalysis show wbc's between 40 and 50, many bacteria, and fine granular casts. Assessment is sepsis secondary to urinary tract infection and possible colitis. We will order urine culture, also stool cultures, and stool for C diff. We will continue patient's follow up. We will follow blood culture. We will continue patient with Zosyn 3.375 IV q.6 hours. For atrial fibrillation, the patient will be continued with Coumadin 5 mg p.o. daily. Follow up INR. We will continue with digoxin 187.5 mcg p.o. daily. Home medication also with Coreg 12.5 mg p.o. b.i.d. For BPH, the patient will be continue with tamsulosin 0.4 mg p.o. daily. For hyperlipidemia, stable, the patient will be continued with simvastatin 40 mg p.o. daily. For diabetes mellitus, we will hold glimepiride, and we will continue the patient with insulin on sliding scale a.c. and at bedtime. The patient was placed on clear liquid diet due to concern of possible colitis. For chronic kidney disease, the patient will be continued with allopurinol 100 mg p.o. daily. Also we will send stool for C. diff. For colon cancer, the patient to follow up with recommendation from his Oncology. Deep venous thrombosis prophylaxis, the patient is on warfarin. He does not need Coumadin. He does not need heparin. For gastrointestinal prophylaxis, we will put the patient on Pepcid 20 mg p.o. daily. [facility] /[id number]
[2021-07-11] MEDS: Acetaminophen 325 MG Tab PO PRN ×3 (03:39→21:21)
[2021-07-11] MEDS: Piperacillin/Tazobactam 3.375 GM in Sodium Chloride 0.9% 100 ML IV SCH ×4 (03:41→21:15)
[2021-07-11] MEDS ORDERED: Losartan 25 MG Tab PO SCH (09:00)
[2021-07-11] MEDS: Digoxin 125 MCG Tab PO SCH (09:50)
[2021-07-11] MEDS: Furosemide 20 MG Tab PO SCH (09:52)
[2021-07-11] MEDS: Cyanocobalamin (Vitamin B12) 1,000 MCG Tab PO SCH (09:52)
[2021-07-11] MEDS: Tamsulosin 0.4 MG Cap.ER PO SCH (09:52)
[2021-07-11] MEDS: Famotidine 20 MG Tab PO SCH (10:12)
[2021-07-11] MEDS: Insulin Lispro 100 Units/ML 3 ML Vial SUBCUT SCH ×4 (10:13→21:16)
[2021-07-11] MEDS: Cholecalciferol (Vitamin D3) 25 MCG Tab PO SCH (10:13)
[2021-07-11] MEDS: Allopurinol 100 MG Tab PO SCH (10:13)
[2021-07-11] MEDS: Saccharomyces Boulardii (Probiotic) 250 MG Cap PO SCH ×2 (11:37→21:11)
--- NOTE | 2021-07-11 11:48 | PCM.PN ---
- General Info Date of Service: 07/11/21 Admission Dx/Problem (Free Text): The patient was admitted with lower abdominal pain, fever temp 103, possible colitis diffusely weakness, poor appetite, and weight loss. The patient has past medical history which is significant for diabetes, atrial fibrillation on chronic anticoagulation hypertension, hyperlipidemia, BPH, colon cancer, status post resection 112 [address] [facility] in [facility] he was discharged from [facility] on 06/27/2021 and since then he is at home but has poor appetite his colon cancer is at least stage III and he underwent chemotherapy and radiation therapy he has received 25 sessions of radiation therapy the patient has a colostomy bag and as per the output from the colostomy is green which is not the usual color and after admission. Stool was sent for C. difficile ova and parasites and empirically started him on metronidazole. Subjective Update: Today the patient was seen in room in rounds, he is feeling better and he is on now clear liquid diet but it is advanced now to pured diet and see if the abdominal pain improves he says it is much better now and has no nausea ,vomiting, or or any dysuria. Functional Status: Reports: Pain Controlled, Tolerating Diet, Ambulating, Urinating - Review of Systems General: Reports: Weakness, Appetite (acceptable). Denies: Fever, Chills HEENT: Denies: Dysphasia, Headaches, Sinus Congestion, Sore Throat, Visual Changes Pulmonary: Denies: Shortness of Breath, Cough, Wheezing Cardiovascular: Denies: Chest Pain, Dyspnea on Exertion, Lightheadedness Gastrointestinal: Reports: Abdominal Pain. Denies: Diarrhea, Difficulty Swallowing, Nausea, Vomiting Genitourinary: Denies: Dysuria, Frequency, Urgency, Flank Pain Musculoskeletal: Denies: Neck Pain, Leg Pain, Joint Pain, Joint Swelling Skin: Denies: Jaundice, Bruising, Rash Neurological: Reports: Weakness. Denies: Headache, Tremors, Trouble Speaking, Change in Speech Psychiatric: Denies: Confusion, Depression - Patient Data Vitals - Most Recent: Last Vital Signs Temp 37.1 C 07/11/21 07:00 Pulse 103 H 07/11/21 09:51 Resp 18 07/11/21 07:00 BP 119/78 07/11/21 10:04 Pulse Ox 98 07/11/21 07:00 Weight - Most Recent: 83.2 kg I&O - Last 24 Hours: Intake & Output 07/10/21 07/11/21 07/11/21 22:59 06:59 14:59 Intake Total 1100 Output Total 400 Balance 700 Lab Results Last 24 Hours: Laboratory Results - last 24 hr 07/10/21 07/10/21 07/10/21 Range/Units 19:20 19:20 19:20 WBC 11.2 H (5.0-10.0) 10^3/uL RBC 3.75 L (4.6-6.2) 10^6/uL Hgb 11.3 L D (14.0-18.0) g/dL Hct 35.5 L (40.0-54.0) % MCV 94.7 (80-100) fL MCH 30.1 (27.0-34.0) pg MCHC 31.8 L (33.0-35.0) g/dL Plt Count 251 (150-450) 10^3/uL Neut % (Auto) 81.1 H (42.2-75.2) % Lymph % (Auto) 9.3 L (20.5-50.1) % [place] % (Auto) 9.3 H (2-8) % Eos % (Auto) 0.1 L (1.0-3.0) % Baso % (Auto) 0.2 (0.0-1.0) % PT 29.8 H D (9.0-12.0) SEC INR 3.0 H (0.9-1.2) Sodium (136-145) mmol/L Potassium (3.5-5.1) mmol/L Chloride (98-107) mmol/L Carbon Dioxide (21-32) mmol/L Anion Gap (7-13) mEq/L BUN (7-18) mg/dL Creatinine (0.70-1.30) mg/dL Est Cr Clr Drug Dosing Estimated GFR (MDRD) BUN/Creatinine Ratio (No establ ref range) Glucose (70-99) mg/dL POC Glucose (70-99) mg/dL Lactic Acid (0.4-2.0) mmol/L Calcium (8.5-10.1) mg/dL Magnesium (1.8-2.4) mg/dL Total Bilirubin (0.2-1.0) mg/dL AST (15-37) U/L ALT (16-63) U/L Alkaline Phosphatase (46-116) U/L Troponin I High Sens (<=76) pg/mL B-Natriuretic Peptide (0-100) pg/ml Total Protein (6.4-8.2) g/dL Albumin (3.4-5.0) g/dL Globulin Albumin/Globulin Ratio Amylase (25-115) U/L Lipase (73-393) U/L Urine Color (YELLOW) Urine Appearance (CLEAR) Urine pH (5.0-9.0) Ur Specific [place] (1.005-1.030) Urine Protein (NEGATIVE) Urine Glucose (UA) (NEGATIVE) Urine Ketones (NEGATIVE) Urine Occult Blood (NEGATIVE) Urine Nitrite (NEGATIVE) Urine Bilirubin (NEGATIVE) Urine Urobilinogen (0.2-1.0) mg/dL Ur Leukocyte Esterase (NEGATIVE) Urine RBC (0-5) /HPF Urine WBC (0-5/HPF) /HPF Ur Epithelial Cells (NOT SEEN) /HPF Amorphous Sediment (NOT SEEN) /HPF Urine Bacteria (0-FEW/HPF) /HPF Fine Granular Casts (NOT SEEN) /LPF Digoxin (0.9-2.0) ng/mL Influenza Type A RNA Negative (NEGATIVE) Influenza Type B RNA Negative (NEGATIVE) SARS-CoV-2 RNA (SHAR[place]INE) Negative (NEGATIVE) 07/10/21 07/10/21 07/10/21 Range/Units 19:20 19:20 19:20 WBC (5.0-10.0) 10^3/uL RBC (4.6-6.2) 10^6/uL Hgb (14.0-18.0) g/dL Hct (40.0-54.0) % MCV (80-100) fL MCH (27.0-34.0) pg MCHC (33.0-35.0) g/dL Plt Count (150-450) 10^3/uL Neut % (Auto) (42.2-75.2) % Lymph % (Auto) (20.5-50.1) % [place] % (Auto) (2-8) % Eos % (Auto) (1.0-3.0) % Baso % (Auto) (0.0-1.0) % PT (9.0-12.0) SEC INR (0.9-1.2) Sodium (136-145) mmol/L Potassium (3.5-5.1) mmol/L Chloride (98-107) mmol/L Carbon Dioxide (21-32) mmol/L Anion Gap (7-13) mEq/L BUN (7-18) mg/dL Creatinine (0.70-1.30) mg/dL Est Cr Clr Drug Dosing Estimated GFR (MDRD) BUN/Creatinine Ratio (No establ ref range) Glucose (70-99) mg/dL POC Glucose (70-99) mg/dL Lactic Acid 1.1 (0.4-2.0) mmol/L Calcium (8.5-10.1) mg/dL Magnesium 1.7 L (1.8-2.4) mg/dL Total Bilirubin (0.2-1.0) mg/dL AST (15-37) U/L ALT (16-63) U/L Alkaline Phosphatase (46-116) U/L Troponin I High Sens 11 (<=76) pg/mL B-Natriuretic Peptide 144 H (0-100) pg/ml Total Protein (6.4-8.2) g/dL Albumin (3.4-5.0) g/dL Globulin Albumin/Globulin Ratio Amylase 46 (25-115) U/L Lipase 193 (73-393) U/L Urine Color (YELLOW) Urine Appearance (CLEAR) Urine pH (5.0-9.0) Ur Specific [place] (1.005-1.030) Urine Protein (NEGATIVE) Urine Glucose (UA) (NEGATIVE) Urine Ketones (NEGATIVE) Urine Occult Blood (NEGATIVE) Urine Nitrite (NEGATIVE) Urine Bilirubin (NEGATIVE) Urine Urobilinogen (0.2-1.0) mg/dL Ur Leukocyte Esterase (NEGATIVE) Urine RBC (0-5) /HPF Urine WBC (0-5/HPF) /HPF Ur Epithelial Cells (NOT SEEN) /HPF Amorphous Sediment (NOT SEEN) /HPF Urine Bacteria (0-FEW/HPF) /HPF Fine Granular Casts (NOT SEEN) /LPF Digoxin 1.1 (0.9-2.0) ng/mL Influenza Type A RNA (NEGATIVE) Influenza Type B RNA (NEGATIVE) SARS-CoV-2 RNA ([place]) (NEGATIVE) 07/10/21 07/10/21 07/11/21 Range/Units 19:30 21:20 05:40 WBC (5.0-10.0) 10^3/uL RBC (4.6-6.2) 10^6/uL Hgb (14.0-18.0) g/dL Hct (40.0-54.0) % MCV (80-100) fL MCH (27.0-34.0) pg MCHC (33.0-35.0) g/dL Plt Count (150-450) 10^3/uL Neut % (Auto) (42.2-75.2) % Lymph % (Auto) (20.5-50.1) % [place] % (Auto) (2-8) % Eos % (Auto) (1.0-3.0) % Baso % (Auto) (0.0-1.0) % PT 23.8 H (9.0-12.0) SEC INR 2.4 H (0.9-1.2) Sodium 135 L (136-145) mmol/L Potassium 4.2 (3.5-5.1) mmol/L Chloride 98 (98-107) mmol/L Carbon Dioxide 25 (21-32) mmol/L Anion Gap 16.2 H (7-13) mEq/L BUN 17 (7-18) mg/dL Creatinine 1.52 H (0.70-1.30) mg/dL Est Cr Clr Drug Dosing TNP Estimated GFR (MDRD) 45 BUN/Creatinine Ratio 11.2 (No establ ref range) Glucose 195 H (70-99) mg/dL POC Glucose (70-99) mg/dL Lactic Acid (0.4-2.0) mmol/L Calcium 8.3 L (8.5-10.1) mg/dL Magnesium (1.8-2.4) mg/dL Total Bilirubin 0.7 (0.2-1.0) mg/dL AST 24 (15-37) U/L ALT 19 (16-63) U/L Alkaline Phosphatase 79 (46-116) U/L Troponin I High Sens (<=76) pg/mL B-Natriuretic Peptide (0-100) pg/ml Total Protein 7.4 (6.4-8.2) g/dL Albumin 2.8 L (3.4-5.0) g/dL Globulin 4.6 Albumin/Globulin Ratio 0.61 Amylase (25-115) U/L Lipase (73-393) U/L Urine Color Dark yellow (YELLOW) Urine Appearance Slightly cloudy (CLEAR) Urine pH 6.0 (5.0-9.0) Ur Specific [place] >= 1.030 (1.005-1.030) Urine Protein >=300 H (NEGATIVE) Urine Glucose (UA) 100 H (NEGATIVE) Urine Ketones Negative (NEGATIVE) Urine Occult Blood Negative (NEGATIVE) Urine Nitrite Negative (NEGATIVE) Urine Bilirubin Negative (NEGATIVE) Urine Urobilinogen 0.2 (0.2-1.0) mg/dL Ur Leukocyte Esterase Negative (NEGATIVE) Urine RBC Not seen (0-5) /HPF Urine WBC 40-50 H (0-5/HPF) /HPF Ur Epithelial Cells Moderate H (NOT SEEN) /HPF Amorphous Sediment Few (NOT SEEN) /HPF Urine Bacteria Many H (0-FEW/HPF) /HPF Fine Granular Casts Many H (NOT SEEN) /LPF Digoxin (0.9-2.0) ng/mL Influenza Type A RNA (NEGATIVE) Influenza Type B RNA (NEGATIVE) SARS-CoV-2 RNA ([place]) (NEGATIVE) 07/11/21 Range/Units 08:19 WBC (5.0-10.0) 10^3/uL RBC (4.6-6.2) 10^6/uL Hgb (14.0-18.0) g/dL Hct (40.0-54.0) % MCV (80-100) fL MCH (27.0-34.0) pg MCHC (33.0-35.0) g/dL Plt Count (150-450) 10^3/uL Neut % (Auto) (42.2-75.2) % Lymph % (Auto) (20.5-50.1) % [place] % (Auto) (2-8) % Eos % (Auto) (1.0-3.0) % Baso % (Auto) (0.0-1.0) % PT (9.0-12.0) SEC INR (0.9-1.2) Sodium (136-145) mmol/L Potassium (3.5-5.1) mmol/L Chloride (98-107) mmol/L Carbon Dioxide (21-32) mmol/L Anion Gap (7-13) mEq/L BUN (7-18) mg/dL Creatinine (0.70-1.30) mg/dL Est Cr Clr Drug Dosing Estimated GFR (MDRD) BUN/Creatinine Ratio (No establ ref range) Glucose (70-99) mg/dL POC Glucose 135 H (70-99) mg/dL Lactic Acid (0.4-2.0) mmol/L Calcium (8.5-10.1) mg/dL Magnesium (1.8-2.4) mg/dL Total Bilirubin (0.2-1.0) mg/dL AST (15-37) U/L ALT (16-63) U/L Alkaline Phosphatase (46-116) U/L Troponin I High Sens (<=76) pg/mL B-Natriuretic Peptide (0-100) pg/ml Total Protein (6.4-8.2) g/dL Albumin (3.4-5.0) g/dL Globulin Albumin/Globulin Ratio Amylase (25-115) U/L Lipase (73-393) U/L Urine Color (YELLOW) Urine Appearance (CLEAR) Urine pH (5.0-9.0) Ur Specific [place] (1.005-1.030) Urine Protein (NEGATIVE) Urine Glucose (UA) (NEGATIVE) Urine Ketones (NEGATIVE) Urine Occult Blood (NEGATIVE) Urine Nitrite (NEGATIVE) Urine Bilirubin (NEGATIVE) Urine Urobilinogen (0.2-1.0) mg/dL Ur Leukocyte Esterase (NEGATIVE) Urine RBC (0-5) /HPF Urine WBC (0-5/HPF) /HPF Ur Epithelial Cells (NOT SEEN) /HPF Amorphous Sediment (NOT SEEN) /HPF Urine Bacteria (0-FEW/HPF) /HPF Fine Granular Casts (NOT SEEN) /LPF Digoxin (0.9-2.0) ng/mL Influenza Type A RNA (NEGATIVE) Influenza Type B RNA (NEGATIVE) SARS-CoV-2 RNA ([place]) (NEGATIVE) Patrick Results Last 24 Hours: Microbiology 07/10/21 19:20 Anaerobic Blood Culture - Final Blood - Arm, Right Med Orders - Current: Current Medications Acetaminophen (Acetaminophen 325 Mg Tab) 650 mg PO Q6H PRN PRN Reason: Pain/Fever Last Admin: 07/11/21 03:39 Dose: 650 mg Documented by: Allopurinol (Allopurinol 100 Mg Tab) 100 mg PO DAILY [facility] Last Admin: 07/11/21 10:13 Dose: 100 mg Documented by: Carvedilol (Carvedilol 6.25 Mg Tab) 12.5 mg PO BIDMEALS [facility] Last Admin: 07/11/21 09:51 Dose: 12.5 mg Documented by: Cholecalciferol (Cholecalciferol (Vitamin D3) 25 Mcg Tab) 25 mcg PO DAILY [facility] Last Admin: 07/11/21 10:13 Dose: 25 mcg Documented by: Cyanocobalamin (Cyanocobalamin (Vitamin B12) 1,000 Mcg Tab) 500 mcg PO DAILY [facility] Last Admin: 07/11/21 09:52 Dose: 500 mcg Documented by: Dextrose/Water (50% Dextrose In Water 50 Ml Syringe) 50 ml IVPUSH Q15M PRN PRN Reason: Hypoglycemia Digoxin (Digoxin 125 Mcg Tab) 187.5 mcg PO DAILY@0800 [facility] Last Admin: 07/11/21 09:50 Dose: 187.5 mcg Documented by: Famotidine (Famotidine 20 Mg Tab) 20 mg PO DAILY [facility] Last Admin: 07/11/21 10:12 Dose: 20 mg Documented by: Ferrous Sulfate (Ferrous Sulfate 325 Mg Tab) 325 mg PO DAILY [facility] Furosemide (Furosemide 20 Mg Tab) 20 mg PO DAILY [facility] Last Admin: 07/11/21 09:52 Dose: 20 mg Documented by: Glucagon (Glucagon,Human Recombinant 1 Mg Vial) 1 mg IM Q15M PRN PRN Reason: Hypoglycemia Piperacillin Sod/Tazobactam (Sod 3.375 gm/ Sodium Chloride) 100 mls @ 200 mls/hr IV Q6H [facility] Last Admin: 07/11/21 10:10 Dose: 200 mls/hr Documented by: Insulin Human Lispro (Insulin Lispro 100 Units/Ml 3 Ml Vial) 0 unit SUBCUT WITHMEALSANDBED [facility]; Protocol Last Admin: 07/11/21 10:13 Dose: Not Given Documented by: Losartan Potassium (Losartan 25 Mg Tab) 25 mg PO Q48H [facility] Last Admin: 07/11/21 10:04 Dose: 25 mg Documented by: Magnesium Oxide (Magnesium Oxide 250 Mg Tab) 250 mg PO DAILY [facility] Last Admin: 07/11/21 10:13 Dose: 250 mg Documented by: Ondansetron HCl (Ondansetron 4 Mg Tab.Dis) 8 mg PO Q8H PRN PRN Reason: Nausea Last Admin: 07/11/21 11:36 Dose: 8 mg Documented by: Oxycodone HCl (Oxycodone 5 Mg Tab) 5 mg PO Q4H PRN PRN Reason: Pain (moderate 4-6) Saccharomyces Boulardii (Saccharomyces Boulardii (Probiotic) 250 Mg Cap) 250 mg PO BID [facility] Last Admin: 07/11/21 11:37 Dose: 250 mg Documented by: Simvastatin (Simvastatin 40 Mg Tab) 40 mg PO BEDTIME [facility] Tamsulosin HCl (Tamsulosin 0.4 Mg Cap.Er) 0.4 mg PO DAILY [facility] Last Admin: 07/11/21 09:52 Dose: 0.4 mg Documented by: Warfarin Sodium (Pharmacy To Dose - Warfarin) 1 dose .XX ASDIRECTED [facility] Warfarin Sodium (Warfarin 5 Mg Tab) 5 mg PO ONETIME ONE Stop: 07/11/21 14:01 Discontinued Medications Acetaminophen (Acetaminophen 325 Mg Tab) 650 mg PO NOW ONE Stop: 07/10/21 19:36 Last Admin: 07/10/21 19:55 Dose: 650 mg Documented by: Diltiazem HCl (Diltiazem 25 Mg/5 Ml Sdv) 20 mg IVPUSH ONETIME ONE Stop: 07/10/21 23:24 Sodium Chloride (Normal Saline) 1,000 mls @ 200 mls/hr IV .BOLUS ONE Stop: 07/11/21 00:42 Last Admin: 07/10/21 19:56 Dose: 200 mls/hr Documented by: Piperacillin Sod/Tazobactam (Sod 3.375 gm/ Sodium Chloride) 100 mls @ 200 mls/hr IV ONETIME ONE Stop: 07/10/21 21:13 Last Admin: 07/10/21 20:58 Dose: 200 mls/hr Documented by: Peppermint (Peppermint Oil 30 Ml Bottle) Confirm Administered Dose 30 ml .ROUTE .STK-MED ONE Stop: 07/10/21 19:51 Last Admin: 07/10/21 20:50 Dose: Not Given Documented by: Warfarin Sodium (Warfarin 5 Mg Tab) 5 mg PO DAILY@1400 [facility] - Exam Quality Assessment: DVT Prophylaxis. No: Supplemental Oxygen General: No: Alert, Oriented, Cooperative, No Acute Distress HEENT: Pupils Equal, Pupils Reactive, EOMI, Mucous Membr. Moist/[place] Neck: Supple, No JVD, No Thyromegaly Lungs: Clear to Auscultation, Normal Respiratory Effort. No: Crackles, Wheezing Cardiovascular: Regular Rate, Regular Rhythm, No Murmurs GI/Abdominal Exam: Normal Bowel Sounds, Soft, Non-Tender, Other (has colostomy bag with stool ) (Male) Exam: Deferred Back Exam: Normal Inspection, Full Range of Motion Extremities: Normal Inspection, No Pedal Edema Skin: Warm, Dry, Intact Neurological: No New Focal Deficit, Normal Gait, Normal Speech, Strength Equal Bilateral Psy/Mental Status: Alert, Normal Affect, Normal Mood - Patient Data Lab Results Last 24 hrs: Laboratory Results - last 24 hr 07/10/21 07/10/21 07/10/21 Range/Units 19:20 19:20 19:20 WBC 11.2 H (5.0-10.0) 10^3/uL RBC 3.75 L (4.6-6.2) 10^6/uL Hgb 11.3 L D (14.0-18.0) g/dL Hct 35.5 L (40.0-54.0) % MCV 94.7 (80-100) fL MCH 30.1 (27.0-34.0) pg MCHC 31.8 L (33.0-35.0) g/dL Plt Count 251 (150-450) 10^3/uL Neut % (Auto) 81.1 H (42.2-75.2) % Lymph % (Auto) 9.3 L (20.5-50.1) % [place] % (Auto) 9.3 H (2-8) % Eos % (Auto) 0.1 L (1.0-3.0) % Baso % (Auto) 0.2 (0.0-1.0) % PT 29.8 H D (9.0-12.0) SEC INR 3.0 H (0.9-1.2) Sodium (136-145) mmol/L Potassium (3.5-5.1) mmol/L Chloride (98-107) mmol/L Carbon Dioxide (21-32) mmol/L Anion Gap (7-13) mEq/L BUN (7-18) mg/dL Creatinine (0.70-1.30) mg/dL Est Cr Clr Drug Dosing Estimated GFR (MDRD) BUN/Creatinine Ratio (No establ ref range) Glucose (70-99) mg/dL POC Glucose (70-99) mg/dL Lactic Acid (0.4-2.0) mmol/L Calcium (8.5-10.1) mg/dL Magnesium (1.8-2.4) mg/dL Total Bilirubin (0.2-1.0) mg/dL AST (15-37) U/L ALT (16-63) U/L Alkaline Phosphatase (46-116) U/L Troponin I High Sens (<=76) pg/mL B-Natriuretic Peptide (0-100) pg/ml Total Protein (6.4-8.2) g/dL Albumin (3.4-5.0) g/dL Globulin Albumin/Globulin Ratio Amylase (25-115) U/L Lipase (73-393) U/L Urine Color (YELLOW) Urine Appearance (CLEAR) Urine pH (5.0-9.0) Ur Specific [place] (1.005-1.030) Urine Protein (NEGATIVE) Urine Glucose (UA) (NEGATIVE) Urine Ketones (NEGATIVE) Urine Occult Blood (NEGATIVE) Urine Nitrite (NEGATIVE) Urine Bilirubin (NEGATIVE) Urine Urobilinogen (0.2-1.0) mg/dL Ur Leukocyte Esterase (NEGATIVE) Urine RBC (0-5) /HPF Urine WBC (0-5/HPF) /HPF Ur Epithelial Cells (NOT SEEN) /HPF Amorphous Sediment (NOT SEEN) /HPF Urine Bacteria (0-FEW/HPF) /HPF Fine Granular Casts (NOT SEEN) /LPF Digoxin (0.9-2.0) ng/mL Influenza Type A RNA Negative (NEGATIVE) Influenza Type B RNA Negative (NEGATIVE) SARS-CoV-2 RNA ([place]) Negative (NEGATIVE) 07/10/21 07/10/21 07/10/21 Range/Units 19:20 19:20 19:20 WBC (5.0-10.0) 10^3/uL RBC (4.6-6.2) 10^6/uL Hgb (14.0-18.0) g/dL Hct (40.0-54.0) % MCV (80-100) fL MCH (27.0-34.0) pg MCHC (33.0-35.0) g/dL Plt Count (150-450) 10^3/uL Neut % (Auto) (42.2-75.2) % Lymph % (Auto) (20.5-50.1) % [place] % (Auto) (2-8) % Eos % (Auto) (1.0-3.0) % Baso % (Auto) (0.0-1.0) % PT (9.0-12.0) SEC INR (0.9-1.2) Sodium (136-145) mmol/L Potassium (3.5-5.1) mmol/L Chloride (98-107) mmol/L Carbon Dioxide (21-32) mmol/L Anion Gap (7-13) mEq/L BUN (7-18) mg/dL Creatinine (0.70-1.30) mg/dL Est Cr Clr Drug Dosing Estimated GFR (MDRD) BUN/Creatinine Ratio (No establ ref range) Glucose (70-99) mg/dL POC Glucose (70-99) mg/dL Lactic Acid 1.1 (0.4-2.0) mmol/L Calcium (8.5-10.1) mg/dL Magnesium 1.7 L (1.8-2.4) mg/dL Total Bilirubin (0.2-1.0) mg/dL AST (15-37) U/L ALT (16-63) U/L Alkaline Phosphatase (46-116) U/L Troponin I High Sens 11 (<=76) pg/mL B-Natriuretic Peptide 144 H (0-100) pg/ml Total Protein (6.4-8.2) g/dL Albumin (3.4-5.0) g/dL Globulin Albumin/Globulin Ratio Amylase 46 (25-115) U/L Lipase 193 (73-393) U/L Urine Color (YELLOW) Urine Appearance (CLEAR) Urine pH (5.0-9.0) Ur Specific [place] (1.005-1.030) Urine Protein (NEGATIVE) Urine Glucose (UA) (NEGATIVE) Urine Ketones (NEGATIVE) Urine Occult Blood (NEGATIVE) Urine Nitrite (NEGATIVE) Urine Bilirubin (NEGATIVE) Urine Urobilinogen (0.2-1.0) mg/dL Ur Leukocyte Esterase (NEGATIVE) Urine RBC (0-5) /HPF Urine WBC (0-5/HPF) /HPF Ur Epithelial Cells (NOT SEEN) /HPF Amorphous Sediment (NOT SEEN) /HPF Urine Bacteria (0-FEW/HPF) /HPF Fine Granular Casts (NOT SEEN) /LPF Digoxin 1.1 (0.9-2.0) ng/mL Influenza Type A RNA (NEGATIVE) Influenza Type B RNA (NEGATIVE) SARS-CoV-2 RNA ([place]) (NEGATIVE) 07/10/21 07/10/21 07/11/21 Range/Units 19:30 21:20 05:40 WBC (5.0-10.0) 10^3/uL RBC (4.6-6.2) 10^6/uL Hgb (14.0-18.0) g/dL Hct (40.0-54.0) % MCV (80-100) fL MCH (27.0-34.0) pg MCHC (33.0-35.0) g/dL Plt Count (150-450) 10^3/uL Neut % (Auto) (42.2-75.2) % Lymph % (Auto) (20.5-50.1) % [place] % (Auto) (2-8) % Eos % (Auto) (1.0-3.0) % Baso % (Auto) (0.0-1.0) % PT 23.8 H (9.0-12.0) SEC INR 2.4 H (0.9-1.2) Sodium 135 L (136-145) mmol/L Potassium 4.2 (3.5-5.1) mmol/L Chloride 98 (98-107) mmol/L Carbon Dioxide 25 (21-32) mmol/L Anion Gap 16.2 H (7-13) mEq/L BUN 17 (7-18) mg/dL Creatinine 1.52 H (0.70-1.30) mg/dL Est Cr Clr Drug Dosing TNP Estimated GFR (MDRD) 45 BUN/Creatinine Ratio 11.2 (No establ ref range) Glucose 195 H (70-99) mg/dL POC Glucose (70-99) mg/dL Lactic Acid (0.4-2.0) mmol/L Calcium 8.3 L (8.5-10.1) mg/dL Magnesium (1.8-2.4) mg/dL Total Bilirubin 0.7 (0.2-1.0) mg/dL AST 24 (15-37) U/L ALT 19 (16-63) U/L Alkaline Phosphatase 79 (46-116) U/L Troponin I High Sens (<=76) pg/mL B-Natriuretic Peptide (0-100) pg/ml Total Protein 7.4 (6.4-8.2) g/dL Albumin 2.8 L (3.4-5.0) g/dL Globulin 4.6 Albumin/Globulin Ratio 0.61 Amylase (25-115) U/L Lipase (73-393) U/L Urine Color Dark yellow (YELLOW) Urine Appearance Slightly cloudy (CLEAR) Urine pH 6.0 (5.0-9.0) Ur Specific [place] >= 1.030 (1.005-1.030) Urine Protein >=300 H (NEGATIVE) Urine Glucose (UA) 100 H (NEGATIVE) Urine Ketones Negative (NEGATIVE) Urine Occult Blood Negative (NEGATIVE) Urine Nitrite Negative (NEGATIVE) Urine Bilirubin Negative (NEGATIVE) Urine Urobilinogen 0.2 (0.2-1.0) mg/dL Ur Leukocyte Esterase Negative (NEGATIVE) Urine RBC Not seen (0-5) /HPF Urine WBC 40-50 H (0-5/HPF) /HPF Ur Epithelial Cells Moderate H (NOT SEEN) /HPF Amorphous Sediment Few (NOT SEEN) /HPF Urine Bacteria Many H (0-FEW/HPF) /HPF Fine Granular Casts Many H (NOT SEEN) /LPF Digoxin (0.9-2.0) ng/mL Influenza Type A RNA (NEGATIVE) Influenza Type B RNA (NEGATIVE) SARS-CoV-2 RNA (SHAR[place]) (NEGATIVE) 07/11/21 Range/Units 08:19 WBC (5.0-10.0) 10^3/uL RBC (4.6-6.2) 10^6/uL Hgb (14.0-18.0) g/dL Hct (40.0-54.0) % MCV (80-100) fL MCH (27.0-34.0) pg MCHC (33.0-35.0) g/dL Plt Count (150-450) 10^3/uL Neut % (Auto) (42.2-75.2) % Lymph % (Auto) (20.5-50.1) % [place] % (Auto) (2-8) % Eos % (Auto) (1.0-3.0) % Baso % (Auto) (0.0-1.0) % PT (9.0-12.0) SEC INR (0.9-1.2) Sodium (136-145) mmol/L Potassium (3.5-5.1) mmol/L Chloride (98-107) mmol/L Carbon Dioxide (21-32) mmol/L Anion Gap (7-13) mEq/L BUN (7-18) mg/dL Creatinine (0.70-1.30) mg/dL Est Cr Clr Drug Dosing Estimated GFR (MDRD) BUN/Creatinine Ratio (No establ ref range) Glucose (70-99) mg/dL POC Glucose 135 H (70-99) mg/dL Lactic Acid (0.4-2.0) mmol/L Calcium (8.5-10.1) mg/dL Magnesium (1.8-2.4) mg/dL Total Bilirubin (0.2-1.0) mg/dL AST (15-37) U/L ALT (16-63) U/L Alkaline Phosphatase (46-116) U/L Troponin I High Sens (<=76) pg/mL B-Natriuretic Peptide (0-100) pg/ml Total Protein (6.4-8.2) g/dL Albumin (3.4-5.0) g/dL Globulin Albumin/Globulin Ratio Amylase (25-115) U/L Lipase (73-393) U/L Urine Color (YELLOW) Urine Appearance (CLEAR) Urine pH (5.0-9.0) Ur Specific [place] (1.005-1.030) Urine Protein (NEGATIVE) Urine Glucose (UA) (NEGATIVE) Urine Ketones (NEGATIVE) Urine Occult Blood (NEGATIVE) Urine Nitrite (NEGATIVE) Urine Bilirubin (NEGATIVE) Urine Urobilinogen (0.2-1.0) mg/dL Ur Leukocyte Esterase (NEGATIVE) Urine RBC (0-5) /HPF Urine WBC (0-5/HPF) /HPF Ur Epithelial Cells (NOT SEEN) /HPF Amorphous Sediment (NOT SEEN) /HPF Urine Bacteria (0-FEW/HPF) /HPF Fine Granular Casts (NOT SEEN) /LPF Digoxin (0.9-2.0) ng/mL Influenza Type A RNA (NEGATIVE) Influenza Type B RNA (NEGATIVE) SARS-CoV-2 RNA ([place]AR[place]INE) (NEGATIVE) Result Diagrams: 07/10/21 19:20 07/10/21 19:30 Patrick Results Last 24 hrs: Microbiology 07/10/21 19:20 Anaerobic Blood Culture - Final Blood - Arm, Right Sepsis Event Note - Evaluation Sepsis Screening Result: No Definite Risk - Focused Exam Vital Signs: Vital Signs Temp Pulse Pulse Resp BP BP Pulse Ox 07/11/21 10:04 119/78 07/11/21 09:51 103 H 119/70 07/11/21 09:50 103 H 07/11/21 07:00 37.1 C 103 H 18 119/70 98 07/11/21 03:44 37.3 C 112 H 16 124/54 L 97 07/10/21 23:44 37.6 C 94 14 97/45 L 98 - Problem List Review Problem List Initiated/Reviewed/Updated: Yes - My Orders Last 24 Hours: My Active Orders 07/11/21 10:00 Magnesium Oxide 250 mg PO DAILY 07/11/21 11:00 Pharmacy to Dose - Warfarin 1 dose .XX ASDIRECTED 07/11/21 Lunch Soft Diet [DIET] 07/11/21 14:00 Warfarin [Coumadin] 5 mg PO ONETIME ONE - Plan Plan:: This is a 75-year-old male admitted with fever documented temperature of 103, abdominal pain, weight loss, and poor appetite. Impression and plan: 1. Fever: Etiology not clear here his WBC is elevated and also had temperature, blood culture urine culture if done follow the culture report and patient is now empirically getting treated with Zosyn 3.375 mg every 6 hours. 2. Possible urinary tract infection: Follow urine culture and possibility of urosepsis with urine WBC 40-50 and many bacteria and granular cast we will continue the current antibiotics Zosyn for now. 3. Loose stool: Etiology not clear here again and the stool culture C. difficile ova parasites has been sent out and will follow Atrial fibrillation: The rate is controlled now and he is on digoxin 187.5 mcg p.o. daily and the digoxin level is checked and it is acceptable we will continue the Coumadin and the level is followed by the pharmacy. 5. Hypertension: His blood pressure is acceptable and we will continue him with Coreg 12.5 twice a day. 6. BPH the patient has chronic enlarged prostate with lower urinary tract symptoms and he is on Flomax 0.4 mg p.o. daily. Hyperlipidemia his hyper lipid panel is a stable and we will continue him with simvastatin at 40 mg daily. 8. Diabetes type 2: His glimepiride is now on hold in the hospital and he is on insulin with sliding scale coverage the patient currently 1 liquid diet which is advanced now to pured type of diet to see how he tolerates. 9. Hyperuricemia: The patient is on allopurinol at 100 mg daily and will continue that and it has been started by oncology. GI prophylaxis: We will continue him with Protonix. DVT prophylaxis: Continue him on Coumadin, INR on target
[2021-07-11] MEDS ORDERED: Warfarin 5 MG Tab PO SCH (14:00)
[2021-07-11] MEDS ORDERED: Warfarin 5 MG Tab PO ONE (14:00)
[2021-07-11] MEDS: Simvastatin 40 MG Tab PO SCH (21:11)
[2021-07-11] MEDS ORDERED: VANCOmycin 1.5 GM/300 ML 1.5 GM in Premix Bag 1 BAG IV ONE (22:32)
[2021-07-12] MEDS ORDERED: Sodium Chloride 0.9% 500 ML IV ONE (00:27)
[2021-07-12] MEDS: Acetaminophen 325 MG Tab PO PRN ×4 (01:33→21:29)
[2021-07-12] MEDS: Piperacillin/Tazobactam 3.375 GM in Sodium Chloride 0.9% 100 ML IV SCH ×4 (02:51→21:33)
[2021-07-12] MEDS: Dextrose 5%-0.9% NaCl 1,000 ML IV SCH ×2 (03:30→18:17)
[2021-07-12] MEDS: Cyanocobalamin (Vitamin B12) 1,000 MCG Tab PO SCH (08:44)
[2021-07-12] MEDS: Allopurinol 100 MG Tab PO SCH (08:45)
[2021-07-12] MEDS: Furosemide 20 MG Tab PO SCH (08:45)
[2021-07-12] MEDS: Ferrous Sulfate 325 MG Tab PO SCH (08:45)
[2021-07-12] MEDS: Tamsulosin 0.4 MG Cap.ER PO SCH (08:45)
[2021-07-12] MEDS: Famotidine 20 MG Tab PO SCH (08:45)
[2021-07-12] MEDS: Cholecalciferol (Vitamin D3) 25 MCG Tab PO SCH (08:46)
[2021-07-12] MEDS: Saccharomyces Boulardii (Probiotic) 250 MG Cap PO SCH ×2 (08:46→21:29)
[2021-07-12] MEDS: Insulin Lispro 100 Units/ML 3 ML Vial SUBCUT SCH ×3 (08:47→17:43)
[2021-07-12] MEDS: Digoxin 125 MCG Tab PO SCH (08:50)
[2021-07-12] MEDS: Carvedilol 6.25 MG Tab PO SCH ×2 (09:43→18:23)
[2021-07-12] MEDS: Midodrine 2.5 MG Tab PO SCH ×2 (12:17→16:13)
[2021-07-12] MEDS ORDERED: Warfarin 5 MG Tab PO ONE (14:00)
--- NOTE | 2021-07-12 15:12 | PCM.PN ---
- General Info Date of Service: 07/12/21 Admission Dx/Problem (Free Text): The patient was admitted with lower abdominal pain and fever, with temp of 103, possible colitis, weakness, poor appetite, and weight loss. The patient has past medical history which is significant for diabetes, atrial fibrillation on chronic anticoagulation hypertension, hyperlipidemia, BPH, colon cancer, status post resection 112 3 at [facility] in [facility] he was discharged from [facility] on 06/27/2021 and since then he is at home but has poor appetite his colon cancer is at least stage III and he underwent chemotherapy a nd radiation therapy he has received 25 sessions of radiation therapy the patient has a colostomy bag and as per the output from the colostomy is green which is not the usual color and after admission. Stool was sent for C. difficile ova and parasites and empirically started him on metronidazole. C, diff negative and stopped metronidazole, Patient over the night had some elevated temperature and was also hypotensive, started vancomycin and also given IV fluids with that blood pressure get better, today when he was seen on rounds, he feels good, no temperature recorded during the day and he feels much better and ate all his meals for the breakfast. Functional Status: Reports: Pain Controlled, Tolerating Diet, Urinating - Review of Systems General: Reports: Weakness, Appetite (better). Denies: Fever, Chills Pulmonary: Denies: Shortness of Breath, Cough, Sputum, Wheezing Cardiovascular: Denies: Chest Pain, Dyspnea on Exertion, Edema Gastrointestinal: Denies: Abdominal Pain, Melena, Nausea, Vomiting Genitourinary: Denies: Dysuria, Burning, Urgency, Flank Pain Musculoskeletal: Reports: Hand Pain. Denies: Neck Pain, Joint Swelling Skin: Denies: Cyanosis, Jaundice, Bruising, Pruritis, Rash Neurological: Denies: Confusion, Headache, Tremors Psychiatric: Denies: Confusion, Anxiety - Patient Data Vitals - Most Recent: Last Vital Signs Temp 37.7 C 07/12/21 14:50 Pulse 92 07/12/21 13:00 Resp 20 07/12/21 13:00 BP 116/63 07/12/21 13:00 Pulse Ox 98 07/12/21 13:00 Weight - Most Recent: 83.2 kg I&O - Last 24 Hours: Intake & Output 07/12/21 07/12/21 07/12/21 06:59 14:59 22:59 Intake Total 500 Balance 500 Lab Results Last 24 Hours: Laboratory Results - last 24 hr 07/11/21 07/11/21 07/12/21 Range/Units 16:42 21:11 06:12 PT (9.0-12.0) SEC INR (0.9-1.2) Sodium 141 (136-145) mmol/L Potassium 4.0 (3.5-5.1) mmol/L Chloride 104 (98-107) mmol/L Carbon Dioxide 25 (21-32) mmol/L Anion Gap 16.0 H (7-13) mEq/L BUN 21 H (7-18) mg/dL Creatinine 2.36 H (0.70-1.30) mg/dL Est Cr Clr Drug Dosing 24.51 mL/min Estimated GFR (MDRD) 27 Glucose 134 H (70-99) mg/dL POC Glucose 185 H 113 H (70-99) mg/dL Calcium 8.1 L (8.5-10.1) mg/dL 07/12/21 07/12/21 07/12/21 Range/Units 06:12 07:57 11:51 PT 26.8 H (9.0-12.0) SEC INR 2.7 H (0.9-1.2) Sodium (136-145) mmol/L Potassium (3.5-5.1) mmol/L Chloride (98-107) mmol/L Carbon Dioxide (21-32) mmol/L Anion Gap (7-13) mEq/L BUN (7-18) mg/dL Creatinine (0.70-1.30) mg/dL Est Cr Clr Drug Dosing mL/min Estimated GFR (MDRD) Glucose (70-99) mg/dL POC Glucose 143 H 188 H (70-99) mg/dL Calcium (8.5-10.1) mg/dL Patrick Results Last 24 Hours: Microbiology 07/11/21 11:45 Stool Culture - Preliminary Stool / Feces - Stool, Liquid NORMAL ENTERIC FENG 1 DAY 07/10/21 21:20 Urine Culture - Preliminary Urine, Voided MIXED FENG SUGGESTIVE OF CONTAMINATION. 07/10/21 19:30 Aerobic Blood Culture - Preliminary Blood - Arm, Left NO GROWTH AFTER 1 DAY Anaerobic Blood Culture - Preliminary NO GROWTH AFTER 1 DAY 07/10/21 19:20 Aerobic Blood Culture - Preliminary Blood - Arm, Right NO GROWTH AFTER 1 DAY Anaerobic Blood Culture - Final 07/11/21 11:45 Stool Occult Blood (PATRICK) - Final Stool / Feces Med Orders - Current: Current Medications Acetaminophen (Acetaminophen 325 Mg Tab) 650 mg PO Q4H PRN PRN Reason: Pain/Fever Last Admin: 07/12/21 14:20 Dose: 650 mg Documented by: Allopurinol (Allopurinol 100 Mg Tab) 100 mg PO DAILY [facility] Last Admin: 07/12/21 08:45 Dose: 100 mg Documented by: Carvedilol (Carvedilol 6.25 Mg Tab) 12.5 mg PO BIDMEALS [facility] Last Admin: 07/12/21 09:43 Dose: Not Given Documented by: Cholecalciferol (Cholecalciferol (Vitamin D3) 25 Mcg Tab) 25 mcg PO DAILY [facility] Last Admin: 07/12/21 08:46 Dose: 25 mcg Documented by: Cyanocobalamin (Cyanocobalamin (Vitamin B12) 1,000 Mcg Tab) 500 mcg PO DAILY [facility] Last Admin: 07/12/21 08:44 Dose: 500 mcg Documented by: Dextrose/Water (50% Dextrose In Water 50 Ml Syringe) 50 ml IVPUSH Q15M PRN PRN Reason: Hypoglycemia Digoxin (Digoxin 125 Mcg Tab) 187.5 mcg PO DAILY@0800 [facility] Last Admin: 07/12/21 08:50 Dose: 187.5 mcg Documented by: Famotidine (Famotidine 20 Mg Tab) 20 mg PO DAILY [facility] Last Admin: 07/12/21 08:45 Dose: 20 mg Documented by: Ferrous Sulfate (Ferrous Sulfate 325 Mg Tab) 325 mg PO DAILY [facility] Last Admin: 07/12/21 08:45 Dose: 325 mg Documented by: Furosemide (Furosemide 20 Mg Tab) 20 mg PO DAILY [facility] Last Admin: 07/12/21 08:45 Dose: 20 mg Documented by: Glucagon (Glucagon,Human Recombinant 1 Mg Vial) 1 mg IM Q15M PRN PRN Reason: Hypoglycemia Piperacillin Sod/Tazobactam (Sod 3.375 gm/ Sodium Chloride) 100 mls @ 200 mls/hr IV Q6H [facility] Last Infusion: 07/12/21 15:03 Dose: Infused Documented by: Vancomycin HCl 1.5 gm/ Premix 300 mls @ 200 mls/hr IV Q24H [facility] Dextrose/Sodium Chloride (Dextrose 5%-Normal Saline) 1,000 mls @ 75 mls/hr IV ASDIRECTED [facility] Last Admin: 07/12/21 03:30 Dose: 75 mls/hr Documented by: Insulin Human Lispro (Insulin Lispro 100 Units/Ml 3 Ml Vial) 0 unit SUBCUT WITHMEALSANDBED [facility]; Protocol Last Admin: 07/12/21 12:17 Dose: 2 units Documented by: Magnesium Oxide (Magnesium Oxide 250 Mg Tab) 250 mg PO DAILY [facility] Last Admin: 07/12/21 08:45 Dose: 250 mg Documented by: Midodrine (Midodrine 2.5 Mg Tab) 5 mg PO TIDAC [facility] Last Admin: 07/12/21 12:17 Dose: 5 mg Documented by: Ondansetron HCl (Ondansetron 4 Mg Tab.Dis) 8 mg PO Q8H PRN PRN Reason: Nausea Last Admin: 07/11/21 11:36 Dose: 8 mg Documented by: Oxycodone HCl (Oxycodone 5 Mg Tab) 5 mg PO Q4H PRN PRN Reason: Pain (moderate 4-6) Saccharomyces Boulardii (Saccharomyces Boulardii (Probiotic) 250 Mg Cap) 250 mg PO BID [facility] Last Admin: 07/12/21 08:46 Dose: 250 mg Documented by: Simvastatin (Simvastatin 40 Mg Tab) 40 mg PO BEDTIME [facility] Last Admin: 07/11/21 21:11 Dose: 40 mg Documented by: Tamsulosin HCl (Tamsulosin 0.4 Mg Cap.Er) 0.4 mg PO DAILY [facility] Last Admin: 07/12/21 08:45 Dose: 0.4 mg Documented by: Vancomycin HCl (Pharmacy To Dose - Vancomycin) 1 dose .XX ASDIRECTED [facility] Warfarin Sodium (Pharmacy To Dose - Warfarin) 1 dose .XX ASDIRECTED [facility] Discontinued Medications Acetaminophen (Acetaminophen 325 Mg Tab) 650 mg PO NOW ONE Stop: 07/10/21 19:36 Last Admin: 07/10/21 19:55 Dose: 650 mg Documented by: Acetaminophen (Acetaminophen 325 Mg Tab) 650 mg PO Q6H PRN PRN Reason: Pain/Fever Last Admin: 07/11/21 21:21 Dose: 650 mg Documented by: Diltiazem HCl (Diltiazem 25 Mg/5 Ml Sdv) 20 mg IVPUSH ONETIME ONE Stop: 07/10/21 23:24 Last Admin: 07/11/21 11:58 Dose: Not Given Documented by: Sodium Chloride (Normal Saline) 1,000 mls @ 200 mls/hr IV .BOLUS ONE Stop: 07/11/21 00:42 Last Admin: 07/10/21 19:56 Dose: 200 mls/hr Documented by: Piperacillin Sod/Tazobactam (Sod 3.375 gm/ Sodium Chloride) 100 mls @ 200 mls/hr IV ONETIME ONE Stop: 07/10/21 21:13 Last Admin: 07/10/21 20:58 Dose: 200 mls/hr Documented by: Vancomycin HCl 1.5 gm/ Premix 300 mls @ 200 mls/hr IV ONETIME ONE Stop: 07/12/21 00:01 Last Admin: 07/11/21 23:16 Dose: 200 mls/hr Documented by: Vancomycin HCl 1,500 mg/ (Sodium Chloride) 500 mls @ 333.333 mls/hr IV Q24H [facility] Last Admin: 07/12/21 00:44 Dose: Not Given Documented by: Sodium Chloride (Normal Saline) 500 mls @ 999 mls/hr IV ONETIME ONE Stop: 07/12/21 00:57 Last Admin: 07/12/21 00:45 Dose: 999 mls/hr Documented by: Losartan Potassium (Losartan 25 Mg Tab) 25 mg PO Q48H [facility] Last Admin: 07/11/21 10:04 Dose: 25 mg Documented by: Peppermint (Peppermint Oil 30 Ml Bottle) Confirm Administered Dose 30 ml .ROUTE .STK-MED ONE Stop: 07/10/21 19:51 Last Admin: 07/10/21 20:50 Dose: Not Given Documented by: Warfarin Sodium (Warfarin 5 Mg Tab) 5 mg PO DAILY@1400 [facility] Warfarin Sodium (Warfarin 5 Mg Tab) 5 mg PO ONETIME ONE Stop: 07/11/21 14:01 Last Admin: 07/11/21 14:24 Dose: 5 mg Documented by: Warfarin Sodium (Warfarin 5 Mg Tab) 5 mg PO ONETIME ONE Stop: 07/12/21 14:01 Last Admin: 07/12/21 14:20 Dose: 5 mg Documented by: - Exam Quality Assessment: Supplemental Oxygen, Urine Catheter, DVT Prophylaxis. No: Central Line/PICC General: Alert, Oriented, Cooperative, No Acute Distress HEENT: Pupils Equal, Pupils Reactive, EOMI, Mucous Membr. Moist/Emet Lungs: Clear to Auscultation, Normal Respiratory Effort Cardiovascular: Regular Rate, Regular Rhythm, Murmurs GI/Abdominal Exam: Normal Bowel Sounds, Soft, Non-Tender, No Distention (Male) Exam: Deferred Back Exam: Normal Inspection Extremities: Normal Inspection, Non-Tender, No Pedal Edema Skin: Warm, Dry, Intact Neurological: No New Focal Deficit Psy/Mental Status: Alert, Normal Affect, Normal Mood - Patient Data Lab Results Last 24 hrs: Laboratory Results - last 24 hr 07/11/21 07/11/21 07/12/21 Range/Units 16:42 21:11 06:12 PT (9.0-12.0) SEC INR (0.9-1.2) Sodium 141 (136-145) mmol/L Potassium 4.0 (3.5-5.1) mmol/L Chloride 104 (98-107) mmol/L Carbon Dioxide 25 (21-32) mmol/L Anion Gap 16.0 H (7-13) mEq/L BUN 21 H (7-18) mg/dL Creatinine 2.36 H (0.70-1.30) mg/dL Est Cr Clr Drug Dosing 24.51 mL/min Estimated GFR (MDRD) 27 Glucose 134 H (70-99) mg/dL POC Glucose 185 H 113 H (70-99) mg/dL Calcium 8.1 L (8.5-10.1) mg/dL 07/12/21 07/12/21 07/12/21 Range/Units 06:12 07:57 11:51 PT 26.8 H (9.0-12.0) SEC INR 2.7 H (0.9-1.2) Sodium (136-145) mmol/L Potassium (3.5-5.1) mmol/L Chloride (98-107) mmol/L Carbon Dioxide (21-32) mmol/L Anion Gap (7-13) mEq/L BUN (7-18) mg/dL Creatinine (0.70-1.30) mg/dL Est Cr Clr Drug Dosing mL/min Estimated GFR (MDRD) Glucose (70-99) mg/dL POC Glucose 143 H 188 H (70-99) mg/dL Calcium (8.5-10.1) mg/dL Result Diagrams: 07/10/21 19:20 07/12/21 06:12 Patrick Results Last 24 hrs: Microbiology 07/11/21 11:45 Stool Culture - Preliminary Stool / Feces - Stool, Liquid NORMAL ENTERIC FENG 1 DAY 07/10/21 21:20 Urine Culture - Preliminary Urine, Voided MIXED FENG SUGGESTIVE OF CONTAMINATION. 07/10/21 19:30 Aerobic Blood Culture - Preliminary Blood - Arm, Left NO GROWTH AFTER 1 DAY Anaerobic Blood Culture - Preliminary NO GROWTH AFTER 1 DAY 07/10/21 19:20 Aerobic Blood Culture - Preliminary Blood - Arm, Right NO GROWTH AFTER 1 DAY Anaerobic Blood Culture - Final 07/11/21 11:45 Stool Occult Blood (PATRICK) - Final Stool / Feces Sepsis Event Note - Evaluation Sepsis Screening Result: Possible Sepsis Risk - Focused Exam Vital Signs: Vital Signs Temp Temp Pulse Pulse Resp BP BP 07/12/21 14:50 37.7 C 07/12/21 14:20 37.9 C 07/12/21 13:00 37.2 C 92 20 116/63 07/12/21 09:43 93 97/94 H 07/12/21 09:01 37.3 C 93 20 07/12/21 08:50 93 07/12/21 06:21 36.9 C 07/12/21 05:53 37.2 C 100 20 07/12/21 05:51 37.2 C 07/12/21 04:00 36.8 C 92 18 BP Pulse Ox 07/12/21 14:50 07/12/21 14:20 07/12/21 13:00 98 07/12/21 09:43 07/12/21 09:01 98/54 L 97 07/12/21 08:50 07/12/21 06:21 07/12/21 05:53 89/45 L 96 07/12/21 05:51 07/12/21 04:00 93/55 L 97 - Problem List Review Problem List Initiated/Reviewed/Updated: Yes - My Orders Last 24 Hours: My Active Orders 07/11/21 16:47 OT Evaluation and Treatment [CONS] Routine PT Evaluation and Treatment [CONS] Routine 07/11/21 22:45 Pharmacy to Dose - Vancomycin 1 dose .XX ASDIRECTED 07/12/21 01:28 Acetaminophen [TylenoL] 650 mg PO Q4H PRN 07/12/21 02:45 Dextrose 5%-0.9% NaCl [Dextrose 5%-Normal Saline] 1,000 ml IV ASDIRECTED 07/12/21 11:00 Midodrine 5 mg PO TIDAC 07/12/21 23:00 VANCOmycin 1.5 GM/300 ML 1.5 gm Premix Bag 1 bag IV Q24H 07/13/21 09:14 INR,PT,PROTHROMBIN TIME [COAG] DAILY 07/13/21 22:30 VANCOMYCIN TROUGH [CHEM] Timed 07/14/21 09:14 INR,PT,PROTHROMBIN TIME [COAG] DAILY 07/15/21 09:14 INR,PT,PROTHROMBIN TIME [COAG] DAILY 07/16/21 09:14 INR,PT,PROTHROMBIN TIME [COAG] DAILY 07/17/21 09:14 INR,PT,PROTHROMBIN TIME [COAG] DAILY 07/18/21 09:14 INR,PT,PROTHROMBIN TIME [COAG] DAILY - Plan Plan:: This is a 75-year-old male admitted with fever documented temperature of 103, abdominal pain, weight loss, and poor appetite. Impression and plan: 1. Fever: Etiology not clear here his WBC is elevated and also had temperature, blood culture urine culture done and so far no growth, and patient is now empirically getting treated with Zosyn 3.375 mg every 6 hours and also started him on Vancomycin, and discussed with pharmacy to check vancomycin random level before re-dosing. 2. Possible urinary tract infection: Follow urine culture and possibility of urosepsis with urine WBC 40-50 and many bacteria and granular cast we will continue the current antibiotics Zosyn for now. 3. Loose stool: Etiology not clear here again and the stool culture is negative 4. Atrial fibrillation: The rate is controlled now and he is on digoxin 187.5 mcg p.o. daily and the digoxin level is checked and it is acceptable we will continue the Coumadin and the level is followed by the pharmacy. 5. Hypertension: His blood pressure is acceptable and we will will decrease Coreg to 6.25 mg 2 times a day and stop the Coreg [ was at 12.5 twice a day.] We will also start him on, midodrine 5 mg 3 times a day. His oral intake is poor and we will continue him with D5 NS at 75 mL/h. We will also stop losartan he was taking at 25 mg every other day. 6. BPH the patient has chronic enlarged prostate with lower urinary tract s ymptoms and he is on Flomax 0.4 mg p.o. daily. 7. Hyperlipidemia his hyper lipid panel is a stable and we will continue him with simvastatin at 40 mg daily. 8. Diabetes type 2: His glimepiride is now on hold in the hospital and he is on insulin with sliding scale coverage the patient currently 1 liquid diet which is advanced now to pured type of diet to see how he tolerates. 9. Hyperuricemia: The patient is on allopurinol at 100 mg daily and will continue that and it has been started by oncology. 10. GLENN: The etiology likely had from poor oral intake, relative hypotension, and infection of unknown origin, possible AIN from antibiotics use, and will stop the losartan which he was taking at 25 mg every other day. We will start him on IV fluids D5 NS at 75 mL/h. Continue I and O recording. BMP again in the morning. GI prophylaxis: We will continue him with Protonix. DVT prophylaxis: Continue him on Coumadin, INR on target
[2021-07-12] MEDS: Simvastatin 40 MG Tab PO SCH (21:29)
[2021-07-12] MEDS: VANCOmycin 1.5 GM/300 ML 1.5 GM in Premix Bag 1 BAG IV SCH (22:18)
[2021-07-13] MEDS: Insulin Lispro 100 Units/ML 3 ML Vial SUBCUT SCH ×5 (00:06→22:16)
[2021-07-13] MEDS: Piperacillin/Tazobactam 3.375 GM in Sodium Chloride 0.9% 100 ML IV SCH ×4 (03:23→22:20)
[2021-07-13 06:45] LABS: ANION GAP 19.1 mEq/L (7-13)
[2021-07-13] MEDS: Midodrine 2.5 MG Tab PO SCH ×3 (07:39→15:34)
[2021-07-13] MEDS: Saccharomyces Boulardii (Probiotic) 250 MG Cap PO SCH ×2 (08:19→22:12)
[2021-07-13] MEDS: Furosemide 20 MG Tab PO SCH (08:19)
[2021-07-13] MEDS: Cholecalciferol (Vitamin D3) 25 MCG Tab PO SCH (08:19)
[2021-07-13] MEDS: Ferrous Sulfate 325 MG Tab PO SCH (08:19)
[2021-07-13] MEDS: Tamsulosin 0.4 MG Cap.ER PO SCH (08:20)
[2021-07-13] MEDS: Famotidine 20 MG Tab PO SCH (08:20)
[2021-07-13] MEDS: Digoxin 125 MCG Tab PO SCH (08:20)
[2021-07-13] MEDS: Cyanocobalamin (Vitamin B12) 1,000 MCG Tab PO SCH (08:20)
[2021-07-13] MEDS: Acetaminophen 325 MG Tab PO PRN ×2 (08:21→17:27)
[2021-07-13] MEDS: Allopurinol 100 MG Tab PO SCH (08:21)
[2021-07-13] MEDS: Carvedilol 6.25 MG Tab PO SCH ×2 (08:21→17:24)
[2021-07-13] MEDS: Dextrose 5%-0.9% NaCl 1,000 ML IV SCH (09:08)
--- NOTE | 2021-07-13 11:47 | PCM.PN ---
- General Info Date of Service: 07/13/21 Admission Dx/Problem (Free Text): The patient was admitted with lower abdominal pain and fever, with temp of 103, possible colitis, weakness, poor appetite, and weight loss. The patient has past medical history which is significant for diabetes, atrial fibrillation on chronic anticoagulation hypertension, hyperlipidemia, BPH, cancer of Colon and rectum, status post resection 06/07 at [facility] in [facility] he was discharged from [facility] on 06/27/2021 and since then he is at home but has poor appetite ,his colon cancer is at least stage III and he underwent chemotherapy and radiation therapy he has received 25 sessions of radiation therapy. the patient has a colostomy bag and as per the output from the colostomy is green which is not the usual color and after admission. Stool was sent for C. difficile and it is negative, stopped empiric treatment with metronidazole. Patient over the night had some elevated temperature and was also hypotensive, on vancomycin , blood pressure get better, today - he was seen on rounds, he does not feel good, feels weak, and appetite is not good today Subjective Update: Today the patient was seen in room in rounds, he is not feeling good today, and he on pured diet ,and has no nausea ,vomiting, or or any dysuria. He is intermittently spiking temperature Functional Status: Reports: Pain Controlled, Tolerating Diet, Ambulating (with assitance from bed to chair, but feels weaker today), Urinating - Review of Systems General: Reports: Fever, Weakness, Fatigue, Malaise, Chills, Appetite (poor). Denies: Night Sweats HEENT: Reports: Sinus Congestion, Visual Changes. Denies: Headaches Pulmonary: Denies: Shortness of Breath, Cough, Sputum, Wheezing Cardiovascular: Denies: Chest Pain, Palpitations, Lightheadedness Gastrointestinal: Reports: Decreased Appetite, Vomiting. Denies: Abdominal Pain, Difficulty Swallowing, Nausea Genitourinary: Denies: Dysuria, Burning, Urgency, Flank Pain Musculoskeletal: Denies: Neck Pain, Foot Pain, Joint Pain Skin: Denies: Cyanosis, Jaundice, Bruising, Pruritis, Rash Neurological: Denies: Confusion, Numbness, Tremors - Patient Data Vitals - Most Recent: Last Vital Signs Temp 37.5 C 07/13/21 08:51 Pulse 101 H 07/13/21 08:21 Resp 20 07/13/21 07:32 BP 145/68 H 07/13/21 08:21 Pulse Ox 95 07/13/21 07:32 Weight - Most Recent: 81.828 kg I&O - Last 24 Hours: Intake & Output 07/12/21 07/13/21 07/13/21 22:59 06:59 14:59 Intake Total 554 1128 200 Output Total 250 300 Balance 304 828 200 Lab Results Last 24 Hours: Laboratory Results - last 24 hr 07/12/21 07/12/21 07/12/21 Range/Units 11:51 17:03 21:23 PT (9.0-12.0) SEC INR (0.9-1.2) Sodium (136-145) mmol/L Potassium (3.5-5.1) mmol/L Chloride (98-107) mmol/L Carbon Dioxide (21-32) mmol/L Anion Gap (7-13) mEq/L BUN (7-18) mg/dL Creatinine (0.70-1.30) mg/dL Est Cr Clr Drug Dosing mL/min Estimated GFR (MDRD) Glucose (70-99) mg/dL POC Glucose 188 H 148 H 121 H (70-99) mg/dL Calcium (8.5-10.1) mg/dL Phosphorus (2.6-4.7) mg/dL 07/13/21 07/13/21 07/13/21 Range/Units 06:20 06:20 07:22 PT 37.3 H D (9.0-12.0) SEC INR 3.8 H (0.9-1.2) Sodium 140 (136-145) mmol/L Potassium 4.1 (3.5-5.1) mmol/L Chloride 104 (98-107) mmol/L Carbon Dioxide 21 (21-32) mmol/L Anion Gap 19.1 H (7-13) mEq/L BUN 22 H (7-18) mg/dL Creatinine 2.67 H (0.70-1.30) mg/dL Est Cr Clr Drug Dosing 21.66 mL/min Estimated GFR (MDRD) 23 Glucose 109 H (70-99) mg/dL POC Glucose 108 H (70-99) mg/dL Calcium 8.2 L (8.5-10.1) mg/dL Phosphorus 4.2 (2.6-4.7) mg/dL Patrick Results Last 24 Hours: Microbiology 07/11/21 11:45 Clostridioides difficile (PCR) - Final Stool / Feces 07/10/21 21:20 Urine Culture - Final Urine, Voided MIXED CHARISSA SUGGESTIVE OF CONTAMINATION. 07/11/21 11:45 Stool Culture - Preliminary Stool / Feces - Stool, Liquid NORMAL ENTERIC CHARISSA 2 DAYS 07/10/21 19:30 Aerobic Blood Culture - Preliminary Blood - Arm, Left NO GROWTH AFTER 2 DAYS Anaerobic Blood Culture - Preliminary NO GROWTH AFTER 2 DAYS 07/10/21 19:20 Aerobic Blood Culture - Preliminary Blood - Arm, Right NO GROWTH AFTER 2 DAYS Anaerobic Blood Culture - Final Med Orders - Current: Current Medications Acetaminophen (Acetaminophen 325 Mg Tab) 650 mg PO Q4H PRN PRN Reason: Pain/Fever Last Admin: 07/13/21 08:21 Dose: 650 mg Documented by: Allopurinol (Allopurinol 100 Mg Tab) 100 mg PO DAILY [facility] Last Admin: 07/13/21 08:21 Dose: 100 mg Documented by: Carvedilol (Carvedilol 6.25 Mg Tab) 6.25 mg PO BIDMEALS [facility] Last Admin: 07/13/21 08:21 Dose: 6.25 mg Documented by: Cholecalciferol (Cholecalciferol (Vitamin D3) 25 Mcg Tab) 25 mcg PO DAILY [facility] Last Admin: 07/13/21 08:19 Dose: 25 mcg Documented by: Cyanocobalamin (Cyanocobalamin (Vitamin B12) 1,000 Mcg Tab) 500 mcg PO DAILY [facility] Last Admin: 07/13/21 08:20 Dose: 500 mcg Documented by: Dextrose/Water (50% Dextrose In Water 50 Ml Syringe) 50 ml IVPUSH Q15M PRN PRN Reason: Hypoglycemia Digoxin (Digoxin 125 Mcg Tab) 187.5 mcg PO DAILY@0800 [facility] Last Admin: 07/13/21 08:20 Dose: 187.5 mcg Documented by: Famotidine (Famotidine 20 Mg Tab) 20 mg PO DAILY [facility] Last Admin: 07/13/21 08:20 Dose: 20 mg Documented by: Ferrous Sulfate (Ferrous Sulfate 325 Mg Tab) 325 mg PO DAILY [facility] Last Admin: 07/13/21 08:19 Dose: 325 mg Documented by: Furosemide (Furosemide 20 Mg Tab) 20 mg PO DAILY [facility] Last Admin: 07/13/21 08:19 Dose: 20 mg Documented by: Glucagon (Glucagon,Human Recombinant 1 Mg Vial) 1 mg IM Q15M PRN PRN Reason: Hypoglycemia Piperacillin Sod/Tazobactam (Sod 3.375 gm/ Sodium Chloride) 100 mls @ 200 mls/hr IV Q6H [facility] Last Infusion: 07/13/21 09:08 Dose: Infused Documented by: Vancomycin HCl 1.5 gm/ Premix 300 mls @ 200 mls/hr IV Q24H [facility] Last Infusion: 07/13/21 00:07 Dose: Infused Documented by: Dextrose/Sodium Chloride (Dextrose 5%-Normal Saline) 1,000 mls @ 75 mls/hr IV ASDIRECTED [facility] Last Admin: 07/13/21 09:08 Dose: 75 mls/hr Documented by: Insulin Human Lispro (Insulin Lispro 100 Units/Ml 3 Ml Vial) 0 unit SUBCUT WITHMEALSANDBED [facility]; Protocol Last Admin: 07/13/21 08:19 Dose: Not Given Documented by: Magnesium Oxide (Magnesium Oxide 250 Mg Tab) 250 mg PO DAILY [facility] Last Admin: 07/13/21 08:20 Dose: 250 mg Documented by: Midodrine (Midodrine 2.5 Mg Tab) 5 mg PO TIDAC [facility] Last Admin: 07/13/21 07:39 Dose: Not Given Documented by: Ondansetron HCl (Ondansetron 4 Mg Tab.Dis) 8 mg PO Q8H PRN PRN Reason: Nausea Last Admin: 07/11/21 11:36 Dose: 8 mg Documented by: Oxycodone HCl (Oxycodone 5 Mg Tab) 5 mg PO Q4H PRN PRN Reason: Pain (moderate 4-6) Last Admin: 07/13/21 00:15 Dose: 5 mg Documented by: Saccharomyces Boulardii (Saccharomyces Boulardii (Probiotic) 250 Mg Cap) 250 mg PO BID [facility] Last Admin: 07/13/21 08:19 Dose: 250 mg Documented by: Simvastatin (Simvastatin 40 Mg Tab) 40 mg PO BEDTIME [facility] Last Admin: 07/12/21 21:29 Dose: 40 mg Documented by: Tamsulosin HCl (Tamsulosin 0.4 Mg Cap.Er) 0.4 mg PO DAILY [facility] Last Admin: 07/13/21 08:20 Dose: 0.4 mg Documented by: Vancomycin HCl (Pharmacy To Dose - Vancomycin) 1 dose .XX ASDIRECTED [facility] Warfarin Sodium (Pharmacy To Dose - Warfarin) 1 dose .XX ASDIRECTED [facility] Discontinued Medications Acetaminophen (Acetaminophen 325 Mg Tab) 650 mg PO NOW ONE Stop: 07/10/21 19:36 Last Admin: 07/10/21 19:55 Dose: 650 mg Documented by: Acetaminophen (Acetaminophen 325 Mg Tab) 650 mg PO Q6H PRN PRN Reason: Pain/Fever Last Admin: 07/11/21 21:21 Dose: 650 mg Documented by: Carvedilol (Carvedilol 6.25 Mg Tab) 12.5 mg PO BIDMEALS [facility] Last Admin: 07/12/21 09:43 Dose: Not Given Documented by: Diltiazem HCl (Diltiazem 25 Mg/5 Ml Sdv) 20 mg IVPUSH ONETIME ONE Stop: 07/10/21 23:24 Last Admin: 07/11/21 11:58 Dose: Not Given Documented by: Sodium Chloride (Normal Saline) 1,000 mls @ 200 mls/hr IV .BOLUS ONE Stop: 07/11/21 00:42 Last Admin: 07/10/21 19:56 Dose: 200 mls/hr Documented by: Piperacillin Sod/Tazobactam (Sod 3.375 gm/ Sodium Chloride) 100 mls @ 200 mls/hr IV ONETIME ONE Stop: 07/10/21 21:13 Last Admin: 07/10/21 20:58 Dose: 200 mls/hr Documented by: Vancomycin HCl 1.5 gm/ Premix 300 mls @ 200 mls/hr IV ONETIME ONE Stop: 07/12/21 00:01 Last Admin: 07/11/21 23:16 Dose: 200 mls/hr Documented by: Vancomycin HCl 1,500 mg/ (Sodium Chloride) 500 mls @ 333.333 mls/hr IV Q24H [facility] Last Admin: 07/12/21 00:44 Dose: Not Given Documented by: Sodium Chloride (Normal Saline) 500 mls @ 999 mls/hr IV ONETIME ONE Stop: 07/12/21 00:57 Last Admin: 07/12/21 00:45 Dose: 999 mls/hr Documented by: Losartan Potassium (Losartan 25 Mg Tab) 25 mg PO Q48H [facility] Last Admin: 07/11/21 10:04 Dose: 25 mg Documented by: Peppermint (Peppermint Oil 30 Ml Bottle) Confirm Administered Dose 30 ml .ROUTE .STK-MED ONE Stop: 07/10/21 19:51 Last Admin: 07/10/21 20:50 Dose: Not Given Documented by: Warfarin Sodium (Warfarin 5 Mg Tab) 5 mg PO DAILY@1400 [facility] Warfarin Sodium (Warfarin 5 Mg Tab) 5 mg PO ONETIME ONE Stop: 07/11/21 14:01 Last Admin: 07/11/21 14:24 Dose: 5 mg Documented by: Warfarin Sodium (Warfarin 5 Mg Tab) 5 mg PO ONETIME ONE Stop: 07/12/21 14:01 Last Admin: 07/12/21 14:20 Dose: 5 mg Documented by: - Exam Quality Assessment: DVT Prophylaxis. No: Supplemental Oxygen, Central Line/PICC, Urine Catheter General: Alert, Oriented, Cooperative, No Acute Distress HEENT: Pupils Equal, Pupils Reactive, Mucous Membr. Moist/[place] Neck: No: No JVD, No Thyromegaly Lungs: Clear to Auscultation. No: Crackles, Wheezing Cardiovascular: Regular Rate, Regular Rhythm, Murmurs GI/Abdominal Exam: Normal Bowel Sounds, Soft, Non-Tender. No: Guarding, Rebound Back Exam: Normal Inspection Extremities: Normal Inspection, No Pedal Edema Skin: Warm, Dry, Intact Neurological: No New Focal Deficit Psy/Mental Status: Alert, Normal Affect, Normal Mood - Patient Data Lab Results Last 24 hrs: Laboratory Results - last 24 hr 07/12/21 07/12/21 07/12/21 Range/Units 11:51 17:03 21:23 PT (9.0-12.0) SEC INR (0.9-1.2) Sodium (136-145) mmol/L Potassium (3.5-5.1) mmol/L Chloride (98-107) mmol/L Carbon Dioxide (21-32) mmol/L Anion Gap (7-13) mEq/L BUN (7-18) mg/dL Creatinine (0.70-1.30) mg/dL Est Cr Clr Drug Dosing mL/min Estimated GFR (MDRD) Glucose (70-99) mg/dL POC Glucose 188 H 148 H 121 H (70-99) mg/dL Calcium (8.5-10.1) mg/dL Phosphorus (2.6-4.7) mg/dL 07/13/21 07/13/21 07/13/21 Range/Units 06:20 06:20 07:22 PT 37.3 H D (9.0-12.0) SEC INR 3.8 H (0.9-1.2) Sodium 140 (136-145) mmol/L Potassium 4.1 (3.5-5.1) mmol/L Chloride 104 (98-107) mmol/L Carbon Dioxide 21 (21-32) mmol/L Anion Gap 19.1 H (7-13) mEq/L BUN 22 H (7-18) mg/dL Creatinine 2.67 H (0.70-1.30) mg/dL Est Cr Clr Drug Dosing 21.66 mL/min Estimated GFR (MDRD) 23 Glucose 109 H (70-99) mg/dL POC Glucose 108 H (70-99) mg/dL Calcium 8.2 L (8.5-10.1) mg/dL Phosphorus 4.2 (2.6-4.7) mg/dL Result Diagrams: 07/10/21 19:20 07/13/21 06:20 Patrick Results Last 24 hrs: Microbiology 07/11/21 11:45 Clostridioides difficile (PCR) - Final Stool / Feces 07/10/21 21:20 Urine Culture - Final Urine, Voided MIXED CHARISSA SUGGESTIVE OF CONTAMINATION. 07/11/21 11:45 Stool Culture - Preliminary Stool / Feces - Stool, Liquid NORMAL ENTERIC CHARISSA 2 DAYS 07/10/21 19:30 Aerobic Blood Culture - Preliminary Blood - Arm, Left NO GROWTH AFTER 2 DAYS Anaerobic Blood Culture - Preliminary NO GROWTH AFTER 2 DAYS 07/10/21 19:20 Aerobic Blood Culture - Preliminary Blood - Arm, Right NO GROWTH AFTER 2 DAYS Anaerobic Blood Culture - Final Sepsis Event Note - Evaluation Sepsis Screening Result: Possible Sepsis Risk - Focused Exam Vital Signs: Vital Signs Temp Temp Pulse Pulse Resp BP BP 07/13/21 08:51 37.5 C 07/13/21 08:21 38.1 C 101 H 145/68 H 07/13/21 08:20 101 H 07/13/21 07:32 37.5 C 101 H 20 07/13/21 05:45 37.6 C 96 20 141/73 H 07/13/21 04:00 37.7 C 100 20 128/68 12/29/21 01:45 37.1 C BP Pulse Ox 07/13/21 08:51 07/13/21 08:21 07/13/21 08:20 07/13/21 07:32 145/68 H 95 07/13/21 05:45 96 07/13/21 04:00 96 07/13/21 01:45 - Problem List Review Problem List Initiated/Reviewed/Updated: Yes - My Orders Last 24 Hours: My Active Orders 07/12/21 11:00 Midodrine 5 mg PO TIDAC 07/12/21 18:00 carvediloL [Coreg] 6.25 mg PO BIDMEALS 07/12/21 23:00 VANCOmycin 1.5 GM/300 ML 1.5 gm Premix Bag 1 bag IV Q24H 07/13/21 08:48 Dietary Supplements [RC] TIDMEALS 07/13/21 22:30 VANCOMYCIN TROUGH [CHEM] Timed 07/14/21 09:14 INR,PT,PROTHROMBIN TIME [COAG] DAILY 07/15/21 09:14 INR,PT,PROTHROMBIN TIME [COAG] DAILY 07/16/21 09:14 INR,PT,PROTHROMBIN TIME [COAG] DAILY 07/17/21 09:14 INR,PT,PROTHROMBIN TIME [COAG] DAILY 07/18/21 09:14 INR,PT,PROTHROMBIN TIME [COAG] DAILY - Plan Plan:: This is a 75-year-old male admitted with fever documented temperature of 103, abdominal pain, weight loss, and poor appetite and still having intermittent temperature. His C. diff came back and it is negative. Impression and plan: 1. Fever: Etiology not clear here his WBC is elevated and also having intermittent temperature, blood culture urine culture done and so far no growth, and patient is now empirically getting treated with Zosyn 3.375 mg every 6 hours and Vancomycin, and discussed with pharmacy to check vancomycin random level before re-dosing. 2. Possible urinary tract infection: Follow urine culture and possibility of urosepsis with urine WBC 40-50 and many bacteria and granular , culture Mixed charissa, likely contaminated we will continue the current antibiotics Zosyn and vancomycin. 3. Loose stool: Etiology not clear here again , C.Diff is negative 4. Atrial fibrillation: The rate is controlled now and he is on digoxin 187.5 mcg p.o. daily and the digoxin level is checked and it is acceptable we will continue the Coumadin and the level is followed by the pharmacy. 5. Hypertension: His blood pressure is acceptable and we will continue Coreg at 6.25 mg 2 times a day [ Initially was at 12.5 twice a day.] -We will also continue him on, midodrine 5 mg 3 times a day. His oral intake is poor and we will continue him with D5 NS at 75 mL/h. - I have stopped losartan he was taking at 25 mg every other day [ stopped because of GLENN]. 6. BPH the patient has chronic enlarged prostate with lower urinary tract symptoms and he is on Flomax 0.4 mg p.o. daily. 7. Hyperlipidemia his hyper lipid panel is a stable and we will continue him with simvastatin at 40 mg daily. 8. Diabetes type 2: His glimepiride is now on hold in the hospital and he is on insulin with sliding scale coverage the patient was on liquid diet which is advanced now to pured type of diet to see how he tolerates. 9. Hyperuricemia: The patient is on allopurinol at 100 mg daily and will continue that and it has been started by oncology. 10. GLENN: The etiology likely had from poor oral intake, relative hypotension, and infection of unknown origin, possible AIN from antibiotics use, and I have s topped losartan which he was taking at 25 mg every other day. We will continue him on IV fluids D5 NS at 75 mL/h. Continue I and O recording. BMP again in the morning. 11. Adenocarcinoma of colon and Rectum: It was Dxed at [facility] and he has received Chemotherapy and radiation therapy, I have called [facility] [place] [facility] department and talk to Nurse ( Esther) and she recommended faxing all the hospital Progress notes at [phone] and after reviewing the oncologist will call, I have also Tried to send him to [facility] but they want me to discuss first with [facility] onlcology and after that will call back [place] with [facility] plan and recommendation. I called again to admission transfer Center at [phone], and talk to the Nurse and again faxed all the progress notes, lab data, and Imaging data and was told once the on-call oncology review his data they will call with their decision. GI prophylaxis: We will continue him with Protonix. DVT prophylaxis: Continue him on Coumadin, INR on [facility]
[2021-07-13] MEDS: Simvastatin 40 MG Tab PO SCH (22:12)
[2021-07-13] MEDS: VANCOmycin 1.5 GM/300 ML 1.5 GM in Premix Bag 1 BAG IV SCH (23:43)
[2021-07-14] MEDS: Piperacillin/Tazobactam 3.375 GM in Sodium Chloride 0.9% 100 ML IV SCH ×2 (04:07→09:15)
[2021-07-14] MEDS: Dextrose 5%-0.9% NaCl 1,000 ML IV SCH (04:46)
[2021-07-14] MEDS: Midodrine 2.5 MG Tab PO SCH ×2 (05:06→11:36)
[2021-07-14 06:46] LABS: ANION GAP 17.6 mEq/L (7-13)
[2021-07-14] MEDS: Cholecalciferol (Vitamin D3) 25 MCG Tab PO SCH (09:04)
[2021-07-14] MEDS: Cyanocobalamin (Vitamin B12) 1,000 MCG Tab PO SCH (09:04)
[2021-07-14] MEDS: Tamsulosin 0.4 MG Cap.ER PO SCH (09:04)
[2021-07-14] MEDS: Acetaminophen 325 MG Tab PO PRN (09:04)
[2021-07-14] MEDS: Famotidine 20 MG Tab PO SCH (09:04)
[2021-07-14] MEDS: Carvedilol 6.25 MG Tab PO SCH (09:05)
[2021-07-14] MEDS: Allopurinol 100 MG Tab PO SCH (09:05)
[2021-07-14] MEDS: Ferrous Sulfate 325 MG Tab PO SCH (09:05)
[2021-07-14] MEDS: Saccharomyces Boulardii (Probiotic) 250 MG Cap PO SCH (09:05)
[2021-07-14] MEDS: Digoxin 125 MCG Tab PO SCH (09:05)
[2021-07-14] MEDS: Furosemide 20 MG Tab PO SCH (09:05)
[2021-07-14] MEDS: Insulin Lispro 100 Units/ML 3 ML Vial SUBCUT SCH (09:18)
--- NOTE | 2021-07-14 10:47 | PCM.DCSUM1 ---
Discharge Summary - Hospital Course Free Text/Narrative:: The patient was admitted with lower abdominal pain and fever, with temp of 103, possible colitis, weakness, poor appetite, and weight loss. The patient has past medical history which is significant for diabetes, atrial fibrillation on chronic anticoagulation hypertension, hyperlipidemia, BPH, cancer of Colon and rectum, status post resection 06/07 at [facility] in [facility] he was discharged from [facility] on 06/27/2021 and since then he is at home but has poor appetite ,his colon cancer is at least stage III and he underwent chemotherapy and radiation therapy, he has received 25 sessions of radiation therapy. the patient has a colostomy bag and as per the output from the colostomy is green which is not the usual color and after admission Stool was sent for C. difficile and it is negative, stopped empiric treatment with metronidazole. The pt is admitted on 07/11 to General Medical floor and intial admission temperature was 103 but after that he continue to have elevated temperature 101- 100.4 range and getting Tylenol every 4 hrs, His B/C, showed no growth, U/C mixed charissa, stool culture for Salmonella, Shigella, Campylobacter, E. coli O157, Shiga toxin 1 and 2, C. difficile and stool occult blood all are negative. He is on antibiotics Zosyn and vancomycin and despite that his is continuously spiking temperature and getting Tylenol every 4 hours to control the temperature. I have contacted local [facility], [place], [place], and their recommendation was since the patient was never seen at their facility and the person has colorectal cancer for which he has received full treatment at [place], [place], they do not want to accept him for further evaluation and care. Contacted local [facility] at [facility] through, and there not accepting any new patient as they are on diversion. I contacted [facility] and faxed all the lab data, imaging work and discussed with Dr. Sharma of colorectal cancer and he agreed to accept this patient for further evaluation and treatment. We have contacted local ground transportation system to transfer him from [place] to [facility] but no ground transport is available for this long-distance ride. Finally we decided that he will be transported to [facility] via air ambulance. I have contacted [facility] and updated them about his transport to [facility] and approximate time of arrival and [facility] will make the arrangement for [facility] hospital. I have discussed about this plan with the patient and also with family ( ) and they are in agreement of his transfer to [facility] for further care. Diagnosis: Stroke: No - Discharge Data Discharge Date: 07/14/21 Discharge Disposition: DC/Tfer to Acute Hospital 02 Condition: Good - Referral to Home Health Primary Care Physician: PCP None - Patient Summary/Data Consults: Consultations 07/11/21 16:47 OT Evaluation and Treatment [CONS] Routine PT Evaluation and Treatment [CONS] Routine - Patient Instructions Diet: Heart Healthy Diet Activity: As Tolerated Showering/Bathing: May Shower Notify Provider of: Fever, Increased Pain, Nausea and/or Vomiting Other/Special Instructions: Pt will be transferred to [facility] Via Air ambulance - Discharge Plan *PRESCRIPTION DRUG MONITORING PROGRAM REVIEWED*: No *COPY OF PRESCRIPTION DRUG MONITORING REPORT IN PATIENT SUSANNA: No Oxygen Therapy Mode: Room Air Forms: ED Department Discharge Referrals: PCP,None [Primary Care Provider] - - Discharge Summary/Plan Comment DC Time >30 min.: Yes Total # of Minutes for Discharge Time: Total Time spend on this patient discharge: >30 minutes Discharge Summary/Plan Comment: This is a 75-year-old male admitted with fever documented temperature of 103, abdominal pain, weight loss, and poor appetite and still having intermittent temperature. His C. diff came back and it is negative. Impression and plan: 1. Fever: Etiology not clear here his WBC is not elevated and also having intermittent temperature, blood culture no growth ,urine culture ( Mixed charissa- likely contamination) and patient is now empirically getting treated with Zosyn 3.375 mg every 6 hours and Vancomycin, and pharmacy checking the level of vancomycin random level before re-dosing. 2. Possible urinary tract infection: no sign of urosepsis with urine WBC 40-50 and many bacteria and granular cast , culture Mixed charissa, likely contaminated but will continue the current antibiotics Zosyn and vancomycin.( still spiking temperature, temp on rounds today was 100.4) 3. Loose stool: Etiology not clear here again , C.Diff is negative and stool culture for Salmonella, Shigella, Campylobacter, E. coli O157, Shiga toxin 1 and 2, C. difficile and stool occult blood all are negative. 4. Atrial fibrillation: The rate is controlled now and he is on digoxin 187.5 mcg p.o. daily and the digoxin level is checked and it is acceptable we will continue Coumadin and the level is followed by the pharmacy. 5. Hypertension: His blood pressure is acceptable and we will continue Coreg at 6.25 mg 2 times a day [ Initially was at 12.5 twice a day.] -We will also continue him on, midodrine 5 mg 3 times a day. - His oral intake is poor and we will continue him with D5 NS at 75 mL/h. - I have stopped losartan he was taking at 25 mg every other day [ stopped because of GLENN]. 6. BPH the patient has chronic enlarged prostate with lower urinary tract symptoms and he is on Flomax 0.4 mg p.o. daily. 7. Hyperlipidemia his hyper lipid panel is a stable and we will continue him with simvastatin at 40 mg daily. 8. Diabetes type 2: His glimepiride is now on hold in the hospital and he is on insulin with sliding scale coverage the patient was on liquid diet which is advanced now to pured type of diet to see how he tolerates. 9. Hyperuricemia: The patient is on allopurinol at 100 mg daily and will continue that and it has been started by oncology. 10. GLENN: The etiology likely had from poor oral intake, relative hypotension, and infection of unknown origin, possible AIN from antibiotics use, and I have stopped losartan which he was taking at 25 mg every other day. -We will continue him on IV fluids D5 NS at 75 mL/h. Continue I and O recording. BMP again in the morning. 11. Adenocarcinoma of colon and Rectum: It was Dxed at [facility] and he has received Chemotherapy and radiation therapy, I have called [facility] Oncology department and talk to Nurse ( Esther) and she recommended faxing all the hospital Progress notes at [phone] and after reviewing the oncologist will call, I have also Tried to send him to [facility] but they want me to discuss first with [facility] oncology and and called back [facility] and since no one at [facility] had seen this patient and also not involved in the management of his cancer treatment they do not like to accept this patient for further care at their facility. I called again to admission transfer Center at [phone], and talk to the Nurse and again faxed all the progress notes, lab data, and Imaging data and was told once the on-call oncology review his data they will call with their decision. This morning I got a call from Dr. Sharma, of [facility], and discussed the case with Dr. Sharma and he kindly agreed to accept the patient at [facility] for further care. The patient will be transferred to [facility] under the care of Dr. Sharma, we have tried all resources available for ground transportation but no one is willing to transport him to [facility], finally were able to arrange your transportation for him to transfer to [facility] at [place], [place]. I have discussed with patient as well as patient's about this plan and they agreed with that transfer to [facility]] for further care GI prophylaxis: We will continue him with Protonix. DVT prophylaxis: Continue him on Coumadin, INR on target - General Info Date of Service: 07/14/21 Admission Dx/Problem (Free Text: The patient was admitted with lower abdominal pain and fever, with temp of 103, possible colitis, weakness, poor appetite, and weight loss. Subjective Update: Today the patient was seen in room in rounds, he is not feeling good today, and he on pured diet ,and has no nausea ,vomiting, or or any dysuria. He is intermittently spiking temperature and during the round checked temperature as he was feeling hot and temp was 100.4 Functional Status: Reports: Pain Controlled, Tolerating Diet, Ambulating, Urinating - Review of Systems General: Reports: Fever, Weakness, Chills, Appetite (acceptable) HEENT: Denies: Headaches, Sinus Congestion, Sore Throat, Visual Changes Pulmonary: Denies: Shortness of Breath, Cough, Wheezing Cardiovascular: Denies: Chest Pain, Dyspnea on Exertion, Lightheadedness Gastrointestinal: Reports: Decreased Appetite. Denies: Abdominal Pain, Difficulty Swallowing, Nausea, Vomiting Genitourinary: Denies: Dysuria, Burning, Urgency, Flank Pain Musculoskeletal: Denies: Neck Pain, Arm Pain, Leg Pain, Joint Pain Skin: Denies: Cyanosis, Jaundice, Bruising, Pruritis, Rash Neurological: Denies: Confusion, Numbness, Tremors Psychiatric: Denies: Confusion, Anxiety - Patient Data Vitals - Most Recent: Last Vital Signs Temp 37.2 C 07/14/21 09:34 Pulse 98 07/14/21 09:05 Resp 18 07/14/21 07:53 BP 148/68 H 07/14/21 09:05 Pulse Ox 96 07/14/21 07:53 Weight - Most Recent: 82.826 kg I&O - Last 24 hours: Intake & Output 12/29/21 12/30/21 12/30/21 22:59 06:59 14:59 Intake Total 96 300 Output Total 900 700 Balance -804 -400 Lab Results - Last 24 hrs: Laboratory Results - last 24 hr 07/13/21 07/13/21 07/13/21 Range/Units 11:30 17:00 21:11 WBC (5.0-10.0) 10^3/uL RBC (4.6-6.2) 10^6/uL Hgb (14.0-18.0) g/dL Hct (40.0-54.0) % MCV (80-100) fL MCH (27.0-34.0) pg MCHC (33.0-35.0) g/dL Plt Count (150-450) 10^3/uL PT (9.0-12.0) SEC INR (0.9-1.2) Sodium (136-145) mmol/L Potassium (3.5-5.1) mmol/L Chloride (98-107) mmol/L Carbon Dioxide (21-32) mmol/L Anion Gap (7-13) mEq/L BUN (7-18) mg/dL Creatinine (0.70-1.30) mg/dL Est Cr Clr Drug Dosing mL/min Estimated GFR (MDRD) Glucose (70-99) mg/dL POC Glucose 233 H 125 H 218 H (70-99) mg/dL Calcium (8.5-10.1) mg/dL Vancomycin Trough (10.0-20.0) ug/mL 07/13/21 07/14/21 07/14/21 Range/Units 22:35 06:15 06:15 WBC (5.0-10.0) 10^3/uL RBC (4.6-6.2) 10^6/uL Hgb (14.0-18.0) g/dL Hct (40.0-54.0) % MCV (80-100) fL MCH (27.0-34.0) pg MCHC (33.0-35.0) g/dL Plt Count (150-450) 10^3/uL PT 33.1 H (9.0-12.0) SEC INR 3.4 H (0.9-1.2) Sodium 142 (136-145) mmol/L Potassium 3.6 (3.5-5.1) mmol/L Chloride 107 (98-107) mmol/L Carbon Dioxide 21 (21-32) mmol/L Anion Gap 17.6 H (7-13) mEq/L BUN 19 H (7-18) mg/dL Creatinine 2.31 H (0.70-1.30) mg/dL Est Cr Clr Drug Dosing 25.04 mL/min Estimated GFR (MDRD) 28 Glucose 152 H (70-99) mg/dL POC Glucose (70-99) mg/dL Calcium 8.0 L (8.5-10.1) mg/dL Vancomycin Trough 19.4 (10.0-20.0) ug/mL 07/14/21 07/14/21 Range/Units 06:15 07:32 WBC 4.1 L (5.0-10.0) 10^3/uL RBC 2.84 L (4.6-6.2) 10^6/uL Hgb 8.4 L D (14.0-18.0) g/dL Hct 27.5 L (40.0-54.0) % MCV 96.8 (80-100) fL MCH 29.6 (27.0-34.0) pg MCHC 30.5 L (33.0-35.0) g/dL Plt Count 193 (150-450) 10^3/uL PT (9.0-12.0) SEC INR (0.9-1.2) Sodium (136-145) mmol/L Potassium (3.5-5.1) mmol/L Chloride (98-107) mmol/L Carbon Dioxide (21-32) mmol/L Anion Gap (7-13) mEq/L BUN (7-18) mg/dL Creatinine (0.70-1.30) mg/dL Est Cr Clr Drug Dosing mL/min Estimated GFR (MDRD) Glucose (70-99) mg/dL POC Glucose 161 H (70-99) mg/dL Calcium (8.5-10.1) mg/dL Vancomycin Trough (10.0-20.0) ug/mL [facility] Results - Last 24 hrs: Microbiology 07/11/21 11:45 Stool Culture - Final Stool / Feces - Stool, Liquid NORMAL ENTERIC CHARISSA. NO SALMONELLA, SHIGELLA, CAMPYLOBACTER OR E.COLI O157 ISOLATED. 12/26/21 19:20 Aerobic Blood Culture - Preliminary Blood - Arm, Right NO GROWTH AFTER 3 DAYS Anaerobic Blood Culture - Final 07/10/21 19:30 Aerobic Blood Culture - Preliminary Blood - Arm, Left NO GROWTH AFTER 3 DAYS Anaerobic Blood Culture - Preliminary NO GROWTH AFTER 3 DAYS 07/11/21 11:45 Shiga Toxin I & II - Final Stool / Feces 07/11/21 11:45 Clostridioides difficile (PCR) - Final Stool / Feces 07/10/21 21:20 Urine Culture - Final Urine, Voided MIXED CHARISSA SUGGESTIVE OF CONTAMINATION. Med Orders - Current: Current Medications Acetaminophen (Acetaminophen 325 Mg Tab) 650 mg PO Q4H PRN PRN Reason: Pain/Fever Last Admin: 07/14/21 09:04 Dose: 650 mg Documented by: Allopurinol (Allopurinol 100 Mg Tab) 100 mg PO DAILY [facility] Last Admin: 07/14/21 09:05 Dose: 100 mg Documented by: Carvedilol (Carvedilol 6.25 Mg Tab) 6.25 mg PO BIDMEALS [facility] Last Admin: 07/14/21 09:05 Dose: 6.25 mg Documented by: Cholecalciferol (Cholecalciferol (Vitamin D3) 25 Mcg Tab) 25 mcg PO DAILY [facility] Last Admin: 07/14/21 09:04 Dose: 25 mcg Documented by: Cyanocobalamin (Cyanocobalamin (Vitamin B12) 1,000 Mcg Tab) 500 mcg PO DAILY [facility] Last Admin: 07/14/21 09:04 Dose: 500 mcg Documented by: Dextrose/Water (50% Dextrose In Water 50 Ml Syringe) 50 ml IVPUSH Q15M PRN PRN Reason: Hypoglycemia Digoxin (Digoxin 125 Mcg Tab) 187.5 mcg PO DAILY@0800 [facility] Last Admin: 07/14/21 09:05 Dose: 187.5 mcg Documented by: Famotidine (Famotidine 20 Mg Tab) 20 mg PO DAILY [facility] Last Admin: 07/14/21 09:04 Dose: 20 mg Documented by: Ferrous Sulfate (Ferrous Sulfate 325 Mg Tab) 325 mg PO DAILY [facility] Last Admin: 07/14/21 09:05 Dose: 325 mg Documented by: Furosemide (Furosemide 20 Mg Tab) 20 mg PO DAILY [facility] Last Admin: 07/14/21 09:05 Dose: 20 mg Documented by: Glucagon (Glucagon,Human Recombinant 1 Mg Vial) 1 mg IM Q15M PRN PRN Reason: Hypoglycemia Piperacillin Sod/Tazobactam (Sod 3.375 gm/ Sodium Chloride) 100 mls @ 200 mls/hr IV Q6H [facility] Last Infusion: 07/14/21 10:30 Dose: Infused Documented by: Vancomycin HCl 1.5 gm/ Premix 300 mls @ 200 mls/hr IV Q24H [facility] Last Admin: 07/13/21 23:43 Dose: 200 mls/hr Documented by: Dextrose/Sodium Chloride (Dextrose 5%-Normal Saline) 1,000 mls @ 75 mls/hr IV ASDIRECTED [facility] Last Admin: 07/14/21 04:46 Dose: 75 mls/hr Documented by: Insulin Human Lispro (Insulin Lispro 100 Units/Ml 3 Ml Vial) 0 unit SUBCUT WITHMEALSANDBED [facility]; Protocol Last Admin: 07/14/21 09:18 Dose: 2 units Documented by: Magnesium Oxide (Magnesium Oxide 250 Mg Tab) 250 mg PO DAILY [facility] Last Admin: 07/14/21 09:04 Dose: 250 mg Documented by: Midodrine (Midodrine 2.5 Mg Tab) 5 mg PO TIDAC [facility] Last Admin: 07/14/21 05:06 Dose: Not Given Documented by: Ondansetron HCl (Ondansetron 4 Mg Tab.Dis) 8 mg PO Q8H PRN PRN Reason: Nausea Last Admin: 07/11/21 11:36 Dose: 8 mg Documented by: Oxycodone HCl (Oxycodone 5 Mg Tab) 5 mg PO Q4H PRN PRN Reason: Pain (moderate 4-6) Last Admin: 07/13/21 00:15 Dose: 5 mg Documented by: Saccharomyces Boulardii (Saccharomyces Boulardii (Probiotic) 250 Mg Cap) 250 mg PO BID [facility] Last Admin: 07/14/21 09:05 Dose: 250 mg Documented by: Simvastatin (Simvastatin 40 Mg Tab) 40 mg PO BEDTIME [facility] Last Admin: 07/13/21 22:12 Dose: 40 mg Documented by: Tamsulosin HCl (Tamsulosin 0.4 Mg Cap.Er) 0.4 mg PO DAILY [facility] Last Admin: 07/14/21 09:04 Dose: 0.4 mg Documented by: Vancomycin HCl (Pharmacy To Dose - Vancomycin) 1 dose .XX ASDIRECTED [facility] Warfarin Sodium (Pharmacy To Dose - Warfarin) 1 dose .XX ASDIRECTED [facility] Discontinued Medications Acetaminophen (Acetaminophen 325 Mg Tab) 650 mg PO NOW ONE Stop: 07/10/21 19:36 Last Admin: 07/10/21 19:55 Dose: 650 mg Documented by: Acetaminophen (Acetaminophen 325 Mg Tab) 650 mg PO Q6H PRN PRN Reason: Pain/Fever Last Admin: 07/11/21 21:21 Dose: 650 mg Documented by: Carvedilol (Carvedilol 6.25 Mg Tab) 12.5 mg PO BIDMEALS [facility] Last Admin: 07/12/21 09:43 Dose: Not Given Documented by: Diltiazem HCl (Diltiazem 25 Mg/5 Ml Sdv) 20 mg IVPUSH ONETIME ONE Stop: 07/10/21 23:24 Last Admin: 07/11/21 11:58 Dose: Not Given Documented by: Sodium Chloride (Normal Saline) 1,000 mls @ 200 mls/hr IV .BOLUS ONE Stop: 07/11/21 00:42 Last Admin: 07/10/21 19:56 Dose: 200 mls/hr Documented by: Piperacillin Sod/Tazobactam (Sod 3.375 gm/ Sodium Chloride) 100 mls @ 200 mls/hr IV ONETIME ONE Stop: 07/10/21 21:13 Last Admin: 07/10/21 20:58 Dose: 200 mls/hr Documented by: Vancomycin HCl 1.5 gm/ Premix 300 mls @ 200 mls/hr IV ONETIME ONE Stop: 07/12/21 00:01 Last Admin: 07/11/21 23:16 Dose: 200 mls/hr Documented by: Vancomycin HCl 1,500 mg/ (Sodium Chloride) 500 mls @ 333.333 mls/hr IV Q24H [facility] Last Admin: 07/12/21 00:44 Dose: Not Given Documented by: Sodium Chloride (Normal Saline) 500 mls @ 999 mls/hr IV ONETIME ONE Stop: 07/12/21 00:57 Last Admin: 07/12/21 00:45 Dose: 999 mls/hr Documented by: Losartan Potassium (Losartan 25 Mg Tab) 25 mg PO Q48H [facility] Last Admin: 07/11/21 10:04 Dose: 25 mg Documented by: Peppermint (Peppermint Oil 30 Ml Bottle) Confirm Administered Dose 30 ml .ROUTE .STK-MED ONE Stop: 07/10/21 19:51 Last Admin: 07/10/21 20:50 Dose: Not Given Documented by: Warfarin Sodium (Warfarin 5 Mg Tab) 5 mg PO DAILY@1400 [facility] Warfarin Sodium (Warfarin 5 Mg Tab) 5 mg PO ONETIME ONE Stop: 07/11/21 14:01 Last Admin: 07/11/21 14:24 Dose: 5 mg Documented by: Warfarin Sodium (Warfarin 5 Mg Tab) 5 mg PO ONETIME ONE Stop: 07/12/21 14:01 Last Admin: 07/12/21 14:20 Dose: 5 mg Documented by: - Exam Quality Assessment: Reports: DVT Prophylaxis. Denies: Supplemental Oxygen, Central Line/PICC General: Reports: Alert, Oriented, Cooperative, No Acute Distress HEENT: Reports: Pupils Equal, Pupils Reactive, EOMI, Mucous Membr. Moist/Nunda Neck: Reports: Supple, No JVD, No Thyromegaly. Denies: Lymphadenopathy Lungs: Reports: Clear to Auscultation, Normal Respiratory Effort Cardiovascular: Reports: Regular Rate, Regular Rhythm, Murmurs GI/Abdominal Exam: Normal Bowel Sounds, Non-Tender, No Distention. No: Rebound (Male) Exam: Deferred Rectal (Males) Exam: Deferred Back Exam: Reports: Normal Inspection Extremities: Normal Inspection, No Pedal Edema Skin: Reports: Warm, Dry, Intact Neurological: Reports: No New Focal Deficit Psy/Mental Status: Reports: Alert, Normal Affect, Normal Mood
== END 2021-07-14 11:30 | DRG 690 ==
LOC: DL.ED 18:59 → DL.MS 22:19
PROVIDERS: ADMIT Internal Medicine; ATTEND Internal Medicine Nephrology
DX: A41.9 Sepsis, unspecified organism (principal); I48.20 Chronic atrial fibrillation, unspecified; R53.1 Weakness; E11.22 Type 2 diabetes mellitus with diabetic chronic kidney disease; H91.93 Unspecified hearing loss, bilateral; H54.7 Unspecified visual loss; H35.30 Unspecified macular degeneration; I25.10 Atherosclerotic heart disease of native coronary artery without angina pectoris; I13.0 Hypertensive heart and chronic kidney disease with heart failure and stage 1 through stage 4 chronic kidney disease, or unspecified chronic kidney disease; N18.9 Chronic kidney disease, unspecified; I50.9 Heart failure, unspecified; E78.00 Pure hypercholesterolemia, unspecified; K57.90 Diverticulosis of intestine, part unspecified, without perforation or abscess without bleeding; M10.9 Gout, unspecified; Z85.038 Personal history of other malignant neoplasm of large intestine; Z90.49 Acquired absence of other specified parts of digestive tract; N39.0 Urinary tract infection, site not specified; N17.9 Acute kidney failure, unspecified; C18.9 Malignant neoplasm of colon, unspecified; Z79.84 Long term (current) use of oral hypoglycemic drugs; Z79.899 Other long term (current) drug therapy; R50.9 Fever, unspecified; R19.7 Diarrhea, unspecified; I48.91 Unspecified atrial fibrillation; I10 Essential (primary) hypertension; Z20.822 Contact with and (suspected) exposure to COVID-19; N40.0 Benign prostatic hyperplasia without lower urinary tract symptoms; E78.5 Hyperlipidemia, unspecified; E11.9 Type 2 diabetes mellitus without complications; Z88.8 Allergy status to other drugs, medicaments and biological substances; Z88.1 Allergy status to other antibiotic agents; Z79.01 Long term (current) use of anticoagulants; Z93.3 Colostomy status
CPT/HCPCS: 0240U; 36415; 71250; 74176; 80048; 80053; 80162; 80202; 81001; 82150; 82272; 82947; 83605; 83690; 83735; 83880; 84100; 84484; 85025; 85027; 85610; 87040; 87045; 87046; 87086; 87493; 87899; 93005; 96365; 97161; 97165; 97530; 99285; 93010; 99222; 99232; 99239; A9270-GY; J1815-GY; J2543; J3370; J7030; J7040; J7042

== ENCOUNTER 2021-08-12 21:49 | Inpatient (IN) | payer MEDICARE, OTHER ==
[2021-08-12 23:05] LABS: ANION GAP 17.2 mEq/L (7-13)
[2021-08-12] MEDS ORDERED: Sodium Chloride 0.9% 1,000 ML IV ONE (23:06)
[2021-08-12] MEDS ORDERED: Piperacillin/Tazobactam 3.375 GM in Sodium Chloride 0.9% 100 ML IV ONE (23:26)
[2021-08-12 23:33] LABS: CORONAVIRUS COVID-19 NAA NEGATIVE (NEGATIVE)
[2021-08-12] MEDS ORDERED: Oseltamivir 75 MG Cap PO ONE (23:57)
[2021-08-13] MEDS: Acetaminophen 325 MG Tab PO PRN ×3 (02:04→17:18)
[2021-08-13] MEDS: Ondansetron 4 MG/2 ML SDV IVPUSH PRN (02:36)
[2021-08-13] MEDS: Sodium Chloride 0.9% 1,000 ML IV SCH ×3 (02:37→21:59)
[2021-08-13] MEDS ORDERED: Docusate Sodium 100 MG Cap PO PRN (05:05)
[2021-08-13] MEDS: Piperacillin/Tazobactam 2.25 GM in Sodium Chloride 0.9% 50 ML IV SCH ×4 (06:21→23:56)
[2021-08-13] MEDS ORDERED: Warfarin 5 MG Tab PO SCH (09:00)
[2021-08-13] MEDS: Glimepiride 2 MG Tab PO SCH (10:09)
[2021-08-13] MEDS: Carvedilol 6.25 MG Tab PO SCH ×2 (10:09→20:45)
[2021-08-13] MEDS: Digoxin 125 MCG Tab PO SCH (10:10)
[2021-08-13] MEDS: Oseltamivir 75 MG Cap PO SCH ×2 (10:10→20:42)
[2021-08-13] MEDS: Tamsulosin 0.4 MG Cap.ER PO SCH (10:10)
[2021-08-13] MEDS ORDERED: Warfarin 5 MG Tab PO ONE (14:00)
[2021-08-13] MEDS ORDERED: Acetaminophen 325 MG Tab PO ONE (20:27)
[2021-08-13] MEDS ORDERED: Sodium Chloride 0.9% 500 ML IV ONE (20:30)
[2021-08-13] MEDS: Simvastatin 40 MG Tab PO SCH (20:42)
[2021-08-14] MEDS: Piperacillin/Tazobactam 2.25 GM in Sodium Chloride 0.9% 50 ML IV SCH ×4 (05:55→23:48)
[2021-08-14 07:58] LABS: ANION GAP 11.9 mEq/L (7-13)
[2021-08-14] MEDS: Carvedilol 6.25 MG Tab PO SCH ×2 (08:57→21:29)
[2021-08-14] MEDS: Losartan 25 MG Tab PO SCH (08:57)
[2021-08-14] MEDS: Tamsulosin 0.4 MG Cap.ER PO SCH (08:57)
[2021-08-14] MEDS: Oseltamivir 75 MG Cap PO SCH ×2 (08:58→21:29)
[2021-08-14] MEDS: Glimepiride 2 MG Tab PO SCH (08:58)
[2021-08-14] MEDS: Digoxin 125 MCG Tab PO SCH (08:59)
[2021-08-14] MEDS: Acetaminophen 325 MG Tab PO PRN ×2 (09:06→16:48)
[2021-08-14] MEDS ORDERED: Warfarin 2.5 MG Tab PO ONE (14:00)
[2021-08-14] MEDS: Sodium Chloride 0.9% 1,000 ML IV SCH (18:20)
[2021-08-14] MEDS: Simvastatin 40 MG Tab PO SCH (21:29)
[2021-08-15] MEDS: Sodium Chloride 0.9% 1,000 ML IV SCH ×2 (04:53→21:04)
[2021-08-15] MEDS: Piperacillin/Tazobactam 2.25 GM in Sodium Chloride 0.9% 50 ML IV SCH ×4 (05:35→23:47)
[2021-08-15 07:05] LABS: ANION GAP 11.7 mEq/L (7-13)
[2021-08-15] MEDS: Acetaminophen 325 MG Tab PO PRN (07:37)
[2021-08-15] MEDS: Carvedilol 6.25 MG Tab PO SCH ×2 (08:30→21:06)
[2021-08-15] MEDS: Digoxin 125 MCG Tab PO SCH (08:31)
[2021-08-15] MEDS: Oseltamivir 75 MG Cap PO SCH ×2 (08:31→21:05)
[2021-08-15] MEDS: Tamsulosin 0.4 MG Cap.ER PO SCH (08:32)
[2021-08-15] MEDS ORDERED: Calcium Carbonate 500 MG Tab.Chew PO PRN (09:57)
[2021-08-15] MEDS: Non-Formulary Medication 1 Each (Ferrous Gluconate [Ferrous Gluconate] 324 MG Tablet) PO SCH ×3 (10:01→10:49)
[2021-08-15] MEDS: Glimepiride 2 MG Tab PO SCH (10:47)
[2021-08-15] MEDS: Simvastatin 40 MG Tab PO SCH (21:04)
[2021-08-16] MEDS: Acetaminophen 325 MG Tab PO PRN (00:24)
[2021-08-16] MEDS: Ondansetron 4 MG/2 ML SDV IVPUSH PRN (00:27)
[2021-08-16] MEDS: Piperacillin/Tazobactam 2.25 GM in Sodium Chloride 0.9% 50 ML IV SCH ×2 (05:36→12:38)
[2021-08-16] MEDS ORDERED: Glimepiride 2 MG Tab PO SCH (08:00)
[2021-08-16] MEDS ORDERED: Ferrous Sulfate 325 MG Tab PO SCH (08:00)
[2021-08-16] MEDS: Digoxin 125 MCG Tab PO SCH (08:33)
[2021-08-16] MEDS: Tamsulosin 0.4 MG Cap.ER PO SCH (08:34)
[2021-08-16] MEDS: Losartan 25 MG Tab PO SCH (08:36)
[2021-08-16] MEDS: Carvedilol 6.25 MG Tab PO SCH (08:36)
[2021-08-16] MEDS: Oseltamivir 75 MG Cap PO SCH (08:37)
[2021-08-16 09:18] LABS: ANION GAP 14.3 mEq/L (7-13)
== END 2021-08-16 15:00 | disposition home or self-care (01) | DRG 872 ==
LOC: DL.ED 21:49 → DL.MS 08-13 00:13
PROVIDERS: ADMIT Internal Medicine; ATTEND Internal Medicine
DX: A41.89 Other specified sepsis (principal); I48.20 Chronic atrial fibrillation, unspecified; R53.1 Weakness; R79.1 Abnormal coagulation profile; C18.7 Malignant neoplasm of sigmoid colon; H54.7 Unspecified visual loss; H91.93 Unspecified hearing loss, bilateral; H35.30 Unspecified macular degeneration; N17.9 Acute kidney failure, unspecified; I13.0 Hypertensive heart and chronic kidney disease with heart failure and stage 1 through stage 4 chronic kidney disease, or unspecified chronic kidney disease; N18.9 Chronic kidney disease, unspecified; I50.9 Heart failure, unspecified; E78.00 Pure hypercholesterolemia, unspecified; K57.90 Diverticulosis of intestine, part unspecified, without perforation or abscess without bleeding; I48.91 Unspecified atrial fibrillation; M10.9 Gout, unspecified; Z88.1 Allergy status to other antibiotic agents; Z88.8 Allergy status to other drugs, medicaments and biological substances; E78.5 Hyperlipidemia, unspecified; Z79.84 Long term (current) use of oral hypoglycemic drugs; N18.30 Chronic kidney disease, stage 3 unspecified; E11.22 Type 2 diabetes mellitus with diabetic chronic kidney disease; I12.9 Hypertensive chronic kidney disease with stage 1 through stage 4 chronic kidney disease, or unspecified chronic kidney disease; I25.10 Atherosclerotic heart disease of native coronary artery without angina pectoris; N40.0 Benign prostatic hyperplasia without lower urinary tract symptoms; Z20.822 Contact with and (suspected) exposure to COVID-19; J10.1 Influenza due to other identified influenza virus with other respiratory manifestations; Z79.4 Long term (current) use of insulin; Z79.01 Long term (current) use of anticoagulants; Z85.038 Personal history of other malignant neoplasm of large intestine; Z85.048 Personal history of other malignant neoplasm of rectum, rectosigmoid junction, and anus; Z90.49 Acquired absence of other specified parts of digestive tract; Z79.1 Long term (current) use of non-steroidal anti-inflammatories (NSAID); Z79.899 Other long term (current) drug therapy; Z97.3 Presence of spectacles and contact lenses; Z97.4 Presence of external hearing-aid; Z87.19 Personal history of other diseases of the digestive system; Z98.42 Cataract extraction status, left eye; Z98.41 Cataract extraction status, right eye; Z90.89 Acquired absence of other organs; Z98.890 Other specified postprocedural states; Z93.3 Colostomy status
CPT/HCPCS: 0240U; 36415; 71045; 80048; 80053; 80162; 81001; 82150; 82947; 83605; 83690; 83880; 85025; 85027; 85610; 86140; 87040; 87077; 87086; 87186; 96365; 99284; 99285-25; A9270-GY; J2405; J2543; J3370; J7030; J7040; J7050

== ENCOUNTER 2021-10-04 10:46 | Observation (INO) | payer MEDICARE, OTHER ==
[2021-10-04] MEDS ORDERED: HYDROmorphone 0.5 MG/0.5 ML Syringe IVPUSH ONE (11:12)
[2021-10-04] MEDS ORDERED: Sodium Chloride 0.9% 1,000 ML IV ONE (11:13)
[2021-10-04] MEDS: Sodium Chloride 0.9% 10 ML Syringe FLUSH PRN ×2 (11:29→15:00)
[2021-10-04] MEDS ORDERED: Levofloxacin 500 MG Tab PO ONE (12:27)
[2021-10-04] MEDS ORDERED: Polyethylene Glycol 3350 Powder 17 GM Packet PO PRN (13:47)
[2021-10-04] MEDS ORDERED: Docusate Sodium 100 MG Cap PO PRN (13:47)
[2021-10-04] MEDS ORDERED: Bisacodyl 5 MG Tab PO PRN (13:47)
[2021-10-04] MEDS ORDERED: Acetaminophen 325 MG Tab PO PRN ×2 (13:47→15:29)
[2021-10-04] MEDS ORDERED: Albuterol/Ipratropium 3.0-0.5 MG/3 ML Neb Soln NEB PRN (13:47)
[2021-10-04] MEDS ORDERED: Glucagon,Human Recombinant 1 MG Vial IM PRN (14:01)
[2021-10-04] MEDS ORDERED: 50% Dextrose in Water 50 ML Syringe IVPUSH PRN (14:01)
[2021-10-04] MEDS ORDERED: Piperacillin/Tazobactam 2.25 GM in Sodium Chloride 0.9% 50 ML IV SCH (14:30)
[2021-10-04] MEDS ORDERED: Calcium Carbonate 500 MG Tab.Chew PO PRN (15:29)
[2021-10-04] MEDS ORDERED: ONDANSETRON 8 MG PO PRN (15:29)
[2021-10-04] MEDS: Nystatin Topical Powder 30 GM Bottle TOP PRN (15:53)
[2021-10-04] MEDS: XELODA 500 MG PO SCH ×2 (15:54→21:14)
[2021-10-04] MEDS ORDERED: **NO WARFARIN TODAY PO ONE (16:30)
[2021-10-04] MEDS: Tamsulosin 0.4 MG Cap.ER PO SCH (17:28)
[2021-10-04] MEDS: Carvedilol 25 MG Tab PO SCH (17:29)
[2021-10-04] MEDS: Glimepiride 2 MG Tab PO SCH (17:30)
[2021-10-04] MEDS: Digoxin 125 MCG Tab PO SCH (17:30)
[2021-10-04] MEDS: Insulin Lispro 100 Units/ML 3 ML Vial SUBCUT SCH (17:33)
[2021-10-04] MEDS ORDERED: Sodium Chloride 0.9% 250 ML IV SCH (19:15)
[2021-10-04] MEDS ORDERED: Zolpidem 5 MG Tab PO PRN (21:00)
[2021-10-04] MEDS ORDERED: CAPECITABINE 500 MG PO SCH (21:00)
[2021-10-04] MEDS: Saccharomyces Boulardii (Probiotic) 250 MG Cap PO SCH (21:12)
[2021-10-04] MEDS: Simvastatin 40 MG Tab PO SCH (21:13)
[2021-10-04] MEDS: Piperacillin/Tazobactam 2.25 GM in Sodium Chloride 0.9% 50 ML IV SCH (21:41)
[2021-10-04] MEDS: Acetaminophen/oxyCODONE 325-5 MG Tab PO PRN (23:22)
[2021-10-05] MEDS: Piperacillin/Tazobactam 2.25 GM in Sodium Chloride 0.9% 50 ML IV SCH ×4 (03:12→21:07)
[2021-10-05 06:50] LABS: ANION GAP 14.2 mEq/L (7-13)
[2021-10-05] MEDS: Carvedilol 25 MG Tab PO SCH ×2 (07:57→17:30)
[2021-10-05] MEDS: Ferrous Sulfate 325 MG Tab PO SCH (07:58)
[2021-10-05] MEDS: Glimepiride 2 MG Tab PO SCH (07:58)
[2021-10-05] MEDS: Acetaminophen/oxyCODONE 325-5 MG Tab PO PRN (07:59)
[2021-10-05] MEDS: HYDROmorphone 0.5 MG/0.5 ML Syringe IVPUSH PRN ×2 (08:00→15:02)
[2021-10-05] MEDS: Sodium Chloride 0.9% 10 ML Syringe FLUSH PRN (08:00)
[2021-10-05] MEDS: Insulin Lispro 100 Units/ML 3 ML Vial SUBCUT SCH ×3 (08:06→17:12)
[2021-10-05] MEDS ORDERED: Warfarin 5 MG Tab PO SCH (09:00)
[2021-10-05] MEDS ORDERED: Non-Formulary Medication 1 Each (Warfarin 1 MG Tablet) PO SCH (09:00)
[2021-10-05] MEDS ORDERED: Non-Formulary Medication 1 Each (Lactobacillus Acidophilus [Acidophilus] 1 EACH Capsule) PO SCH (09:00)
[2021-10-05] MEDS: Cholecalciferol (Vitamin D3) 25 MCG Tab PO SCH (09:18)
[2021-10-05] MEDS: Saccharomyces Boulardii (Probiotic) 250 MG Cap PO SCH ×2 (09:19→21:20)
[2021-10-05] MEDS: Lutein/Minerals/Vit A,C & E Tab PO SCH (09:19)
[2021-10-05] MEDS: Famotidine 20 MG Tab PO SCH ×2 (09:19→21:21)
[2021-10-05] MEDS: Tamsulosin 0.4 MG Cap.ER PO SCH (09:19)
[2021-10-05] MEDS: Digoxin 125 MCG Tab PO SCH (09:20)
[2021-10-05] MEDS: XELODA 500 MG PO SCH ×2 (09:21→22:25)
[2021-10-05] MEDS: Nystatin Topical Powder 30 GM Bottle TOP PRN ×2 (09:22→21:27)
[2021-10-05] MEDS: Ondansetron 4 MG/2 ML SDV IVPUSH PRN ×2 (09:35→17:25)
[2021-10-05] MEDS ORDERED: **NO WARFARIN TODAY PO ONE (14:00)
[2021-10-05] MEDS ORDERED: Melatonin 3 MG Tab PO PRN (21:00)
[2021-10-05] MEDS: Simvastatin 40 MG Tab PO SCH (21:21)
[2021-10-06] MEDS: Piperacillin/Tazobactam 2.25 GM in Sodium Chloride 0.9% 50 ML IV SCH ×4 (02:31→21:34)
[2021-10-06] MEDS ORDERED: Sodium Chloride 0.9% 500 ML IV SCH (04:00)
[2021-10-06 06:06] LABS: ANION GAP 15.8 mEq/L (7-13)
[2021-10-06] MEDS: Digoxin 125 MCG Tab PO SCH (08:10)
[2021-10-06] MEDS: Glimepiride 2 MG Tab PO SCH (08:11)
[2021-10-06] MEDS: Famotidine 20 MG Tab PO SCH ×2 (08:12→22:03)
[2021-10-06] MEDS: Cholecalciferol (Vitamin D3) 25 MCG Tab PO SCH (08:12)
[2021-10-06] MEDS: Carvedilol 25 MG Tab PO SCH ×2 (08:12→17:06)
[2021-10-06] MEDS: Lutein/Minerals/Vit A,C & E Tab PO SCH (08:12)
[2021-10-06] MEDS: Ferrous Sulfate 325 MG Tab PO SCH (08:12)
[2021-10-06] MEDS: Tamsulosin 0.4 MG Cap.ER PO SCH (08:12)
[2021-10-06] MEDS: Saccharomyces Boulardii (Probiotic) 250 MG Cap PO SCH ×2 (08:12→22:03)
[2021-10-06] MEDS: Insulin Lispro 100 Units/ML 3 ML Vial SUBCUT SCH ×3 (08:16→17:07)
[2021-10-06] MEDS: Acetaminophen/oxyCODONE 325-5 MG Tab PO PRN (08:56)
[2021-10-06] MEDS: XELODA 500 MG PO SCH ×2 (09:49→22:03)
[2021-10-06] MEDS ORDERED: *NO WARFARIN TODAY PO ONE (14:00)
[2021-10-06] MEDS: Ondansetron 4 MG/2 ML SDV IVPUSH PRN (17:32)
[2021-10-06] MEDS: Sodium Chloride 0.9% 10 ML Syringe FLUSH PRN (21:34)
[2021-10-06] MEDS: Simvastatin 40 MG Tab PO SCH (22:03)
[2021-10-07] MEDS: Piperacillin/Tazobactam 2.25 GM in Sodium Chloride 0.9% 50 ML IV SCH ×4 (02:54→20:47)
[2021-10-07 06:42] LABS: ANION GAP 13.8 mEq/L (7-13)
[2021-10-07] MEDS: Insulin Lispro 100 Units/ML 3 ML Vial SUBCUT SCH ×5 (08:00→19:45)
[2021-10-07] MEDS: Glimepiride 2 MG Tab PO SCH (08:31)
[2021-10-07] MEDS: Digoxin 125 MCG Tab PO SCH (08:33)
[2021-10-07] MEDS: HYDROmorphone 0.5 MG/0.5 ML Syringe IVPUSH PRN (08:54)
[2021-10-07] MEDS: Saccharomyces Boulardii (Probiotic) 250 MG Cap PO SCH ×2 (08:57→20:46)
[2021-10-07] MEDS: Carvedilol 25 MG Tab PO SCH ×2 (08:58→18:01)
[2021-10-07] MEDS: Cholecalciferol (Vitamin D3) 25 MCG Tab PO SCH (08:58)
[2021-10-07] MEDS: Lutein/Minerals/Vit A,C & E Tab PO SCH (08:59)
[2021-10-07] MEDS: Famotidine 20 MG Tab PO SCH ×2 (08:59→20:46)
[2021-10-07] MEDS: Ferrous Sulfate 325 MG Tab PO SCH (09:00)
[2021-10-07] MEDS: Tamsulosin 0.4 MG Cap.ER PO SCH (09:00)
[2021-10-07] MEDS: XELODA 500 MG PO SCH ×2 (09:58→20:46)
[2021-10-07] MEDS ORDERED: Furosemide 20 MG/2 ML VIAL IVPUSH ONE (14:00)
[2021-10-07] MEDS ORDERED: Warfarin 2 MG Tab PO ONE (14:00)
[2021-10-07] MEDS: Simvastatin 40 MG Tab PO SCH (20:46)
[2021-10-07] MEDS: Acetaminophen/oxyCODONE 325-5 MG Tab PO PRN (22:32)
[2021-10-08] MEDS: Piperacillin/Tazobactam 2.25 GM in Sodium Chloride 0.9% 50 ML IV SCH ×2 (03:16→08:53)
[2021-10-08] MEDS ORDERED: Furosemide 20 MG/2 ML VIAL IVPUSH ONE (05:00)
[2021-10-08 06:02] LABS: ANION GAP 14.6 mEq/L (7-13)
[2021-10-08] MEDS: Cholecalciferol (Vitamin D3) 25 MCG Tab PO SCH (08:51)
[2021-10-08] MEDS: Glimepiride 2 MG Tab PO SCH (08:51)
[2021-10-08] MEDS: Insulin Lispro 100 Units/ML 3 ML Vial SUBCUT SCH (08:52)
[2021-10-08] MEDS: Saccharomyces Boulardii (Probiotic) 250 MG Cap PO SCH (08:52)
[2021-10-08] MEDS: Lutein/Minerals/Vit A,C & E Tab PO SCH (08:53)
[2021-10-08] MEDS: Ferrous Sulfate 325 MG Tab PO SCH (08:53)
[2021-10-08] MEDS: Famotidine 20 MG Tab PO SCH (08:53)
[2021-10-08] MEDS: Tamsulosin 0.4 MG Cap.ER PO SCH (08:53)
[2021-10-08] MEDS: Digoxin 125 MCG Tab PO SCH (09:02)
[2021-10-08] MEDS: Carvedilol 25 MG Tab PO SCH (09:03)
[2021-10-08] MEDS: XELODA 500 MG PO SCH (09:04)
[2021-10-08] MEDS ORDERED: Insulin Lispro 100 Units/ML 3 ML Vial SUBCUT SCH (18:00)
== END 2021-10-08 11:15 | disposition home or self-care (01) ==
LOC: DL.ED 10:46 → DL.MS 14:01
PROVIDERS: ADMIT Internal Medicine; ATTEND Internal Medicine
DX: N45.1 Epididymitis (principal); H54.7 Unspecified visual loss; I25.10 Atherosclerotic heart disease of native coronary artery without angina pectoris; E11.22 Type 2 diabetes mellitus with diabetic chronic kidney disease; I13.0 Hypertensive heart and chronic kidney disease with heart failure and stage 1 through stage 4 chronic kidney disease, or unspecified chronic kidney disease; I48.91 Unspecified atrial fibrillation; I50.9 Heart failure, unspecified; E78.00 Pure hypercholesterolemia, unspecified; B37.9 Candidiasis, unspecified; D64.9 Anemia, unspecified; E11.65 Type 2 diabetes mellitus with hyperglycemia; H91.90 Unspecified hearing loss, unspecified ear; E88.09 Other disorders of plasma-protein metabolism, not elsewhere classified; R79.82 Elevated C-reactive protein (CRP); R79.1 Abnormal coagulation profile; N18.30 Chronic kidney disease, stage 3 unspecified; M10.9 Gout, unspecified; Z98.890 Other specified postprocedural states; Z93.3 Colostomy status; Z88.1 Allergy status to other antibiotic agents; Z88.8 Allergy status to other drugs, medicaments and biological substances; Z68.26 Body mass index [BMI] 26.0-26.9, adult; Z20.822 Contact with and (suspected) exposure to COVID-19; Z79.01 Long term (current) use of anticoagulants; Z79.899 Other long term (current) drug therapy; Z85.038 Personal history of other malignant neoplasm of large intestine; Z87.19 Personal history of other diseases of the digestive system
CPT/HCPCS: 36415; 76870; 80048; 80053; 80162; 81001; 81003; 82306; 82947; 83605; 83735; 85025; 85610; 86140; 87040; 87086; 96365; 96366; 96374; 96375; 96376; 97162-GP; 97165-GO; 97530-GO; 99217; 99219; 99225; 99285-25; A9270-GY; G0378; J1170; J1815-GY; J1940; J2405; J2543; J3490; J7030; J7040; J7050; U0002

== ENCOUNTER 2022-09-19 04:30 | Emergency (ER) | payer MEDICARE, OTHER ==
[2022-09-19 05:15] LABS: ANION GAP 17.1 mEq/L (7-13); CHLORIDE,CL 101 mmol/L (98-107); SODIUM,NA 136 mmol/L (136-145)
[2022-09-19 05:23] LABS: ESTIMATED GFR 31 mL/min (>=60)
[2022-09-19 05:28] LABS: CORONAVIRUS COVID-19 NAA NEGATIVE (NEGATIVE); RESPIRATORY SYNCYTIAL VIR NAA NEGATIVE (NEGATIVE)
[2022-09-19] MEDS ORDERED: Sodium Chloride 0.9% 1,000 ML IV ONE (05:30)
[2022-09-19] MEDS ORDERED: cefTRIAXone 2 GM Vial IVPUSH ONE (07:13)
== END 2022-09-19 08:21 | disposition home or self-care (01) ==
LOC: DL.ED 04:30
DX: N39.0 Urinary tract infection, site not specified (principal); R31.9 Hematuria, unspecified; R53.1 Weakness; I48.91 Unspecified atrial fibrillation; I25.10 Atherosclerotic heart disease of native coronary artery without angina pectoris; I13.0 Hypertensive heart and chronic kidney disease with heart failure and stage 1 through stage 4 chronic kidney disease, or unspecified chronic kidney disease; N18.9 Chronic kidney disease, unspecified; I50.9 Heart failure, unspecified; E78.00 Pure hypercholesterolemia, unspecified; M10.9 Gout, unspecified; E66.9 Obesity, unspecified; Z68.30 Body mass index [BMI] 30.0-30.9, adult; Z88.1 Allergy status to other antibiotic agents; Z88.8 Allergy status to other drugs, medicaments and biological substances; Z20.822 Contact with and (suspected) exposure to COVID-19
CPT/HCPCS: 0241U; 36415; 80053; 80162; 81001; 83605; 85025; 85610; 86140; 87040; 96361; 96374; 99284; 99285; C1758; J0696; J7030

== ENCOUNTER 2022-10-28 13:22 | Emergency (ER) | payer MEDICARE, OTHER ==
[2022-10-28] MEDS ORDERED: Sodium Chloride 0.9% 10 ML Syringe FLUSH PRN (13:49)
[2022-10-28] MEDS ORDERED: Sodium Chloride 0.9% 1,000 ML IV ONE (13:51)
[2022-10-28 14:31] LABS: ANION GAP 17.3 mEq/L (7-13); CHLORIDE,CL 103 mmol/L (98-107); SODIUM,NA 142 mmol/L (136-145)
[2022-10-28 14:32] LABS: ESTIMATED GFR 27 mL/min (>=60)
== END 2022-10-28 17:24 ==
LOC: DL.ED 13:22
DX: K56.609 Unspecified intestinal obstruction, unspecified as to partial versus complete obstruction (principal); R33.9 Retention of urine, unspecified; I31.39 Other pericardial effusion (noninflammatory); I25.10 Atherosclerotic heart disease of native coronary artery without angina pectoris; I48.91 Unspecified atrial fibrillation; I13.0 Hypertensive heart and chronic kidney disease with heart failure and stage 1 through stage 4 chronic kidney disease, or unspecified chronic kidney disease; N18.9 Chronic kidney disease, unspecified; I50.9 Heart failure, unspecified; E66.9 Obesity, unspecified; Z88.1 Allergy status to other antibiotic agents; Z88.8 Allergy status to other drugs, medicaments and biological substances; Z79.899 Other long term (current) drug therapy; Z79.01 Long term (current) use of anticoagulants; Z68.28 Body mass index [BMI] 28.0-28.9, adult
CPT/HCPCS: 36415; 51702; 74018; 74176; 80053; 81001; 83605; 83880; 84145; 85025; 96360; 99284; 99285-25; J3490; J7030

== ENCOUNTER 2022-11-06 17:27 | Emergency (ER) | payer MEDICARE, OTHER ==
[2022-11-06] MEDS ORDERED: Ciprofloxacin 500 MG Tab PO ONE (19:11)
== END 2022-11-06 19:27 | disposition home or self-care (01) ==
LOC: DL.ED 17:27
DX: T83.511A Infection and inflammatory reaction due to indwelling urethral catheter, initial encounter (principal); N39.0 Urinary tract infection, site not specified; R31.9 Hematuria, unspecified; I25.10 Atherosclerotic heart disease of native coronary artery without angina pectoris; E78.00 Pure hypercholesterolemia, unspecified; I13.0 Hypertensive heart and chronic kidney disease with heart failure and stage 1 through stage 4 chronic kidney disease, or unspecified chronic kidney disease; E11.22 Type 2 diabetes mellitus with diabetic chronic kidney disease; N18.9 Chronic kidney disease, unspecified; I50.9 Heart failure, unspecified; I48.91 Unspecified atrial fibrillation; E66.9 Obesity, unspecified; Z79.01 Long term (current) use of anticoagulants; Z79.899 Other long term (current) drug therapy; Z88.1 Allergy status to other antibiotic agents; Z88.8 Allergy status to other drugs, medicaments and biological substances; Z68.28 Body mass index [BMI] 28.0-28.9, adult
CPT/HCPCS: 81001; 87086; 87088; 87186; 99283; A9270

== ENCOUNTER 2024-03-12 14:18 | Emergency (ER) | payer MEDICARE, BC ==
[2024-03-12] MEDS ORDERED: Sodium Chloride 0.9% 1,000 ML IV ONE (14:33)
[2024-03-12 14:39] LABS: BASOPHILS PERCENT AUTO 0.2 % (0.0-1.0); EOSINOPHILS PERCENT AUTO 0.3 % (1.0-3.0); HEMATOCRIT 37.9 % (40.0-54.0); HEMOGLOBIN 12.5 g/dL (14.0-18.0); LYMPHOCYTES PERCENT AUTO 9.4 % (20.5-50.1); MEAN CORPUSCULAR HEMOGLOBIN 29.8 pg (27.0-34.0); MEAN CORPUSCULAR VOLUME 90.2 fL (80-100); MONOCYTES PERCENT AUTO 9.8 % (2-8); NEUTROPHILS PERCENT AUTO 80.3 % (42.2-75.2); PLATELET COUNT,PLT 188 10^3/uL (150-450); WHITE BLOOD CELL COUNT,WBC 13.2 10^3/uL (5.0-10.0)
[2024-03-12 14:54] LABS: INR 2.6 (0.9-1.2); PTT,PARTIAL THROMBOPLSTIN TIME 32.3 SEC (22.0-34.0)
[2024-03-12 14:57] LABS: A/G RATIO 0.8; ALANINE AMINOTRANSFERASE,ALT 20 U/L (16-63); ALBUMIN 3.6 g/dL (3.4-5.0); ALKALINE PHOSPHATASE 76 U/L (46-116); ANION GAP 11.6 mEq/L (7-13); ASPARTATE AMNIOTRANSFERASE,AST 18 U/L (15-37); BILIRUBIN TOTAL 0.7 mg/dL (0.2-1.0); BLOOD UREA NITROGEN,BUN 27 mg/dL (7-18); BUN/CREATININE RATIO 13.8 (No establ ref range); C-REACTIVE PROTEIN 0.61 ng/dL (<=0.50); CALCIUM 9.1 mg/dL (8.5-10.1); CARBON DIOXIDE,CO2 25 mmol/L (21-32); CHLORIDE,CL 103 mmol/L (98-107); CREATININE 1.95 mg/dL (0.70-1.30); EST CRCL DRUG DOSING (CG) 30.21 mL/min; GLUCOSE RANDOM 207 mg/dL (70-99); MAGNESIUM 1.5 mg/dL (1.8-2.4); POTASSIUM,K 4.6 mmol/L (3.5-5.1); PROTEIN TOTAL,TP 8.1 g/dL (6.4-8.2); SODIUM,NA 135 mmol/L (136-145)
[2024-03-12 14:58] LABS: LACTIC ACID 1.8 mmol/L (0.4-2.0)
[2024-03-12 15:00] LABS: ESTIMATED GFR 34 mL/min (>=60)
[2024-03-12] MEDS: Sodium Chloride 0.9% 1,000 ML IV ONE (15:03)
[2024-03-12] MEDS: Sodium Chloride 0.9% 10 ML Syringe FLUSH PRN (15:03)
[2024-03-12] MEDS: Ondansetron 4 MG/2 ML SDV IVPUSH ONE (15:03)
[2024-03-12] MEDS: Iopamidol 612 MG/ML 100 ML Bottle IVPUSH ONE (15:25)
[2024-03-12] MEDS: Magnesium Sulfate/Water 2 GM in Premix Bag 1 BAG IV ONE (15:30)
[2024-03-12 16:42] LABS: APPEARANCE,URINE SLIGHTLY CLOUDY (CLEAR); BILIRUBIN,URINE NEGATIVE (NEGATIVE); COLOR,URINE YELLOW (YELLOW); GLUCOSE,URINE NEGATIVE (NEGATIVE); KETONES,URINE NEGATIVE (NEGATIVE); LEUKOCYTE ESTERASE,URINE SMALL (NEGATIVE); NITRITE,URINE POSITIVE (NEGATIVE); OCCULT BLOOD,URINE MODERATE (NEGATIVE); PH,URINE 5.5 (5.0-9.0); PROTEIN,URINE 100 (NEGATIVE); UROBILINOGEN,URINE 0.2 mg/dL (0.2-1.0)
[2024-03-12] MEDS: Metoprolol Tartrate 5 MG/5 ML SDV IVPUSH ONE (16:46)
[2024-03-12 17:13] LABS: AMORPHOUS SEDIMENT,URINE FEW /HPF (NOT SEEN); BACTERIA,URINE MANY /HPF (0-FEW/HPF); EPITHELIAL CELLS,URINE FEW /HPF (NOT SEEN); MUCUS,URINE MODERATE /LPF (NOT SEEN); RBC,URINE 0-5 /HPF (0-5); WBC,URINE SEMI-PACKED /HPF (0-5/HPF)
[2024-03-12] MEDS: cefTRIAXone 1 GM Vial IVPUSH ONE (17:18)
[2024-03-12] MEDS: Diltiazem 125 MG in Sodium Chloride 0.9% 100 ML IV SCH (18:50)
[2024-03-12] MEDS: metroNIDAZOLE/Normal Saline 500 MG in Premix Bag 1 BAG IV ONE (18:53)
== END 2024-03-12 19:40 ==
LOC: DL.ED 14:18
DX: I48.91 Unspecified atrial fibrillation (principal); N17.9 Acute kidney failure, unspecified; I31.39 Other pericardial effusion (noninflammatory); N39.0 Urinary tract infection, site not specified; K61.1 Rectal abscess; R53.1 Weakness; E83.42 Hypomagnesemia; I13.0 Hypertensive heart and chronic kidney disease with heart failure and stage 1 through stage 4 chronic kidney disease, or unspecified chronic kidney disease; I50.9 Heart failure, unspecified; N18.9 Chronic kidney disease, unspecified; E78.00 Pure hypercholesterolemia, unspecified; E66.9 Obesity, unspecified; E11.9 Type 2 diabetes mellitus without complications; Z88.8 Allergy status to other drugs, medicaments and biological substances; Z79.899 Other long term (current) drug therapy; Z90.49 Acquired absence of other specified parts of digestive tract
CPT/HCPCS: 36415; 71045; 74177; 80053; 81001; 82947; 83605; 83735; 83880; 84145; 84484; 85025; 85610; 85730; 86140; 87040; 87077; 87086; 87088; 87186; 87804; 93005; 93010; 96365; 96366; 96367; 96368; 96375; 99285; J0696; J1836; J2405; J3475; J3490; J7030; Q9967; U0002

== ENCOUNTER 2024-06-12 12:58 | Inpatient (IN) | payer MEDICARE, BC ==
[~2024-06-12 12:58] MED LIST changes: -Midazolam 1 MG/ML 2 ML SDV ONE; +Sodium Chloride 0.9% 10 ML Syringe FLUSH PRN
[2024-06-12 13:16] LABS: BASOPHILS PERCENT AUTO 0.2 % (0.0-1.0); EOSINOPHILS PERCENT AUTO 0.1 % (1.0-3.0); HEMATOCRIT 35.4 % (40.0-54.0); HEMOGLOBIN 11.7 g/dL (14.0-18.0); LYMPHOCYTES PERCENT AUTO 11.2 % (20.5-50.1); MEAN CORPUSCULAR HEMOGLOBIN 29.8 pg (27.0-34.0); MEAN CORPUSCULAR HGB CONC 33.1 g/dL (33.0-35.0); MEAN CORPUSCULAR VOLUME 90.1 fL (80-100); NEUTROPHILS PERCENT AUTO 80.5 % (42.2-75.2); PLATELET COUNT,PLT 262 10^3/uL (150-450); RED BLOOD CELL COUNT 3.93 10^6/uL (4.6-6.2); WHITE BLOOD CELL COUNT,WBC 11.8 10^3/uL (5.0-10.0)
[2024-06-12] MEDS: Sodium Chloride 0.9% 500 ML IV SCH (13:19)
[2024-06-12 13:36] LABS: A/G RATIO 0.7; ALBUMIN 3.1 g/dL (3.4-5.0); ANION GAP 15.6 mEq/L (7-13); BILIRUBIN TOTAL 0.5 mg/dL (0.2-1.0); BUN/CREATININE RATIO 14.1 (No establ ref range); C-REACTIVE PROTEIN 1.28 ng/dL (<=0.50); CREATININE 2.62 mg/dL (0.70-1.30); EST CRCL DRUG DOSING (CG) 22.49 mL/min; MAGNESIUM 1.8 mg/dL (1.8-2.4); POTASSIUM,K 4.6 mmol/L (3.5-5.1); PROTEIN TOTAL,TP 7.5 g/dL (6.4-8.2)
[2024-06-12 13:39] LABS: LACTIC ACID 1.8 mmol/L (0.4-2.0)
[2024-06-12] MEDS: Sodium Chloride 0.9% 1,000 ML IV ONE (13:53)
[2024-06-12 15:11] LABS: APPEARANCE,URINE CLOUDY (CLEAR); BILIRUBIN,URINE NEGATIVE (NEGATIVE); COLOR,URINE YELLOW (YELLOW); GLUCOSE,URINE 500 (NEGATIVE); KETONES,URINE NEGATIVE (NEGATIVE); LEUKOCYTE ESTERASE,URINE SMALL (NEGATIVE); NITRITE,URINE NEGATIVE (NEGATIVE); OCCULT BLOOD,URINE TRACE-INTACT (NEGATIVE); PH,URINE 5.5 (5.0-9.0); PROTEIN,URINE >=300 (NEGATIVE); UROBILINOGEN,URINE 0.2 mg/dL (0.2-1.0)
[2024-06-12 15:16] LABS: BACTERIA,URINE MANY /HPF (0-FEW/HPF)
[2024-06-12 15:17] LABS: AMORPHOUS SEDIMENT,URINE FEW /HPF (NOT SEEN); WBC,URINE >100 /HPF (0-5/HPF)
[2024-06-12 15:18] LABS: EPITHELIAL CELLS,URINE NOT SEEN /HPF (NOT SEEN); RBC,URINE 0-5 /HPF (0-5)
[2024-06-12] MEDS: cefTRIAXone 2 GM Vial IVPUSH ONE (15:39)
[2024-06-12 16:46] LABS: HEMOGLOBIN A1C 9.2 % (<5.7)
[2024-06-12] MEDS ORDERED: Albuterol/Ipratropium 3.0-0.5 MG/3 ML Neb Soln NEB PRN (17:54)
[2024-06-12] MEDS ORDERED: Ondansetron 4 MG/2 ML SDV IVPUSH PRN (17:54)
[2024-06-12] MEDS ORDERED: Polyethylene Glycol 3350 Powder 17 GM Packet PO PRN (17:54)
[2024-06-12] MEDS ORDERED: Acetaminophen 325 MG Tab PO PRN (17:54)
[2024-06-12] MEDS ORDERED: Docusate Sodium 100 MG Cap PO PRN (17:54)
[2024-06-12] MEDS ORDERED: Sodium Chloride 0.9% 1,000 ML IV SCH (18:00)
[2024-06-12] MEDS ORDERED: Glucagon,Human Recombinant 1 MG Vial IM PRN ×3 (18:06→23:01)
[2024-06-12] MEDS ORDERED: 50% Dextrose in Water 50 ML Syringe IVPUSH PRN ×3 (18:06→23:01)
[2024-06-12 18:56] LABS: CREATINE KINASE,CK 46 U/L (39-308)
[2024-06-12] MEDS ORDERED: Glimepiride 2 MG Tab PO SCH (21:00)
[2024-06-12] MEDS: Simvastatin 40 MG Tab PO SCH (21:05)
[2024-06-12] MEDS: Warfarin 5 MG Tab PO ONE (21:05)
[2024-06-12] MEDS: Insulin Lispro 100 Units/ML 3 ML Vial SUBCUT SCH (21:13)
[2024-06-12] MEDS: Non-Formulary Medication 1 Each (Vit A/C/E Ac/Znox/Cupric Oxide [Eye Vitamin-Minerals Tabl PO SCH (23:35)
[2024-06-13] MEDS: Insulin Glarg,Human.Rec.Analog 100 Unit/ML 10 ML Vial SUBCUT SCH (01:20)
[2024-06-13 06:40] LABS: BASOPHILS PERCENT AUTO 0.3 % (0.0-1.0); EOSINOPHILS PERCENT AUTO 1.7 % (1.0-3.0); HEMATOCRIT 34.8 % (40.0-54.0); HEMOGLOBIN 11.1 g/dL (14.0-18.0); LYMPHOCYTES PERCENT AUTO 22.5 % (20.5-50.1); MEAN CORPUSCULAR HEMOGLOBIN 29.1 pg (27.0-34.0); MEAN CORPUSCULAR HGB CONC 31.9 g/dL (33.0-35.0); MEAN CORPUSCULAR VOLUME 91.3 fL (80-100); NEUTROPHILS PERCENT AUTO 62.5 % (42.2-75.2); PLATELET COUNT,PLT 240 10^3/uL (150-450); RED BLOOD CELL COUNT 3.81 10^6/uL (4.6-6.2)
[2024-06-13 06:59] LABS: INR 3.1 (0.9-1.2); PROTHROMBIN TIME 29.8 SEC (9.0-12.0); PTT,PARTIAL THROMBOPLSTIN TIME 38.4 SEC (22.0-34.0)
[2024-06-13 07:06] LABS: ALBUMIN 2.8 g/dL (3.4-5.0); ANION GAP 15.2 mEq/L (7-13); BILIRUBIN TOTAL 0.3 mg/dL (0.2-1.0); BUN/CREATININE RATIO 16.8 (No establ ref range); CALCIUM 8.7 mg/dL (8.5-10.1); CREATININE 2.08 mg/dL (0.70-1.30); EST CRCL DRUG DOSING (CG) 24.64 mL/min; MAGNESIUM 1.9 mg/dL (1.8-2.4); POTASSIUM,K 4.2 mmol/L (3.5-5.1); PROTEIN TOTAL,TP 7.1 g/dL (6.4-8.2)
[2024-06-13 07:07] LABS: A/G RATIO 0.65
[2024-06-13 08:00] LABS: C-REACTIVE PROTEIN 2.88 ng/dL (<=0.50); FOLIC ACID 4.3 ng/mL (8.6-58.9)
[2024-06-13] MEDS ORDERED: Insulin Lispro 100 Units/ML 3 ML Vial SUBCUT SCH ×2 (08:00→17:00)
[2024-06-13] MEDS ORDERED: Losartan 25 MG Tab PO SCH (09:00)
[2024-06-13] MEDS: Sodium Chloride 0.9% 1,000 ML IV SCH (09:00)
[2024-06-13] MEDS: Sertraline 50 MG Tab PO SCH (09:02)
[2024-06-13] MEDS: Ferrous Sulfate 325 MG Tab PO SCH (09:03)
[2024-06-13] MEDS: Carvedilol 6.25 MG Tab PO SCH (09:03)
[2024-06-13] MEDS: Calcitriol 0.25 MCG Cap PO SCH (09:03)
[2024-06-13] MEDS: Tamsulosin 0.4 MG Cap.ER PO SCH (09:03)
[2024-06-13] MEDS: Cyanocobalamin (Vitamin B12) 1,000 MCG Tab PO SCH (09:05)
[2024-06-13] MEDS: Digoxin 125 MCG Tab PO SCH (09:05)
[2024-06-13] MEDS ORDERED: Glucagon,Human Recombinant 1 MG Vial IM PRN (12:35)
[2024-06-13] MEDS ORDERED: 50% Dextrose in Water 50 ML Syringe IVPUSH PRN (12:35)
[2024-06-13] MEDS: Bacitracin Oint 28.35 GM Tube TOP SCH (13:46)
[2024-06-13] MEDS: cefTRIAXone 1 GM Vial IVPUSH SCH (17:39)
[2024-06-13] MEDS: Melatonin 3 MG Tab PO PRN (21:15)
[2024-06-13] MEDS: Warfarin** 1 MG TABLET PO ONE (21:15)
[2024-06-14 06:52] LABS: BASOPHILS PERCENT AUTO 0.3 % (0.0-1.0); EOSINOPHILS PERCENT AUTO 2.4 % (1.0-3.0); HEMATOCRIT 31.9 % (40.0-54.0); HEMOGLOBIN 10.2 g/dL (14.0-18.0); LYMPHOCYTES PERCENT AUTO 25.5 % (20.5-50.1); MEAN CORPUSCULAR HEMOGLOBIN 29.3 pg (27.0-34.0); MEAN CORPUSCULAR VOLUME 91.7 fL (80-100); NEUTROPHILS PERCENT AUTO 59.8 % (42.2-75.2); PLATELET COUNT,PLT 226 10^3/uL (150-450); RED BLOOD CELL COUNT 3.48 10^6/uL (4.6-6.2); WHITE BLOOD CELL COUNT,WBC 6.2 10^3/uL (5.0-10.0)
[2024-06-14 07:09] LABS: INR 2.9 (0.9-1.2); PROTHROMBIN TIME 28.1 SEC (9.0-12.0); PTT,PARTIAL THROMBOPLSTIN TIME 36.6 SEC (22.0-34.0)
[2024-06-14 07:23] LABS: ALBUMIN 2.5 g/dL (3.4-5.0); ANION GAP 14.4 mEq/L (7-13); BILIRUBIN TOTAL 0.3 mg/dL (0.2-1.0); BUN/CREATININE RATIO 14.8 (No establ ref range); CALCIUM 8.3 mg/dL (8.5-10.1); CREATININE 1.69 mg/dL (0.70-1.30); EST CRCL DRUG DOSING (CG) 30.33 mL/min; MAGNESIUM 1.6 mg/dL (1.8-2.4); POTASSIUM,K 4.4 mmol/L (3.5-5.1); PROTEIN TOTAL,TP 6.5 g/dL (6.4-8.2)
[2024-06-14 07:30] LABS: A/G RATIO 0.63
[2024-06-14] MEDS: Magnesium Sulfate/Water Premix 2 GM in Premix Bag 1 BAG IV ONE (08:34)
[2024-06-14] MEDS: Insulin Glarg,Human.Rec.Analog 100 Unit/ML 10 ML Vial SUBCUT SCH (08:38)
[2024-06-14] MEDS: Warfarin** 1 MG TABLET PO ONE (15:06)
[2024-06-15] MEDS: Pantoprazole 40 MG Tab.CR PO SCH (06:27)
[2024-06-15] MEDS: Folic Acid 1 MG Tab PO SCH (09:16)
== END 2024-06-15 11:30 | disposition home or self-care (01) | DRG 683 ==
LOC: DL.ED 12:58 → DL.MS 15:38
PROVIDERS: ADMIT Internal Medicine; ATTEND Internal Medicine
PROC: 0T9B70Z Drainage of Bladder with Drainage Device, Via Natural or Artificial Opening (ICD-10-PCS; principal; 2024-06-13)
DX: N17.9 Acute kidney failure, unspecified (principal); I13.0 Hypertensive heart and chronic kidney disease with heart failure and stage 1 through stage 4 chronic kidney disease, or unspecified chronic kidney disease; I50.32 Chronic diastolic (congestive) heart failure; I50.9 Heart failure, unspecified; N18.9 Chronic kidney disease, unspecified; N39.0 Urinary tract infection, site not specified; I48.91 Unspecified atrial fibrillation; I25.10 Atherosclerotic heart disease of native coronary artery without angina pectoris; E11.9 Type 2 diabetes mellitus without complications; E78.00 Pure hypercholesterolemia, unspecified; E11.22 Type 2 diabetes mellitus with diabetic chronic kidney disease; M10.9 Gout, unspecified; E66.9 Obesity, unspecified; D63.1 Anemia in chronic kidney disease; Z68.26 Body mass index [BMI] 26.0-26.9, adult; D72.829 Elevated white blood cell count, unspecified; E88.09 Other disorders of plasma-protein metabolism, not elsewhere classified; N31.9 Neuromuscular dysfunction of bladder, unspecified; H91.90 Unspecified hearing loss, unspecified ear; H54.7 Unspecified visual loss; R33.9 Retention of urine, unspecified; E11.65 Type 2 diabetes mellitus with hyperglycemia; B96.20 Unspecified Escherichia coli [E. coli] as the cause of diseases classified elsewhere; E53.8 Deficiency of other specified B group vitamins; N18.30 Chronic kidney disease, stage 3 unspecified; Z79.01 Long term (current) use of anticoagulants; Z88.1 Allergy status to other antibiotic agents; Z88.8 Allergy status to other drugs, medicaments and biological substances; Z79.84 Long term (current) use of oral hypoglycemic drugs; Z79.899 Other long term (current) drug therapy; Z79.2 Long term (current) use of antibiotics; Z87.19 Personal history of other diseases of the digestive system; Z68.28 Body mass index [BMI] 28.0-28.9, adult; Z85.038 Personal history of other malignant neoplasm of large intestine; Z90.89 Acquired absence of other organs; Z98.49 Cataract extraction status, unspecified eye; Z90.49 Acquired absence of other specified parts of digestive tract; Z98.890 Other specified postprocedural states; Z93.3 Colostomy status
CPT/HCPCS: 80053; 81001; 83036; 83605; 83735; 85025; 86140; 87086; 87088; 87186; 87428; 99284; 99285; C1758 ×2; J7030; J7040; 36415; 51702; 71045; 76770; 82550; 82607; 82746; 82947; 84484; 85610; 85730; 97165-GO; 97530-GO; A9270-GY; J0696; J1815-GY; J3475

== ENCOUNTER 2024-11-20 10:21 | Emergency (ER) | payer MEDICARE ==
[2024-11-20 10:44] LABS: HEMATOCRIT 34.5 % (40.0-54.0); HEMOGLOBIN 11.4 g/dL (14.0-18.0); MEAN CORPUSCULAR HEMOGLOBIN 30.6 pg (27.0-34.0); MEAN CORPUSCULAR VOLUME 92.5 fL (80-100); PLATELET COUNT,PLT 176 10^3/uL (150-450); RED BLOOD CELL COUNT 3.73 10^6/uL (4.6-6.2)
[2024-11-20 11:02] LABS: BASOPHILS PERCENT AUTO 0.3 % (0.0-1.0); EOSINOPHILS PERCENT AUTO 1.6 % (1.0-3.0); LYMPHOCYTES PERCENT AUTO 19.3 % (20.5-50.1); MONOCYTES PERCENT AUTO 12.9 % (2-8); NEUTROPHILS PERCENT AUTO 65.9 % (42.2-75.2)
[2024-11-20 11:11] LABS: A/G RATIO 0.78; ALANINE AMINOTRANSFERASE,ALT 40 U/L (16-63); ALBUMIN 3.2 g/dL (3.4-5.0); ALKALINE PHOSPHATASE 77 U/L (46-116); ANION GAP 15.1 mEq/L (7-13); ASPARTATE AMNIOTRANSFERASE,AST 38 U/L (15-37); BILIRUBIN TOTAL 0.4 mg/dL (0.2-1.0); BLOOD UREA NITROGEN,BUN 30 mg/dL (7-18); BUN/CREATININE RATIO 16.9 (No establ ref range); CALCIUM 8.9 mg/dL (8.5-10.1); CARBON DIOXIDE,CO2 21 mmol/L (21-32); CHLORIDE,CL 109 mmol/L (98-107); CREATININE 1.77 mg/dL (0.70-1.30); ESTIMATED GFR 38 mL/min (>=60); GLUCOSE RANDOM 190 mg/dL (70-99); MAGNESIUM 1.7 mg/dL (1.8-2.4); POTASSIUM,K 4.1 mmol/L (3.5-5.1); PROTEIN TOTAL,TP 7.3 g/dL (6.4-8.2); SODIUM,NA 141 mmol/L (136-145)
[2024-11-20 11:16] LABS: INR 1.9 (0.9-1.2); PROTHROMBIN TIME 18.9 SEC (9.0-12.0); PTT,PARTIAL THROMBOPLSTIN TIME 28.5 SEC (22.0-34.0)
[2024-11-20 12:23] LABS: O2 DELIVERY DEVICE ROOM AIR
[2024-11-20 12:29] LABS: BAND PERCENT MAN 6 %; EOSINOPHILS PERCENT MAN 2 % (1-3); LYMPHOCYTES PERCENT MAN 22 % (20-50); MONOCYTES PERCENT MAN 10 % (2-8); SEG NEUTROPHILS PERCENT MAN 60 % (42-75)
[2024-11-20 12:48] LABS: PH,VENOUS 7.35 (7.31-7.41)
[2024-11-20 12:49] LABS: BASE EXCESS VENOUS -6.1 mmol/l ((-2)-(+3)); BICARBONATE,VENOUS 18 mmol/l (19-25); O2 SATURATION VENOUS 79.8 % (60-80); PCO2 VENOUS 34 mmHg (41-51); PO2 VENOUS 52 mmHg (35-42)
[2024-11-20] MEDS: Lidocaine 2% Jelly 10 ML Urojet MUCMEM ONE (13:11)
[2024-11-20] MEDS: Lidocaine 2% Jelly 10 ML Urojet ONE (13:12)
[2024-11-20 13:16] LABS: APPEARANCE,URINE CLEAR (CLEAR); BILIRUBIN,URINE NEGATIVE (NEGATIVE); COLOR,URINE YELLOW (YELLOW); GLUCOSE,URINE NEGATIVE (NEGATIVE); KETONES,URINE NEGATIVE (NEGATIVE); LEUKOCYTE ESTERASE,URINE NEGATIVE (NEGATIVE); NITRITE,URINE NEGATIVE (NEGATIVE); OCCULT BLOOD,URINE TRACE-INTACT (NEGATIVE); PH,URINE 5.5 (5.0-9.0); PROTEIN,URINE 100 (NEGATIVE); UROBILINOGEN,URINE 0.2 mg/dL (0.2-1.0)
[2024-11-20] MEDS: Iopamidol 612 MG/ML 100 ML Bottle IVPUSH ONE (13:29)
[2024-11-20] MEDS: Sodium Chloride 0.9% 1,000 ML IV SCH (14:03)
[2024-11-20 14:04] LABS: BACTERIA,URINE RARE /HPF (0-FEW/HPF); EPITHELIAL CELLS,URINE RARE /HPF (NOT SEEN); RBC,URINE 0-5 /HPF (0-5); WBC,URINE 0-5 /HPF (0-5/HPF)
== END 2024-11-20 16:26 | disposition home or self-care (01) ==
LOC: DL.ED 10:21
DX: R10.9 Unspecified abdominal pain (principal); I48.91 Unspecified atrial fibrillation; I13.0 Hypertensive heart and chronic kidney disease with heart failure and stage 1 through stage 4 chronic kidney disease, or unspecified chronic kidney disease; N18.9 Chronic kidney disease, unspecified; I50.9 Heart failure, unspecified; I25.10 Atherosclerotic heart disease of native coronary artery without angina pectoris; E11.22 Type 2 diabetes mellitus with diabetic chronic kidney disease; Z88.1 Allergy status to other antibiotic agents; Z88.8 Allergy status to other drugs, medicaments and biological substances; Z79.899 Other long term (current) drug therapy; Z79.84 Long term (current) use of oral hypoglycemic drugs
CPT/HCPCS: 36415; 71045; 74177; 80053; 81001; 82803; 82947; 83735; 83880; 84484; 85025; 85610; 85730; 99283; 99285; A9270; C1758; J7030; Q9967

== ENCOUNTER 2024-12-19 00:06 | Emergency (ER) | payer MEDICARE ==
[2024-12-19 00:29] LABS: BASOPHILS PERCENT AUTO 0.3 % (0.0-1.0); EOSINOPHILS PERCENT AUTO 2.6 % (1.0-3.0); HEMATOCRIT 34.4 % (40.0-54.0); HEMOGLOBIN 11.2 g/dL (14.0-18.0); LYMPHOCYTES PERCENT AUTO 21.6 % (20.5-50.1); MEAN CORPUSCULAR HGB CONC 32.6 g/dL (33.0-35.0); MEAN CORPUSCULAR VOLUME 92.2 fL (80-100); MONOCYTES PERCENT AUTO 13.9 % (2-8); NEUTROPHILS PERCENT AUTO 61.6 % (42.2-75.2); PLATELET COUNT,PLT 229 10^3/uL (150-450); RED BLOOD CELL COUNT 3.73 10^6/uL (4.6-6.2); WHITE BLOOD CELL COUNT,WBC 7.4 10^3/uL (5.0-10.0)
[2024-12-19] MEDS: Acetaminophen 500 MG Tab PO ONE (00:39)
[2024-12-19 00:44] LABS: INR 2.2 (0.9-1.2); PROTHROMBIN TIME 21.4 SEC (9.0-12.0)
[2024-12-19 02:12] LABS: SODIUM,NA 138 mmol/L (138-146)
[2024-12-19 02:13] LABS: BLOOD UREA NITROGEN,BUN 34 mg/dL (8-26); CARBON DIOXIDE,CO2 17 mmol/L (23-30); CHLORIDE,CL 115 mmol/L (98-107); CREATININE 2.09 mg/dL (0.51-1.19); GLUCOSE RANDOM 103 mg/dL (74-100)
[2024-12-19 02:14] LABS: ESTIMATED GFR 31 mL/min (>=60)
[2024-12-19 05:07] LABS: CALCIUM 1.2 mg/dL (8.5-10.1)
== END 2024-12-19 01:42 | disposition home or self-care (01) ==
LOC: DL.ED 00:06
DX: S00.03XA Contusion of scalp, initial encounter (principal); S00.91XA Abrasion of unspecified part of head, initial encounter; S80.211A Abrasion, right knee, initial encounter; S50.311A Abrasion of right elbow, initial encounter; I13.0 Hypertensive heart and chronic kidney disease with heart failure and stage 1 through stage 4 chronic kidney disease, or unspecified chronic kidney disease; I50.9 Heart failure, unspecified; N18.9 Chronic kidney disease, unspecified; E66.9 Obesity, unspecified; E11.22 Type 2 diabetes mellitus with diabetic chronic kidney disease; Z88.1 Allergy status to other antibiotic agents; Z88.8 Allergy status to other drugs, medicaments and biological substances; Z79.01 Long term (current) use of anticoagulants; Z79.899 Other long term (current) drug therapy; Z90.49 Acquired absence of other specified parts of digestive tract; W01.198A Fall on same level from slipping, tripping and stumbling with subsequent striking against other object, initial encounter
CPT/HCPCS: 36415; 70450; 80048; 85025; 85610; 99283; 99284